=== PATIENT | female | born 1950 | race Caucasian/White ===

== ENCOUNTER 2023-08-16 18:53 | Emergency (ER) | payer MEDICARE, SELFPAY ==
[2023-08-16 18:56] VITALS: BP 149/86; PULSE 94; RESP 18; TEMP 36.2; O2SAT 100; BMI 40.2
--- NOTE | 2023-08-16 19:27 | RAD_ITS ---
EXAM: XR LEFT KNEE COMPLETE, 4 OR MORE VIEWS CLINICAL INDICATION: PAIN AFTER FALL TECHNIQUE: Four or more views of the left knee. COMPARISON: No relevant prior studies available. FINDINGS: BONES/JOINTS: Total left knee arthroplasty. No acute fracture. No subluxation. Normal alignment. No sclerotic or destructive changes observed. SOFT TISSUES: Unremarkable. No soft tissue swelling or gas. No radiopaque foreign body. VASCULATURE: Vascular calcifications. RAD/Knee 4 or More Views IMPRESSION: No acute findings in the left knee. Electronically Signed: Juan Blanc MD at 19:53 EDT ,
--- NOTE | 2023-08-16 19:33 | EDS_ITS ---
HPI <DEACON Robert - Last Filed: 08/16/23 21:56> History of Present Illness Chief Complaint: Fall Narrative Narrative: 73-year-old female tripped down 1 step while taking the trash out to her porch. She landed on her left knee. She states she fell onto the trash bag and did not hit her head or lose consciousness. She hit her life alert and family came over within 20 minutes and helped her up. She was able to walk using her rollator. She does not typically need to use this. She denies weakness or numbness or tingling. She had a left knee replacement in 1995. She is not on blood thinners. [facility] [place] <DEACON Robert - Last Filed: 08/16/23 21:56> [facility] [place] Medical History unable to obtain Allergy/AdvReac Type Severity Reaction Status Date / Time niacin AdvReac Intermediate HOT Verified 08/16/23 18:56 morphine AdvReac Mild Vomiting Verified 08/16/23 18:56 Social History Smoking Status: Never smoker ROS <DEACON Robert Last Filed: 08/16/23 21:56> ROS ED ROS Narrative Neuro: Negative for motor/sensory dysfunction. Skin: Negative for wound. Musc: Positive for left knee pain, trauma. Heme: Negative for easy bruising, bleeding, lymphadenopathy. EXAM <DEACON Robert Last Filed: 08/16/23 21:56> Physical Exam Narrative Exam Narrative: CONST: Patient sitting in no acute distress. EYES: Normal inspection. NECK: Normal inspection. RESP: No respiratory distress, CTAB. CVS: Regular rate and rhythm, no murmur, no gallop. ABD: Soft and nontender, no guarding or rebound, nondistended. SKIN: Color normal, no rash, warm, dry, intact. EXTREMITIES: Normal appearance of upper and lower extremities. No bony tenderness of the upper extremities and 2+ radial pulses. No shortening or rotation of lower extremities, mild tenderness left posterior hip, no pain with logroll. Tender over medial knee joint line. No deformity or crepitus of the knee. Full range of motion with normal extension. No tenderness of the lower leg ankle or foot. Normal sensation and 2+ DP pulses. Upper extremities nontender. NEURO: Oriented and answering questions appropriately. PSYCH: Normal affect. Const Vital Signs: 08/16/23 18:56 08/16/23 21:26 Temperature 97.1 F L 98.1 F Temperature Source Temporal Pulse Rate 94 81 Respiratory Rate 18 16 Blood Pressure 149/86 H 132/81 H Blood Pressure Mean 107 98 Pulse Ox 100 99 Oxygen Delivery Method Room Air <Dr. Papa Keyes DO - Last Filed: 08/16/23 22:55> Physical Exam Const Vital Signs: 08/16/23 18:56 08/16/23 21:26 Temperature 97.1 F L 98.1 F Temperature Source Temporal Pulse Rate 94 81 Respiratory Rate 18 16 Blood Pressure 149/86 H 132/81 H Blood Pressure Mean 107 98 Pulse Ox 100 99 Oxygen Delivery Method Room Air MDM <DEACON Robert - Last Filed: 08/16/23 21:56> MDM MDM Narrative Medical decision making narrative: History gathered from: Patient and family members Differential: Hip/knee contusion versus fracture Patient had a mechanical fall landing on her left knee. She is able to ambulate but has pain in the hip and knee. History of remote left knee replacement. No head injury. She has mild tenderness of left lateral hip. No shortening or rotation. She is tender over the knee medial joint line. Normal extension. Neurovascularly intact. No other injuries noted. X-rays of left hip and knee are negative for acute findings and she is able to ambulate. I discussed symptomatic management and she was discharged in stable condition. Radiography Diagnostic Testing: Clinical Impression(s) from Imaging Studies Knee X-Ray 08/16/23 19:27 IMPRESSION: No acute findings in the left knee. Electronically Signed: Juan Blanc MD at 19:53 EDT , Hip/Pelvis X-Ray 08/16/23 19:35 IMPRESSION: Degenerative findings of the hips. Electronically Signed: Juan Blanc MD at 20:21 EDT , ED attending interpretation of left hip shows no fracture or dislocation. ED attending interpretation of left knee shows arthroplasty intact with no fracture or dislocation. <Dr. Papa Keyes, DO - Last Filed: 08/16/23 22:55> [facility] Narrative Medical decision making narrative: History gathered from: Patient and family members Differential: Hip/knee contusion versus fracture Patient had a mechanical fall landing on her left knee. She is able to ambulate but has pain in the hip and knee. History of remote left knee replacement. No head injury. She has mild tenderness of left lateral hip. No shortening or rotation. She is tender over the knee medial joint line. Normal extension. Neurovascularly intact. No other injuries noted. X-rays of left hip and knee are negative for acute findings and she is able to ambulate. I discussed symptomatic management and she was discharged in stable condition. This patient was seen with a PA/[employer]ORAT[employer] ASSISTANT Individually assessed they patient including history and physical. I have reviewed everything on the chart that is available and agree with the documentation provided by the PA/DAIRY AND FOOD LABORATORY ASSISTANT including discussion about the assessment, treatment plan, discussion, and return precautions. Patient presenting with left hip and knee pain after mechanical fall. Patient states that she was trying to take out the trash and stepped on a step over step falling on her left knee and hip and landing on the trash bag. Patient denies head injury or LOC. She was ambulatory with a walker. Patient states she has mild pain. Physical exam is significant for some mild tenderness over the left patella although the extensor mechanism is intact and she is able to flex the left hip up off the bed without any difficulty. Negative logroll. I have low suspicion for fracture however the patient request x-rays. X-ray 4 views of the left knee and 3 views of the left hip on my interpretation show no acute fracture or subluxation. Patient counseled on findings. Patient discharged stable condition Lab Data Attestation: I reviewed the patient's lab results. Radiography Diagnostic Testing: Clinical Impression(s) from Imaging Studies Knee X-Ray 08/16/23 19:27 IMPRESSION: No acute findings in the left knee. Electronically Signed: Juan Blanc MD at 19:53 EDT Reading Location ID and State: [facility] / [place] , Service support , Hip/Pelvis X-Ray 08/16/23 19:35 IMPRESSION: Degenerative findings of the hips. Electronically Signed: Juan Blanc MD at 20:21 EDT Reading Location ID and State: [facility] / [place] , Service support , Discharge Plan Triage Chief Complaint: Fall ED Midlevel Provider: Beth Brown ED Provider: Papa Keyes Dx/Rx/DC Orders Clinical Impression: Acute pain of left hip, Contusion of left knee Instructions: Bruises (Contusions) Primary Care Provider: Hannah Garcia Referrals: Hannah Garcia MD [Primary Care Provider] - Activity Restrictions/Additional Instructions: The x-rays showed no evidence of broken bones. Ice, rest, and take Tylenol as needed. Disposition Disposition: Home, Self Care Discharge Date/Time: 08/16/23 21:30
--- NOTE | 2023-08-16 19:35 | RAD_ITS ---
EXAM: XR LEFT HIP WITH PELVIS WHEN PERFORMED, 2 OR 3 VIEWS CLINICAL INDICATION: pain after fall TECHNIQUE: Two or three views of the left hip with pelvis when performed. COMPARISON: No relevant prior studies available. FINDINGS: BONES/JOINTS: Osteitis pubis. There are degenerative changes as noted above. Degenerative findings of the hips. No displaced fracture. No destructive or sclerotic lesions. Note that overlapping bowel shadows may however obscure fine detail. Sacroiliac joint is unremarkable. No widening of the pubic symphysis. SOFT TISSUES: Unremarkable. No soft tissue swelling or gas. VASCULATURE: Vascular calcifications. RAD/HIP, UNI W/ Pelvis 2-3 Views IMPRESSION: Degenerative findings of the hips. Electronically Signed: Juan Blanc MD at 20:21 EDT ,
--- OUTSIDE RECORDS SUMMARY | 2023-08-16 20:14 | XMS RPT_ITS | CCD ---
Author Name Unknown Address [address] [place] [address] Organization [facility] Care Team Providers Care Delivery Tech Name Role Phone Jose BRUNO, Keely Chi [facility] Teena (Pharmacist), Addie Unavailable Un available TALAMPAS, KEELY D Primary Care Unavailable KELLY, SHIRA Referring Unavailable TALAMPAS, KEELY D Primary Care Unavailable SOILA, THOMAS Referring Unavailable TALAMPAS, KEELY D Primary Care Unavailable SOILA, THOMAS Attending Unavailable TALAMPAS, KEELY D Primary Care Unavailable KELLY, SHIRA Referring Unavailable SOILA, THOMAS Referring Unavailable TALAMPAS, KEELY D Primary Care Unavailable TALAMPAS, KEELY D Primary Care Unavailable SELF Referring Unavailable SOILA, THOMAS Attending Unavailable SOILA, THOMAS Referring Unavailable TALAMPAS, KEELY D Primary Care Unavailable SOILA, THOMAS Referring Unavailable TALAMPAS, KEELY D Primary Care Unavailable SOILA, THOMAS Referring Unavailable TALAMPAS, KEELY D Primary Care Unavailable TALAMPAS, KEELY D Primary Care Unavailable KELLY, SHIRA Referring Unavailable Allergies Allergy Classification Reported Allergen(s) Allergy Type Date of Onset Reaction(s) Facility (20 sources) Morphine; Translations: [MORPHINE] Drug Allergy 02-12-2010 Vomiting [facility] Work Phone: (20 sources) Niacin; Translations: [NIACIN] Drug Allergy 03-19-2010 Other: See Comments [facility] Work Phone: Medications Completed/Discontinued Medications Medication Drug Class(es) Dates Sig (Normalized) Sig (Original) acetaminophen 500 mg oral tablet (20 sources) Start: 12-18-2005 TYLENOL EXTRA STRENGTH 500 MG TAB Take two(2) tablets every four(4) to six(6) hours as needed. 0 12/18/2005 Active Problems Active Problems Problem Classification Problem Date Documented Date Episodic/Chronic Diabetes mellitus with complications (2 sources) Type 2 diabetes mellitus; Translations: [Type 2 diabetes mellitus with hyperosmolarity without nonketotic hyperglycemic-hyperos molar coma ([facility])] Onset: 12-16-2021 Chronic Diabetes mellitus without complication (20 sources) Diabetes mellitus; Translations: [Type 2 diabetes mellitus without complications] Onset: 08-25-2005 03-29-2015 Chronic Disorders of lipid metabolism (20 sources) Mixed hyperlipidemia; Translations: [Mixed hyperlipidemia] Onset: 03-29-2015 03-29-2015 Chronic Nutritional deficiencies (20 sources) Vitamin D deficiency; Translations: [Vitamin D deficiency, unspecified] Onset: 12-24-2009 12-24-2009 Chronic Osteoarthritis (20 sources) Degenerative joint disease involving multiple joints; Translations: [Polyosteoarthritis, unspecified] 05-07-2005 Chronic Other aftercare (1 source) Patient encounter status; Translations: [Encounter for therapeutic drug level monitoring] Episodic Other connective tissue disease (1 source) Pain of toe of right foot; Translations: [Pain in right toe(s)] Episodic Other connective tissue disease (1 source) Pain in unspecified toe(s); Translations: [Pain of toe, unspecified laterality] Onset: 04-15-2023 Episodic Other nutritional; endocrine; and metabolic disorders (3 sources) Morbid obesity; Translations: [Morbid (severe) obesity due to excess calories] 03-29-2015 Chronic Other nutritional; endocrine; and metabolic disorders (20 sources) Body mass index 40+ - severely obese; Translations: [Morbid (severe) obesity due to excess calories] 12-16-2021 Chronic Other nutritional; endocrine; and metabolic disorders (1 source) Morbid (severe) obesity due to excess calories; Translations: [Morbid obesity (HCC)] Onset: 11-24-2022 Chronic Other nutritional; endocrine; and metabolic disorders (1 source) Blood urate raised; Translations: [Hyperuricemia without signs of inflammatory arthritis and tophaceous disease] 04-20-2023 Episodic Other screening for suspected conditions (not mental disorders or infectious disease) (20 sources) Liver function tests abnormal; Translations: [Other specified abnormal findings of blood chemistry] Onset: 12-20-2009 12-20-2009 Episodic Residual codes; unclassified (1 source) Postmenopausal state; Translations: [Asymptomatic menopausal state] 04-15-2023 Episodic Residual codes; unclassified (1 source) Asymptomatic menopausal state; Translations: [Asymptomatic postmenopausal status] Onset: 04-15-2023 Episodic Past or Other Problems Problem Classification Problem Date Documented Da te Episodic/Chronic Acquired foot deformities (20 sources) Acquired bilateral pes planus; Translations: [Flat foot [pes planus] (acquired), right foot] Onset: 12-20-2009 02-24-2019 Episodic Deficiency and other anemia (20 sources) Anemia; Translations: [Anemia, unspecified] Onset: 12-20-2009 12-20-2009 Episodic Other aftercare (1 source) Encounter for therapeutic drug level monitoring; Translations: [Encounter for therapeutic drug monitoring] Onset: 11-20-2022 Episodic Other connective tissue disease (20 sources) Acquired trigger finger; Translations: [Trigger finger, unspecified finger] Onset: 12-18-2005 05-27-2021 Episodic Other connective tissue disease (1 source) Pain in right toe(s); Translations: [Pain of toe of right foot] Onset: 11-24-2022 Episodic Other gastrointestinal disorders (20 sources) Diarrhea; Translations: [Diarrhea, unspecified] Onset: 12-20-2009 12-20-2009 Episodic Results Test Name Value Interpretation Reference Range Facil ity Vital Signs Date Time Vital Sign Value Performing Clinician Violet kevin 11-24-2022 15:11-0400 Body weight 114.76 kg Thomas Cm APRN.CN P Work Phone: [facility] 11-24-2022 15:11-0400 Diastolic blood pressure 76 mm[Hg] Thomas Cm APRN.CURRENCY COUNTER Work Phone: [facility] 11-24-2022 15:11-0400 Heart rate 94 /min Thomas Cm APRN.CN P Work Phone: [facility] 11-24-2022 15:11-0400 SaO2% (BldA) [Mass fraction] 99 % Thomas Cm APRN.CURRENCY COUNTER Work Phone: [facility] 11-24-2022 15:11-0400 Systolic blood pressure 116 mm[Hg] Thomas Soila PROGRESS CLERK.CURRENCY COUNTER Work Phone: [facility] Encounters Encounter Date Encounter Type Care Provider Facility Start: 07-11-2023 ambulatory Rui Guzmán (Pas) [facility] Procedures Date Procedure Procedure Detail Performing Clinician Start: 04-15-2023 Dxa bone density kalina dy 1/> sites axial matthew Weldon Soila PROGRESS CLERK.CURRENCY COUNTER Work Phone: Start: 04-15-2023 Digital breast tomosynthesis unilateral Shira Kelly PROGRESS CLERK.CERTIFIED FORKLIFT OPERATOR Work Phone: Start: 03-18-2023 Screening digital br east tomosynthesis bi Shira Kelly PROGRESS CLERK.CERTIFIED FORKLIFT OPERATOR Work Phone: Start: 02-05-2022 End: 02-05-2022 Screening mammography bi 2-view breast inc cad Keely Garcia MD Work Phone: Start: 02-20-2021 Adult depression scr eening assessment Keely Garcia MD Work Phone: Start: 01-24-2021 Mammography Keely bright MD Work Phone: Start: 03-18-2013 Colonoscopy Keely bright MD Work Phone: Plan of Treatment Date Care Activity Detail Author Start: 03-25-2024 Annual PCP Team Chronic Disease Visit Annual PCP Team Chronic Disease Visit [facility] Start: 03-25-2024 Hepatitis B screening Urine Albumin:Creatinine Ratio [facility] Start: 03-18-2024 Hepatitis B surface antibody level LDL Cholesterol [facility] Start: 03-18-2024 Mammography Mammogram Screening [facility] Start: 03-18-2024 Screening for malignant neoplasm of breast Mammogram Screening [facility] Start: 02-07-2024 Glaucoma screening Dilated Retinal Exam [facility] Start: 02-07-2024 Hepatitis C antibody, confirmatory test Dilated Retinal Exam [facility] Start: 11-25-2023 3 comp foot exam completed DIABETIC FOOT EXAM [facility] Start: 11-25-2023 ANNUAL PCP TEAM CHRONIC DISEASE VISIT ANNUAL PCP TEAM CHRONIC DISEASE VISIT [facility] Start: 11-25-2023 Diabetic foot examination Diabetic Foot Exam [facility] Start: 11-21-2023 Hepatitis B surface antibody level LDL CHOLESTEROL [facility] Start: 09-17-2023 Hemoglobin A1c measurement HbA1C [facility] Start: 09-17-2023 Hemoglobin A1c/Hemoglobin.total in Blood HbA1C [facility] Start: 06-01-2023 Advance Directive Discussion Advance Directive Discussion [facility] Start: 06-01-2023 Depression Assessment Depression Assessment [facility] Start: 03-20-2023 End: 06-19-2023 ALBUMIN/CREAT RATIO RND UR ALBUMIN/CREAT RATIO RND UR Lab Routine Controlled type 2 diabetes mellitus without complication, without long-term current use of insulin (HCC) Expected: 03/20/2023, Expires: 06/19/2023 [facility] Work Phone: Immunizations Immunization Date Immunization Notes Care Provider Fa rachel 06-06-2022 influenza (HD-IIV4) vaccine, age 65+ yr, high dose, quadrivalent, PF (FLUZONE HIGH-DOSE) Thomas Cm APRN.CURRENCY COUNTER Work Phone: [facility] Work Phone: 06-06-2022 influenza virus vacc ine, unspecified formulation Keely Garcia MD Work Phone: [facility] 05-28-2021 zoster vaccine recombinant Keely Garcia MD Work Phone: [facility] Work Phone: 03-26-2021 zoster vaccine recombinant Thomas Cm APRN.CURRENCY COUNTER Work Phone: [facility] Work Phone: 03-15-2021 influenza (HD-IIV4) vaccine, age 65+ yr, high dose, quadrivalent, PF (FLUZONE HIGH-DOSE) Thomas Cm APRN.CURRENCY COUNTER Work Phone: [facility] Work Phone: 03-15-2021 influenza, high dose seasonal, preservative-free Keely Garcia MD Work Phone: [facility] Work Phone: 03-31-2020 influenza (aIIV4) vaccine, age 65+ yr, quadrivalent, PF (FLUAD QUAD) Thomas Cm APRN.CURRENCY COUNTER Work Phone: [facility] Work Phone: 03-30-2020 influenza, high dose seasonal, preservative-free Keely Garcia MD Work Phone: [facility] 05-07-2019 influenza, high dose seasonal, preservative-free Keely Garcia MD Work Phone: [facility] Work Phone: 05-21-2018 influenza, high dose seasonal, preservative-free Keely Garcia MD Work Phone: [facility] Work Phone: 03-01-2016 influenza, high dose seasonal, preservative-free Keely Garcia MD Work Phone: [facility] 03-08-2013 influenza virus vacc ine, unspecified formulation Keely Garcia MD Work Phone: [facility] 03-05-2012 influenza virus vacc ine, unspecified formulation Keely Garcia MD Work Phone: [facility] 12-20-2009 pneumococcal polysaccharide vaccine, 23 valent Keely Garcia MD Work Phone: [facility] Work Phone: 12-18-2005 diphtheria, tetanus toxoids and acellular pertussis vaccine Keely Garcia MD Work Phone: [facility] Work Phone: 12-18-2005 tetanus toxoid, redu gary diphtheria toxoid, and acellular pertussis vaccine, adsorbed Keely Garcia MD Work Phone: [facility] Work Phone: Payers Date Payer Category Payer Medicare A[employer] MEDICARE A ETNA MEDICARE PPO [id number] 2021-Present [phone] [address] [place] [address] PPO [id number] 2021 Medicare [id number] 2014 Medicare A[employer]NA MEDICARE A ETNA MEDICARE PPO [id number] 2014-Present [phone] [address] [place] [address] PPO [id number] Social History Date Type Detail Facility Start: 05-03-2018 End: 11-24-2022 Tobacco smoking status NHIS Never smoked tobacco [facility] Start: 02-20-2021 End: 03-25-2023 Alcohol intake Current non-drinker of alcohol (finding) [facility] Start: 1950 Sex Assigned At Not on file [facility] Start: 05-03-2018 End: 11-24-2022 Tobacco use and exposure Smokeless tobacco non-user [facility] Work Phone: Start: 01-17-2022 End: 01-27-2022 Exposure to SARS-CoV-2 (event) Unable to assess [facility] Work Phone: Start: 11-24-2022 End: 03-25-2023 History of Social function [facility] Work Phone: Start: 11-24-2022 End: 03-25-2023 Tobacco use panel [facility] Work Phone: Adult Depression Screening Assessment 2 [facility] Work Phone: Medical Equipment Procedure Code Equipment Code Equipment Origin al Text Equipment Identifier Dates Start: 02-09-2015 End: 03-25-2023 Clinical Notes 07-16-2017 to 07-11-2023 Rui Owusu - 07/11/2023 2:48 PM ESTTelephone Encounter - Anila Marks RN - 04/20/2023 11:00 AM ESTTelephone Encounter - Sruthi Martinez OCCA - 04/20/2023 10:46 AM EST Note Date & Type Note Facility 07-11-2023 Note HNO ID: [id number] Author: ?, ?, ? Service: ? Author Type: ? Type: Progress Notes Filed: 07/11/2023 14:50 Note Text: POPULATION HEALTH NAVIGATION OUTREACH Action/FYI Pt due for colonoscopy Mammogram 03/18/24 JESS 02/07/24 Flu shot AD Called pt and left voicemail Sent mychart message Patient Identified by Name and : NO Outreach Outcome/Action Unable to reach patient: Left message MyChart message sent Advance Directives sent Did you use a PCP flex slot to schedule this appointment? N/A Reason for Outreach Care Gap or Scheduling/Wellness visits Payer: Payor: [facility] MEDICARE / Plan: AETNA MEDICARE PPO / Product Type: PPO / Care Gap Reviewed:: Breast Cancer screening Colorectal Cancer Screening Diabetic Eye Exam Flu Vaccine AD Reminder: Reminder note to check Health Maintenance for items below Health Maintenance items due: RSV Vaccine(1 - 1-dose 60+ series) Never done Pneumococcal Vaccine: 65+(2 of 2 - PCV) due on 12/20/2010 DTaP,Tdap,Td Vaccine(3 - Td or Tdap) due on 12/19/2015 Influenza Vaccine(1) due on 01/30/2023 Covid-19 Vaccine(4 - 2022- season) due on 01/30/2023 Colorectal Cancer Screening due on 03/18/2023 Advance Directive Discussion Never done Depression Assessment due on 06/01/2023 Navigation Signature: Rui Owusu July 11, 2023 2:48 PM [facility] 07-11-2023 History of Presen t illness Narrative POPULATION HEALTH NAVIGATION OUTREACH Action/FYI Pt due for colonoscopy Mammogram 03/18/24 JESS 02/07/24 Flu shot AD Called pt and left voicemail Sent mychart message Patient Identified by Name and : NO Outreach Outcome/Action Unable to reach patient: Left message MyChart message sent Advance Directives sent Did you use a PCP flex slot to schedule this appointment? N/A Reason for Outreach Care Gap or Scheduling/Wellness visits Payer: Payor: [facility] MEDICARE / Plan: A[employer] MEDICARE PPO / Product Type: PPO / Care Gap Reviewed:: Breast Cancer screening Colorectal Cancer Screening Diabetic Eye Exam Flu Vaccine AD Reminder: Reminder note to check Health Maintenance for items below Health Maintenance items due: RSV Vaccine(1 - 1-dose 60+ series) Never done Pneumococcal Vaccine: 65+(2 of 2 - PCV) due on 12/20/2010 DTaP,Tdap,Td Vaccine(3 - Td or Tdap) due on 12/19/2015 Influenza Vaccine(1) due on 01/30/2023 Covid-19 Vaccine(4 - 2022- season) due on 01/30/2023 Colorectal Cancer Screening due on 03/18/2023 Advance Directive Discussion Never done Depression Assessment due on 06/01/2023 Navigation Signature: Rui Owusu July 11, 2023 2:48 PM documented in this encounter [facility] 07-11-2023 Note Patient Outreach (NE TNAV) MARY VOGEL ([id number]) 1950 F Date Time Provider Department 07/11/23 RUI OWUSU (HELEN) NETNAV During your visit today, we recorded the following information about you: Rui Owusu 07/11/2023 2:50 PM Signed POPULATION HEALTH NAVIGATION OUTREACH Action/ Pt due for colonoscopy Mammogram 03/18/24 JESS 02/07/24 Flu shot AD Called pt and left voicemail Sent Chairishhart message Patient Identified by Name and : NO Outreach Outcome/Action Unable to reach patient: Left message MyChart message sent Advance Directives sent Did you use a PCP flex slot to schedule this appointment? N/A Reason for Outreach Care Gap or Scheduling/Wellness visits Payer: Payor: [employer] MEDICARE / Plan: AETNA MEDICARE PPO / Product Type: PPO / Care Gap Reviewed:: Breast Cancer screening Colorectal Cancer Screening Diabetic Eye Exam Flu Vaccine AD Reminder: Reminder note to check Health Maintenance for items below Health Maintenance items due: RSV Vaccine(1 - 1-dose 60+ series) Never done Pneumococcal Vaccine: 65+(2 of 2 - PCV) due on 12/20/2010 DTaP,Tdap,Td Vaccine(3 - Td or Tdap) due on 12/19/2015 Influenza Vaccine(1) due on 01/30/2023 Covid-19 Vaccine(4 - 2022- season) due on 01/30/2023 Colorectal Cancer Screening due on 03/18/2023 Advance Directive Discussion Never done Depression Assessment due on 06/01/2023 Navigation Signature: Rui Owusu July 11, 2023 2:48 PM Allergies As of Date: 07/11/2023 Noted Allergy Reaction MORPHINE 02/12/2010 11 - Vomiting NIASPAN (NIACIN) 03/19/2010 14 - Other: See Comments Comments: hot flashes Date Reviewed: 03/25/2023 Reviewed by: Thomas Cm APRN.CURRENCY COUNTER - Fully Assessed Reason for Visit: Population Health Navigation Outreach [3910] Cmt: [employer] care gaps Prescriptions as of 07/11/2023 - allopurinol (ZYLOPRIM) 100 mg tablet Take 1 tablet by mouth once daily. For gout. - blood sugar diagnostic (FREESTYLE LITE STRIPS) test strip Check sugars 2 times daily and as needed for signs or symptoms of low or high sugar. E11.65 Insulin: NO - lisinopril 2.5 mg tablet Take 1 tablet by mouth once daily. - metFORMIN (GLUCOPHAGE) 500 mg tablet Take 2 tablets by mouth two times a day with meals. As directed - celecoxib (CELEBREX) 200 mg capsule Take 1 capsule by mouth once daily as needed. - dulaglutide (TRULICITY) 3 mg/0.5 mL pen injector Inject 3 mg subcutaneously one time a week. - lancets (FREESTYLE LANCETS) 28 gauge Check sugars 2 times daily and as needed for signs or symptoms of low or high sugar. E11.65 Insulin: NO - pravastatin (PRAVACHOL) 20 mg tablet Take 1 tablet by mouth once daily. - COMPOUNDED PRESCRIPTION diabetic shoes - calcium carbonate (CALTRATE) 600 mg calcium (1,500 mg) tab Take 600 mg by mouth twice daily. - Insulin [place], Disposable, (PEN NEEDLE) 29 gauge X 1/2 ndle USE ONE NEEDLE FOR EACH DOSE twice a day as directed - Cholecalciferol, Vitamin D3, 1,000 unit cap Take 1 capsule by mouth once daily. - TYLENOL EXTRA STRENGTH 500 MG TAB Take two(2) tablets every four(4) to six(6) hours as needed. Problem List As Of Date 07/11/2023 Noted Resolved GENERAL OSTEOARTHROSIS [M15.9] Morbid obesity with BMI of 40.0-44.9, adult (HC* Type 2 diabetes mellitus, without long-term cur*08/25/2005 TRIGGER FINGER, left and right ring and pinky f*12/18/2005 Acquired pes planus of both feet [M21.41, M21.4*12/20/2009 Diarrhea [R19.7] 12/20/2009 03/25/2023 Abnormal liver function test [R79.89] 12/20/2009 03/25/2023 Anemia [D64.9] 12/20/2009 Vitamin D Deficiency [E55.9] 12/24/2009 Mixed hyperlipidemia [E78.2] 03/29/2015 Uncontrolled type 2 diabetes mellitus without c*07/16/2017 02/24/2019 Encounter Status:Closed by RUI OWUSU on 07/11/23 [facility] 04-20-2023 Miscellaneous Notes Patient calls and notified of results and providers instructions. Patient verbalizes understanding. Patient would like allopurinol sent to [facility]. Anila Marks RN TC to patient with no answer. Left VM to return call to office to receive results. PEG Zamora Please let Mary know that her bone density scan is normal, no signs of bone weakening. Repeat scanning in 2 years is recommended. Her uric acid level is elevated which can indicate gout. Would she like to try medication such as allopurinol to lower the uric acid? Thomas Cm APRN.CNP documented in this encounter [facility] 04-15-2023 Note HNO ID: [id number] Author: Julio Cesar Bryant RT(Merry) Service: ? Author Type: Technologist Type: Progress Notes Filed: 04/15/2023 10:03 AM Note Text: Radiology Service Progress Note PATIENT NAME: Mary Vogel DATE OF SERVICE: April 15, 2023 TIME: 9:52 AM PATIENT IDENTITY VERIFICATION COMPLETED USING TWO (2) IDENTIFIERS: Name and Date of confirmed by patient verbally. FALL SCREENING: Has the patient had 2 falls in the last year or 1 fall with injury or currently using an Ambulatory Assistive Device (Walker, Cane, Wheelchair, Crutches, etc.)? No PATIENT GENDER DATA: Female. status: : No status: NO. PATIENT RELEVANT IMPLANT DATA REVIEWED: Not Applicable RADIOLOGY DEPARTMENT: Bone Density PERIPHERAL IV DATA: Not applicable SIGNED BY: RT Jian(R) April 15, 2023 9:52 AM [facility] 04-15-2023 Note HNO ID: [id number] Author: Pierce Ivan Mammo Tech Service: ? Author Type: Technologist Type: Progress Notes Filed: 04/15/2023 9:50 AM Note Text: Radiology Service Progress Note PATIENT NAME: Mary Vogel DATE OF SERVICE: April 15, 2023 TIME: 9:50 AM PATIENT IDENTITY VERIFICATION COMPLETED USING TWO (2) IDENTIFIERS: Name and Date of confirmed by patient verbally. FALL SCREENING: Has the patient had 2 falls in the last year or 1 fall with injury or currently using an Ambulatory Assistive Device (Walker, Cane, Wheelchair, Crutches, etc.)? No PATIENT GENDER DATA: Female. status: : No status: NO. PATIENT RELEVANT IMPLANT DATA REVIEWED: Not Applicable RADIOLOGY DEPARTMENT: Mammography PERIPHERAL IV DATA: Not applicable SIGNED BY: Tri Travis April 15, 2023 9:50 AM [facility] 04-15-2023 History of Presen t illness Narrative Radiology Service Progress Note PATIENT NAME: Mary Vogel DATE OF SERVICE: April 15, 2023 TIME: 9:52 AM PATIENT IDENTITY VERIFICATION COMPLETED USING TWO (2) IDENTIFIERS: Name and Date of confirmed by patient verbally. FALL SCREENING: Has the patient had 2 falls in the last year or 1 fall with injury or currently using an Ambulatory Assistive Device (Walker, Cane, Wheelchair, Crutches, etc.)? No PATIENT GENDER DATA: Female. status: : No status: NO. PATIENT RELEVANT IMPLANT DATA REVIEWED: Not Applicable RADIOLOGY DEPARTMENT: Bone Density PERIPHERAL IV DATA: Not applicable SIGNED BY: RT Jian(R) April 15, 2023 9:52 AM documented in this encounter [facility] 04-15-2023 History of Presen t illness Narrative Radiology Service Progress Note PATIENT NAME: Mary Vogel DATE OF SERVICE: April 15, 2023 TIME: 9:50 AM PATIENT IDENTITY VERIFICATION COMPLETED USING TWO (2) IDENTIFIERS: Name and Date of confirmed by patient verbally. FALL SCREENING: Has the patient had 2 falls in the last year or 1 fall with injury or currently using an Ambulatory Assistive Device (Walker, Cane, Wheelchair, Crutches, etc.)? No PATIENT GENDER DATA: Female. status: : No status: NO. PATIENT RELEVANT IMPLANT DATA REVIEWED: Not Applicable RADIOLOGY DEPARTMENT: Mammography PERIPHERAL IV DATA: Not applicable SIGNED BY: Tri Travis April 15, 2023 9:50 AM documented in this encounter [facility] 03-25-2023 Note HNO ID: [id number] Author: Thomas Cm APRN.CURRENCY COUNTER Service: ? Author Type: Nurse Practitioner Type: Progress Notes Filed: 03/25/2023 10:54 AM Note Text: SUBJECTIVE Mary Vogel is a 73 year old female here today for a check up on her medical problems. Chief Complaint Patient presents with: Diabetes: 4 month follow up HPI Mary Vogel is a 73 year old female here today for a check up on her diabetes. Working on weight loss. Down 37 pounds. Noticing a plateau. Goal is 200. Had labs done, cholesterol looking better with weight loss. Pain in her right great toe at the toenail. Questioning gout, was to have uric acid done with labs but not done. Low sugars are around 100's for fasting sugars at home, 140's highest. She is compliant on taking her medications :Yes She has been checking fingerstick blood sugars: Yes Her blood sugars have been controlled? Yes Any low blood sugar reactions? No Denies increased urinating, eating, and drinking. Most recent HbA1c tests were: Lab Results Component Value Date HBA1C 6.1 (H) 03/18/2023 HBA1C 6.9 (H) 02/18/2021 HBA1C 6.9 (H) 08/10/2020 Her medications were reviewed today and her list is now up to date. Medications Current Outpatient Medications Medication Sig pravastatin (PRAVACHOL) 20 mg tablet Take 1 tablet by mouth once daily. calcium carbonate (CALTRATE) 600 mg calcium (1,500 mg) tab Take 600 mg by mouth twice daily. Cholecalciferol, Vitamin D3, 1,000 unit cap Take 1 capsule by mouth once daily. TYLENOL EXTRA STRENGTH 500 MG TAB Take two(2) tablets every four(4) to six(6) hours as needed. blood sugar diagnostic (FREESTYLE LITE STRIPS) test strip Check sugars 2 times daily and as needed for signs or symptoms of low or high sugar. E11.65 Insulin: NO lisinopril 2.5 mg tablet Take 1 tablet by mouth once daily. metFORMIN (GLUCOPHAGE) 500 mg tablet Take 2 tablets by mouth two times a day with meals. As directed celecoxib (CELEBREX) 200 mg capsule Take 1 capsule by mouth once daily as needed. dulaglutide (TRULICITY) 3 mg/0.5 mL pen injector Inject 3 mg subcutaneously one time a week. lancets (FREESTYLE LANCETS) 28 gauge Check sugars 2 times daily and as needed for signs or symptoms of low or high sugar. E11.65 Insulin: NO COMPOUNDED PRESCRIPTION diabetic shoes Insulin [place], Disposable, (PEN NEEDLE) 29 gauge X 1/2 ndle USE ONE NEEDLE FOR EACH DOSE twice a day as directed No current facility-administered medications for this visit. ALLERGIES Allergen Reactions Morphine Vomiting Niaspan [Niacin] Other: See Comments hot flashes ACTIVE PROBLEM LIST Mixed Hyperlipidemia - 03/29/2015 Vitamin D Deficiency - 12/24/2009 Acquired Pes Planus of Both Feet - 12/20/2009 Anemia - 12/20/2009 TRIGGER FINGER, left and right ring and pinky fingers - 12/18/2005 Comment: right ring finger locks so will see Dr. Dixon (Dec 2011) Type 2 Diabetes Mellitus, Without Long-Term Current Use of Insulin ([facility]) - 08/25/2005 Generalized Osteoarthrosis, Unspecified Site Morbid Obesity With Bmi of 40.0-44.9, Adult ([facility]) Social History Tobacco Use Smoking status: Never Smokeless tobacco: Never Substance Use Topics Alcohol use: No Drug use: No Review of Systems Constitutional: Negative. Respiratory: Negative. Cardiovascular: Negative. OBJECTIVE BP 120/70 Pulse 95 Wt 216 lb (98.0kg) SpO2 97% Physical Exam Vitals and nursing note reviewed. Constitutional: General: She is awake. She is not in acute distress. Appearance: Normal appearance. She is well-developed and well-groomed. She is not ill-appearing, toxic-appearing or diaphoretic. HENT: Head: Normocephalic. Right Ear: External ear normal. Left Ear: External ear normal. Nose: Nose normal. Eyes: General: Vision grossly intact. Conjunctiva/sclera: Conjunctivae normal. Pupils: Pupils are equal, round, and reactive to light. Neck: Vascular: No JVD. Trachea: Trachea normal. Cardiovascular: Rate and Rhythm: Normal rate and regular rhythm. Pulses: Normal pulses. Heart sounds: Normal heart sounds. No murmur heard. Pulmonary: Effort: Pulmonary effort is normal. No accessory muscle usage, prolonged expiration or respiratory distress. Breath sounds: Normal breath sounds. Musculoskeletal: Cervical back: Neck supple. Skin: General: Skin is warm and dry. Capillary Refill: Capillary refill takes less than 2 seconds. Neurological: General: No focal deficit present. Mental Status: She is alert and oriented to person, place, and time. Mental status is at baseline. Psychiatric: Attention and Perception: Attention and perception normal. Mood and Affect: Mood and affect normal. Speech: Speech normal. Behavior: Behavior normal. Behavior is cooperative. Thought Content: Thought content normal. Cognition and Memory: Cognition and memory normal. Judgment: Judgment normal. ASSESSMENT/PLAN: 1. Controlled type 2 di (more content not included)... [facility] 03-20-2023 Miscellaneous Notes Lab is needing a new order for the UA as the original order was canceled. documented in this encounter [facility] 03-18-2023 Note HNO ID: [id number] Author: Marie Maki Mammo Tech Service: ? Author Type: Process Treater Type: Progress Notes Filed: 03/18/2023 10:53 AM Note Text: Radiology Service Progress Note PATIENT NAME: Mary Vogel DATE OF SERVICE: March 18, 2023 TIME: 10:29 AM PATIENT IDENTITY VERIFICATION COMPLETED USING TWO (2) IDENTIFIERS: Name and Date of confirmed by patient verbally. FALL SCREENING: Has the patient had 2 falls in the last year or 1 fall with injury or currently using an Ambulatory Assistive Device (Walker, Cane, Wheelchair, Crutches, etc.)? No PATIENT GENDER DATA: Female. status: : No status: NO. PATIENT RELEVANT IMPLANT DATA REVIEWED: Not Applicable RADIOLOGY DEPARTMENT: Mammography PERIPHERAL IV DATA: Not applicable SIGNED BY: Tri Flood March 18, 2023 10:29 AM [facility] 03-18-2023 History of Presen t illness Narrative Radiology Service Progress Note PATIENT NAME: Mary Vogel DATE OF SERVICE: March 18, 2023 TIME: 10:29 AM PATIENT IDENTITY VERIFICATION COMPLETED USING TWO (2) IDENTIFIERS: Name and Date of confirmed by patient verbally. FALL SCREENING: Has the patient had 2 falls in the last year or 1 fall with injury or currently using an Ambulatory Assistive Device (Walker, Cane, Wheelchair, Crutches, etc.)? No PATIENT GENDER DATA: Female. status: : No status: NO. PATIENT RELEVANT IMPLANT DATA REVIEWED: Not Applicable RADIOLOGY DEPARTMENT: Mammography PERIPHERAL IV DATA: Not applicable SIGNED BY: Tri Flood March 18, 2023 10:29 AM documented in this encounter [facility] 03-18-2023 Miscellaneous Notes Additional imaging needed, focal asymmetry left breast diagnostic mammogram and ultrasound recommended documented in this encounter [facility] 03-05-2023 Miscellaneous Notes Scheduled patient for screening mammogram. BHARATH Manning ok Mammogram order pended for review/approval. Sepideh Beltran LPN Patient called requesting pcp places a mammogram order Please advise documented in this encounter [facility] 03-02-2023 Miscellaneous Notes Order and office note faxed to [facility] as requested. Reviewed that one of my DM foot exams, noted had callus on left 4th knuckle and flat feet (for which wears orthotics) Had followed with Dr. Claudio before. In the past had issues with numbness. Printed order to fax Printed Thomas's most recent progress note since did DM foot exam though did not mention flat feet (should still be okay that at least had exam done). History of Pes Planus still in problem list. Patient is requesting a prescription for a pair of diabetic shoes be sent to [facility] in [place]. Please review. Clarisse Kahn February 19, 2023 9:50 AM documented in this encounter [facility] 01-14-2023 Miscellaneous Notes Patient request refill to go to local pharmacy. Sepideh Beltran LPN Patient has been identified by name and date of : Yes Last office visit in this department: 11/24/2022 RX INSTRUCTIONS: Patient aware RX will be sent to pharmacy. No need to notify patient. Patient phones requesting refills as follows: Requested Prescriptions Pending Prescriptions Disp Refills lancets (FREESTYLE LANCETS) 28 gauge 100 Each 11 Sig: Check sugars 2 times daily and as needed for signs or symptoms of low or high sugar. E11.65 Insulin: NO Please review and advise. Anamika Johnson documented in this encounter [facility] 12-31-2022 Miscellaneous Notes Patient has been identified by name and date of : Yes Patient phones for refill(s): Requested Prescriptions Pending Prescriptions Disp Refills lancets (FREESTYLE LANCETS) 28 gauge 100 Each 11 Sig: Check sugars 2 times daily and as needed for signs or symptoms of low or high sugar. E11.65 Insulin: NO Date of last office visit in primary care: 11/24/2022 4 month follow-up: 03/25/2023 Last 2 Encounter Wt Readings: Date: Wt: 11/24/2022 114.8 kg (253 lb) 02/20/2021 107 kg (236 lb) Previous labs/tests for medication: Diabetes: Hemoglobin A1C (%) Date Value 02/18/2021 6.9 08/10/2020 6.9 Please advise. Thank you. Sepideh Beltran LPN Patient has been identified by name and date of : Yes Last office visit in this department: Visit date not found RX INSTRUCTIONS: Patient aware RX will be sent to pharmacy. No need to notify patient. Patient phones requesting refills as follows: Requested Prescriptions Pending Prescriptions Disp Refills lancets (FREESTYLE LANCETS) 28 gauge 100 Each 11 Sig: Check sugars 2 times daily and as needed for signs or symptoms of low or high sugar. E11.65 Insulin: NO Please review and advise. Trinh Gross documented in this encounter [facility] 11-24-2022 Note HNO ID: [id number] Author: Thomas Cm APRN.CURRENCY COUNTER Service: ? Author Type: Nurse Practitioner Type: Progress Notes Filed: 11/24/2022 4:30 PM Note Text: SUBJECTIVE Mary Vogel is a 72 year old female here today for a check up on her medical problems. Chief Complaint Patient presents with: Weight Problem: lost about 1 1/2 years ago and has been eating more than normal. Feels like depression is good and not causing the over eating. Diabetes: follow up am sugars are higher than normal 125-145 prior to over eating was her normal average blood sugar 160-170 since passing of HPI Mary Vogel is a 72 year old female established patient of Keely Garcia MD who presents today for follow up. She notes her about a year and a half ago. Since then she has been going out to eat more. Noticing some weight gain. Blood sugars running higher. She does not really feel depressed but more so down at times, stressed with decisions. Has been meeting with ladies groups and enjoys this. She did have some right great toe pain, wondered about gout, resolved once toe nails got cut, was starting an in grown toe nail possibly. Mary Vogel is a 72 year old female here today for a check up on her diabetes. She is compliant on taking her medications :Yes She has been checking fingerstick blood sugars: Yes Her blood sugars have been controlled? Increasing High sugars: 170's Low sugars: 130's Denies difficulty with this skill. Any low blood sugar reactions? No Denies increased urinating, eating, and drinking. Most recent HbA1c tests were: Lab Results Component Value Date HBA1C 6.9 (H) 02/18/2021 HBA1C 6.9 (H) 08/10/2020 HBA1C 7.0 (H) 04/20/2020 Depression Screening 05/03/2018 02/20/2021 02/20/2021 11/24/2022 PHQ-2 Score 0 1 1 2 Depression screening tool completed and reviewed. Based on score and interview, patient is not at risk for depression. Screening tool discussed with patient, and I recommended no further intervention at this time. Her medications were reviewed today and her list is now up to date. Medications Current Outpatient Medications Medication Sig pravastatin (PRAVACHOL) 20 mg tablet Take 1 tablet by mouth once daily. celecoxib (CELEBREX) 200 mg capsule TAKE 1 CAPSULE DAILY NEEDED metFORMIN (GLUCOPHAGE) 500 mg tablet Take 2 tablets by mouth twice daily with meals. As directed calcium carbonate (CALTRATE) 600 mg calcium (1,500 mg) tab Take 600 mg by mouth twice daily. Cholecalciferol, Vitamin D3, 1,000 unit cap Take 1 capsule by mouth once daily. TYLENOL EXTRA STRENGTH 500 MG TAB Take two(2) tablets every four(4) to six(6) hours as needed. dulaglutide (TRULICITY) 3 mg/0.5 mL pen injector Inject 3 mg subcutaneously one time a week. lisinopril 2.5 mg tablet Take 1 tablet by mouth once daily. blood sugar diagnostic (FREESTYLE LITE STRIPS) test strip Check sugars 2 times daily and as needed for signs or symptoms of low or high sugar. E11.65 Insulin: NO lancets (FREESTYLE LANCETS) 28 gauge Check sugars 2 times daily and as needed for signs or symptoms of low or high sugar. E11.65 Insulin: NO COMPOUNDED PRESCRIPTION diabetic shoes meclizine (ANTIVERT) 12.5 mg tab Take 1 tablet by mouth twice daily as needed (dizziness). (Patient not taking: Reported on 02/20/2021 ) Insulin [place], Disposable, (PEN NEEDLE) 29 gauge X 1/2 ndle USE ONE NEEDLE FOR EACH DOSE twice a day as directed omega-3 fatty acids/vitamin e(FISH OIL 1,000 MG CAP) Take one(1) tablet two(2) times daily. (Patient not taking: Take one(1) tablet two(2) times daily. ) OCUVITE LUTEIN CAP Take one(1) tablet daily. (Patient not taking: Take one(1) tablet daily.) No current facility-administered medications for this visit. ALLERGIES Allergen Reactions Morphine Vomiting Niaspan [Niacin] Other: See Comments hot flashes ACTIVE PROBLEM LIST Mixed Hyperlipidemia - 03/29/2015 Vitamin D Deficiency - 12/24/2009 Acquired Pes Planus of Both Feet - 12/20/2009 Diarrhea - 12/20/2009 Abnormal Liver Function Test - 12/20/2009 Anemia - 12/20/2009 TRIGGER FINGER, left and right ring and pinky fingers - 12/18/2005 Comment: right ring finger locks so will see Dr. Dixon (Dec 2011) Type 2 Diabetes Mellitus, Without Long-Term Current Use of Insulin ([facility]) - 08/25/2005 Generalized Osteoarthrosis, Unspecified Site Morbid Obesity With Bmi of 40.0-44.9, Adult ([facility]) Social History Tobacco Use Smoking status: Never Smokeless tobacco: Never Substance Use Topics Alcohol use: No Drug use: No Review of Systems Respiratory: Negative. Cardiovascular: Negative. OBJECTIVE BP 116/76 Pulse 94 Wt 253 lb (114.8kg) SpO2 99% Physical Exam Vitals and nursing note reviewed. Constitutional: General: She is awake. She is not in acute distress. Appearance: Normal appearance. She is well-developed and well-groomed. She is obese. She is not ill (more content not included)... [facility] 11-24-2022 History of Presen t illness Narrative SUBJECTIVE Mary Vogel is a 72 year old female here today for a check up on her medical problems. Chief Complaint Patient presents with: Weight Problem: lost about 1 1/2 years ago and has been eating more than normal. Feels like depression is good and not causing the over eating. Diabetes: follow up am sugars are higher than normal 125-145 prior to over eating was her normal average blood sugar 160-170 since passing of HPI Mary Vogel is a 72 year old female established patient of Keely Garcia MD who presents today for follow up. She notes her about a year and a half ago. Since then she has been going out to eat more. Noticing some weight gain. Blood sugars running higher. She does not really feel depressed but more so down at times, stressed with decisions. Has been meeting with ladies groups and enjoys this. She did have some right great toe pain, wondered about gout, resolved once toe nails got cut, was starting an in grown toe nail possibly. Mary Vogel is a 72 year old female here today for a check up on her diabetes. She is compliant on taking her medications :Yes She has been checking fingerstick blood sugars: Yes Her blood sugars have been controlled? Increasing High sugars: 170's Low sugars: 130's Denies difficulty with this skill. Any low blood sugar reactions? No Denies increased urinating, eating, and drinking. Most recent HbA1c tests were: Lab Results Component Value Date HBA1C 6.9 (H) 02/18/2021 HBA1C 6.9 (H) 08/10/2020 HBA1C 7.0 (H) 04/20/2020 Depression Screening 05/03/2018 02/20/2021 02/20/2021 11/24/2022 PHQ-2 Score 0 1 1 2 Depression screening tool completed and reviewed. Based on score and interview, patient is not at risk for depression. Screening tool discussed with patient, and I recommended no further intervention at this time. Her medications were reviewed today and her list is now up to date. Medications Current Outpatient Medications Medication Sig pravastatin (PRAVACHOL) 20 mg tablet Take 1 tablet by mouth once daily. celecoxib (CELEBREX) 200 mg capsule TAKE 1 CAPSULE DAILY NEEDED metFORMIN (GLUCOPHAGE) 500 mg tablet Take 2 tablets by mouth twice daily with meals. As directed calcium carbonate (CALTRATE) 600 mg calcium (1,500 mg) tab Take 600 mg by mouth twice daily. Cholecalciferol, Vitamin D3, 1,000 unit cap Take 1 capsule by mouth once daily. TYLENOL EXTRA STRENGTH 500 MG TAB Take two(2) tablets every four(4) to six(6) hours as needed. dulaglutide (TRULICITY) 3 mg/0.5 mL pen injector Inject 3 mg subcutaneously one time a week. lisinopril 2.5 mg tablet Take 1 tablet by mouth once daily. blood sugar diagnostic (FREESTYLE LITE STRIPS) test strip Check sugars 2 times daily and as needed for signs or symptoms of low or high sugar. E11.65 Insulin: NO lancets (FREESTYLE LANCETS) 28 gauge Check sugars 2 times daily and as needed for signs or symptoms of low or high sugar. E11.65 Insulin: NO COMPOUNDED PRESCRIPTION diabetic shoes meclizine (ANTIVERT) 12.5 mg tab Take 1 tablet by mouth twice daily as needed (dizziness). (Patient not taking: Reported on 02/20/2021 ) Insulin [place], Disposable, (PEN NEEDLE) 29 gauge X 1/2 ndle USE ONE NEEDLE FOR EACH DOSE twice a day as directed omega-3 fatty acids/vitamin e(FISH OIL 1,000 MG CAP) Take one(1) tablet two(2) times daily. (Patient not taking: Take one(1) tablet two(2) times daily. ) OCUVITE LUTEIN CAP Take one(1) tablet daily. (Patient not taking: Take one(1) tablet daily.) No current facility-administered medications for this visit. ALLERGIES Allergen Reactions Morphine Vomiting Niaspan [Niacin] Other: See Comments hot flashes ACTIVE PROBLEM LIST Mixed Hyperlipidemia - 03/29/2015 Vitamin D Deficiency - 12/24/2009 Acquired Pes Planus of Both Feet - 12/20/2009 Diarrhea - 12/20/2009 Abnormal Liver Function Test - 12/20/2009 Anemia - 12/20/2009 TRIGGER FINGER, left and right ring and pinky fingers - 12/18/2005 Comment: right ring finger locks so will see Dr. Dixon (Dec 2011) Type 2 Diabetes Mellitus, Without Long-Term Current Use of Insulin ([facility]) - 08/25/2005 Generalized Osteoarthrosis, Unspecified Site Morbid Obesity With Bmi of 40.0-44.9, Adult ([facility]) Social History Tobacco Use Smoking status: Never Smokeless tobacco: Never Substance Use Topics Alcohol use: No Drug use: No Review of Systems Respiratory: Negative. Cardiovascular: Negative. OBJECTIVE BP 116/76 Pulse 94 Wt 253 lb (114.8kg) SpO2 99% Physical Exam Vitals and nursing note reviewed. Constitutional: General: She is awake. She is not in acute distress. Appearance: Normal appearance. She is well-developed and well-groomed. She is obese. She is not ill-appearing, toxic-appearing or diaphoretic. HENT: Head: Normocephalic. Right Ear: External ear normal. Left Ear: External ear normal. Nose: Nose normal. Eyes: General: Vision grossly intact. Conjunctiva/sclera: Conjunctivae normal. Pupils: Pupils are equal, round, and reactive to light. Neck: Vascular: No JVD. Trachea: Trachea normal. Cardiovascular: Rate and Rhythm: Normal rate and regular rhythm. Pulses: Normal pulses. Heart sounds: Normal heart sounds. No murmur heard. Pulmonary: Effort: Pulmonary effort is normal. No accessory muscle usage, prolonged expiration or respiratory distress. Breath sounds: Normal breath sounds. Musculoskeletal: Cervical back: Neck supple. Skin: General: Skin is warm and dry. Capillary Refill: Capillary refill takes less than 2 seconds. Neurological: General: No focal deficit present. Mental Status: She is alert and oriented to person, place, and time. Mental status is at baseline. Psychiatric: Attention and Perception: Attention and perception normal. Mood and Affect: Mood and affect normal. Speech: Speech normal. Behavior: Behavior normal. Behavior is cooperative. Thought Content: Thought content normal. Cognition and Memory: Cognition and memory normal. Judgment: Judgment normal. Diabetic Foot Exam: Feet:Shoes and socks removed, Are you having foot pain no , No deformities, ulcers, calluses, normal distal pulses, and sensitive to 10 gm monofilament ASSESSMENT/PLAN: 1. Controlled type 2 diabetes mellitus without complication, without long-term current use of insulin (HCC) - ICD9: 250.00, ICD10: E11.9 (primary diagnosis) - Control undetermined, due for labs, suspect worsening control - Continue current medications - Increase dulaglutide (Trulicity) - Counseled on healthy diet and regular exercise - Discussed need for and benefit of weight loss. BMI 47.80 kg/(m^2) - ALBUMIN/CREAT RATIO RND UR - HGB A1C - LIPID PANEL BASIC - CBC + DIFF - COMP METABOLIC PANEL 2. Morbid obesity (HCC) - ICD9: 278.01, ICD10: E66.01 Weight increasing - Behavioral intervention and - Pharmacological intervention 3. Pain of toe of right foot - ICD9: 729.5, ICD10: M79.674 Pain has resolved, she is wondering about gout. Can check uric acid level. - URIC ACID BLOOD 4. Mixed hyperlipidemia - ICD9: 272.2, ICD10: E78.2 - Barriers to control: diet adherence - Continue current medications - Counseled on healthy diet and regular exercise Portions of this note have been entered by ancillary staff. I have reviewed and when necessary edited, so that they are an adequate record of my encounter with this patient Please note that parts of this document were created using voice recognition software and therefore may contain grammatical errors. Patient verbalizes understanding of instructions from today's visit and in agreement with treatment plan. Questions answered. Agrees to call the office if questions, concerns of issues with acute symptoms not improving or if they worsen. See diagnoses and orders for additional plan(s). Allergies and medications were reviewed, list was updated, and refills given if needed. Past medical, surgical, social, and family history reviewed and updated as appropriate. Encouraged proper diet & exercise as well as compliance with taking medications. Age-appropriate health preventative measures were discussed. I spent a total of 37 minutes on the date of the service which included preparing to see the patient, [id number] patient care, completing clinical documentation, obtaining and/or reviewing separately obtained history, performing a medically appropriate examination, counseling and educating the patient/family/caregiver, ordering medications, tests, or procedures, communicating with other HCPs (not separately reported), independently interpreting results (not separately reported), communicating results to the patient/family/caregiver, and care coordination (not separately reported). Return in about 4 months (around 03/26/2023) for recheck DM, check hgba1c. CASSI Alexis documented in this encounter [facility] 10-09-2022 Miscellaneous Notes Needs labs and a visit Patient has been identified by name and date of : Yes Last office visit in this department: 02/20/2021, next appt scheduled 11/21/22 RX INSTRUCTIONS: Patient aware RX will be sent to pharmacy. No need to notify patient. Patient phones requesting refills as follows: Requested Prescriptions Pending Prescriptions Disp Refills dulaglutide (TRULICITY) 1.5 mg/0.5 mL pen injector 12 Each 3 Sig: Inject 1.5 mg subcutaneously one time a week. Please review and advise. Lucie Thomas documented in this encounter [facility] 07-31-2022 Miscellaneous Notes Called Patient, she is taking Pravastatin on daily basis, no missed doses. Patient has been identified by name and date of : Yes, Patient phones for refill(s): Requested Prescriptions Pending Prescriptions Disp Refills pravastatin (PRAVACHOL) 20 mg tablet 90 tablet 3 Sig: Take 1 tablet by mouth once daily. Date of last office visit in primary care: 02/20/2021 Appt: 11/21/2022 Last 2 Encounter Wt Readings: Date: Wt: 02/20/2021 107 kg (236 lb) 08/10/2020 103.4 kg (228 lb) Previous labs/tests for medication: Cholesterol: HDL Cholesterol (mg/dL) Date Value 02/18/2021 40 LDL Cholesterol (mg/dL) Date Value 02/18/2021 74 ALT (U/L) Date Value 02/18/2021 14 Non HDL Cholesterol, Nonfasting (mg/dL) Date Value 05/03/2018 140 Non HDL Cholesterol (mg/dL) Date Value 02/18/2021 129 Please advise. Thank you. Sepideh Beltran LPN Patient has been identified by name and date of : Yes Requested Prescriptions Pending Prescriptions Disp Refills pravastatin (PRAVACHOL) 20 mg tablet 90 tablet 3 Sig: Take 1 tablet by mouth once daily. RX INSTRUCTIONS: Patient aware RX will be sent to pharmacy. No need to notify patient. Adri Mahmood documented in this encounter [facility] 07-30-2022 Note HNO ID: [id number] Author: Cecile Herrera Service: ? Author Type: ? Type: Progress Notes Filed: 07/30/2022 2:24 PM Note Text: POPULATION HEALTH NAVIGATION OUTREACH Action/FYI: [employer] Care Gaps 07/30/22 Discuss the following due/overdue HM care gaps: ~HgBA1C ~Flu Vaccine ~Advance Directives ~Dilated Retinal Exam (due 02/05/23 or after) ~Mammogram (due 02/06/23 or after) Outreach: ~Spoke with patient who declined all scheduling. States she sees an outside eye provider and will fax over results. Patient states she will schedule mammogram closer to when it is due. Patient Identified by Name and : YES, via phone Outreach Outcome/Action Spoke to patient / parent / legal guardian: Patient declined Did you use a PCP flex slot to schedule this appointment? N/A Reason for Outreach Care Gap or Scheduling/Wellness visits Payer: Payor: [employer] MED[employer]ARE / Plan: [employer] MED[employer]ARE PPO / Product Type: PPO / Care Gap Reviewed:: Breast Cancer screening Diabetic Eye Exam HBA1C Flu Vaccine Reminder: Reminder note to check Health Maintenance for items below Health Maintenance items due: PNEUMOCOCCAL: 64+(2 - PCV) due on 12/20/2010 DTAP,TDAP,TD(2 - Td or Tdap) due on 12/19/2015 DIABETIC FOOT EXAM due on 04/20/2021 COVID-19 VACCINE(4 - Booster for Pfizer series) due on 04/29/2021 SHINGRIX VACCINE(2 of 2) due on 07/23/2021 HBA1C due on 08/18/2021 INFLUENZA(1) due on 01/30/2022 URINE ALBUMIN:CREATININE RATIO due on 02/18/2022 LDL CHOLESTEROL due on 02/18/2022 ANNUAL PCP TEAM CHRONIC DISEASE VISIT due on 02/20/2022 ADVANCE DIRECTIVE DISCUSSION Never done DEPRESSION ASSESSMENT Never done Navigation Signature: Cecile Sahni Population Health Navigator July 30, 2022 2:13 PM [facility] 07-30-2022 Note Patient Outreach (NAI TNAV) MARY VOGEL ([id number]) 1950 F Date Time Provider Department 07/30/22 CECILE SAHNI ([facility]) NETNAV During your visit today, we recorded the following information about you: Cecile Sahni Pss 07/30/2022 2:24 PM Signed POPULATION HEALTH NAVIGATION OUTREACH Action/FYI: [employer] Care Gaps 07/30/22 Discuss the following due/overdue HM care gaps: ~HgBA1C ~Flu Vaccine ~Advance Directives ~Dilated Retinal Exam (due 02/05/23 or after) ~Mammogram (due 02/06/23 or after) Outreach: ~Spoke with patient who declined all scheduling. States she sees an outside eye provider and will fax over results. Patient states she will schedule mammogram closer to when it is due. Patient Identified by Name and : YES, via phone Outreach Outcome/Action Spoke to patient / parent / legal guardian: Patient declined Did you use a PCP flex slot to schedule this appointment? N/A Reason for Outreach Care Gap or Scheduling/Wellness visits Payer: Payor: [employer] / Plan: AET MEDICARE PPO / Product Type: PPO / Care Gap Reviewed:: Breast Cancer screening Diabetic Eye Exam HBA1C Flu Vaccine Reminder: Reminder note to check Health Maintenance for items below Health Maintenance items due: PNEUMOCOCCAL: 65+(2 - PCV) due on 12/20/2010 DTAP,TDAP,TD(2 - Td or Tdap) due on 12/19/2015 DIABETIC FOOT EXAM due on 04/20/2021 COVID-19 VACCINE(4 - Booster for Pfizer series) due on 04/29/2021 SHINGRIX VACCINE(2 of 2) due on 07/23/2021 HBA1C due on 08/18/2021 INFLUENZA(1) due on 01/30/2022 URINE ALBUMIN:CREATININE RATIO due on 02/18/2022 LDL CHOLESTEROL due on 02/18/2022 ANNUAL PCP TEAM CHRONIC DISEASE VISIT due on 02/20/2022 ADVANCE DIRECTIVE DISCUSSION Never done DEPRESSION ASSESSMENT Never done Navigation Signature: Cecile Sahni Population Health Navigator July 30, 2022 2:13 PM Allergies As of Date: 07/30/2022 Noted Allergy Reaction MORPHINE 02/12/2010 11 - Vomiting NIASPAN (NIACIN) 03/19/2010 14 - Other: See Comments Comments: hot flashes Date Reviewed: 02/20/2021 Reviewed by: Liliane Forbes Ma - Fully Assessed Reason for Visit: Population Health Navigation Outreach [3910] Cmt: [employer] Care Gaps Prescriptions as of 07/30/2022 - lisinopril 2.5 mg tablet Take 1 tablet by mouth once daily. - celecoxib (CELEBREX) 200 mg capsule TAKE 1 CAPSULE DAILY NEEDED - metFORMIN (GLUCOPHAGE) 500 mg tablet Take 2 tablets by mouth twice daily with meals. As directed - dulaglutide (TRULICITY) 1.5 mg/0.5 mL pen injector Inject 1.5 mg subcutaneously one time a week. - blood sugar diagnostic (FREESTYLE LITE STRIPS) test strip Check sugars 2 times daily and as needed for signs or symptoms of low or high sugar. E11.65 Insulin: NO - lancets (FREESTYLE LANCETS) 28 gauge Check sugars 2 times daily and as needed for signs or symptoms of low or high sugar. E11.65 Insulin: NO - pravastatin (PRAVACHOL) 20 mg tablet Take 1 tablet by mouth once daily. - COMPOUNDED PRESCRIPTION diabetic shoes - calcium carbonate (CALTRATE) 600 mg calcium (1,500 mg) tab Take 600 mg by mouth twice daily. - meclizine (ANTIVERT) 12.5 mg tab Take 1 tablet by mouth twice daily as needed (dizziness). - Insulin [place], Disposable, (PEN NEEDLE) 29 gauge X 1/2 ndle USE ONE NEEDLE FOR EACH DOSE twice a day as directed - Cholecalciferol, Vitamin D3, 1,000 unit cap Take 1 capsule by mouth once daily. - omega-3 fatty acids/vitamin e(FISH OIL 1,000 MG CAP) Take one(1) tablet two(2) times daily. - TYLENOL EXTRA STRENGTH 500 MG TAB Take two(2) tablets every four(4) to six(6) hours as needed. - OCUVITE LUTEIN CAP Take one(1) tablet daily. Problem List As Of Date 07/30/2022 Noted Resolved GENERAL OSTEOARTHROSIS [M15.9] Morbid obesity with BMI of 40.0-44.9, adult (HC* Type 2 diabetes mellitus, without long-term cur*08/25/2005 TRIGGER FINGER, left and right ring and pinky f*12/18/2005 Acquired pes planus of both feet [M21.41, M21.4*12/20/2009 Diarrhea [R19.7] 12/20/2009 Abnormal Liver Function Test [R79.89] 12/20/2009 Anemia [D64.9] 12/20/2009 Vitamin D Deficiency [E55.9] 12/24/2009 Mixed hyperlipidemia [E78.2] 03/29/2015 Uncontrolled type 2 diabetes mellitus without c*07/16/2017 02/24/2019 Encounter Status:Closed by ARIANA BHARATHCECILE on 07/30/22 [facility] 07-27-2022 Miscellaneous Notes The following approved medication requests have been transmitted electronically. Requested Prescriptions Signed Prescriptions Disp Refills lisinopril 2.5 mg tablet 90 tablet 1 Sig: Take 1 tablet by mouth once daily. Authorizing Provider: KEELY GARCIA MD Patient has been identified by name and date of : Yes, Anila Marks RN Date 07/25/2022 Time 4:30 pm Patient phones for refill(s): Requested Prescriptions Pending Prescriptions Disp Refills lisinopril 2.5 mg tablet 90 tablet 0 Sig: Take 1 tablet by mouth once daily. Date of last office visit with pcp: 02/20/21 Future appt: 11/21/22 Last 2 Encounter Wt Readings: Date: Wt: 02/20/2021 107 kg (236 lb) 08/10/2020 103.4 kg (228 lb) Previous labs/tests for medication: Blood Pressure: BUN (mg/dL) Date Value 02/18/2021 10 Sodium (mmol/L) Date Value 02/18/2021 140 Last 1 Encounter BP Readings: Date: BP: 02/20/2021 118/82 Liver Function: ALT (U/L) Date Value 02/18/2021 14 AST (U/L) Date Value 02/18/2021 18 Please advise. Thank you. Anila Marks RN documented in this encounter [facility] 06-20-2022 Miscellaneous Notes Patient has been identified by name and date of : Yes, Provider Dr. Garcia Date 06/20/22 Time 11:33 am Pharmacy phones for refill(s): Requested Prescriptions Pending Prescriptions Disp Refills celecoxib (CELEBREX) 200 mg capsule [Pharmacy Med Name: CELECOXIB CAPS 200MG] 90 capsule 3 Sig: TAKE 1 CAPSULE DAILY NEEDED Date of last office visit in primary care: 02/20/22 next apt 11/21/22 Last 2 Encounter Wt Readings: Date: Wt: 02/20/2021 107 kg (236 lb) 08/10/2020 103.4 kg (228 lb) Previous labs/tests for medication: Not applicable Thank you. Sonya Martínez LPN Please advise. documented in this encounter [facility] 06-18-2022 Miscellaneous Notes Last office visit: 02/20/21 Next appointment scheduled: 11/21/22 Last labs: 02/18/21 last HGBA1C Patient has been identified by name and date of : Yes Requested Prescriptions Pending Prescriptions Disp Refills metFORMIN (GLUCOPHAGE) 500 mg tablet 360 tablet 3 Sig: Take 2 tablets by mouth twice daily with meals. As directed RX INSTRUCTIONS: Patient aware RX will be sent to pharmacy. No need to notify patient. Jyothi Mosso [employer] documented in this encounter [facility] 04-29-2022 History of Presen t illness Narrative POPULATION HEALTH NAVIGATION OUTREACH Action/FYI Spoke with patient will have labs drawn in the next couple weeks Plans on getting flu and covid booster next week . Sent AD my chart Pt identified by name and : YES, via phone Outreach Outcome/Action Spoke to patient or caregiver: No action required (information or reminder only) Did you use a PCP flex slot to schedule this appointment? N/A Reason for Outreach Care Gap or Scheduling/Wellness visits Payer: Payor: [employer] MEDICARE / Plan: AET MEDICARE PPO / Product Type: PPO / Care Gap Reviewed:: Flu vaccine Reminder: Reminder note to check Health Maintenance for items below Health Maintenance items due: PNEUMOCOCCAL: 65+(2 - PCV) due on 12/20/2010 DTAP,TDAP,TD(2 - Td or Tdap) due on 12/19/2015 DIABETIC FOOT EXAM due on 04/20/2021 COVID-19 VACCINE(4 - Booster for Pfizer series) due on 04/29/2021 ADVANCE DIRECTIVE DISCUSSION Never done DEPRESSION ASSESSMENT Never done SHINGRIX VACCINE(2 of 2) due on 07/23/2021 HBA1C due on 08/18/2021 INFLUENZA(1) due on 01/30/2022 URINE ALBUMIN:CREATININE RATIO due on 02/18/2022 LDL CHOLESTEROL due on 02/18/2022 ANNUAL PCP TEAM CHRONIC DISEASE VISIT due on 02/20/2022 Message Sent to Practice: No Navigation Signature: Echo Headley April 29, 2022 1:22 PM documented in this encounter [facility] 04-09-2022 Miscellaneous Notes Patient is scheduled for 11/21/2022 JN 04/09 1st attempt: LVM for patient to schedule appointment. BHARATH Reynoso Please help pt reschedule November's missed appt. Patient has been identified by name and date of : Yes Last office visit in this department: 02/20/2021 RX INSTRUCTIONS: Patient aware RX will be sent to pharmacy. No need to notify patient. Patient phones requesting refills as follows: Requested Prescriptions Pending Prescriptions Disp Refills celecoxib (CELEBREX) 200 mg capsule 90 capsule 3 Sig: Take 1 capsule by mouth once daily as needed. lisinopril 2.5 mg tablet 90 tablet 0 Sig: Take 1 tablet by mouth once daily. Please review and advise. Brittanie Wise Pss documented in this encounter [facility] 04-07-2022 Miscellaneous Notes PATIENT NOTIFIED OF SAME. So it looks like Shira ordered a hgba1c and urine for microalbumin for this patient, I added the other labs she had with her last visit. Please let her know labs are ordered and she can set up a lab appointment for before her follow up. Thanks. Called patient and scheduled her for October with Dr. Garcia . Patient states that she has labs done before appt. Please advise documented in this encounter [facility] 02-05-2022 Miscellaneous Notes February 05, 2022 PID: [id number] Mary Vogel [address] [place] [address] Dear Ms. Vogel, We are pleased to inform you that the results of your recent breast imaging exam on 02/05/2022 are normal. Early detection of cancer is very important. We also understand recommendations regarding breast cancer screening are controversial. Please discuss with your primary care provider which strategy is best for you and whether a mammogram is right for you. Your imaging studies and report will be kept on file at [facility] as part of your permanent medical record and are available for your continuing care. Thank you for allowing us to help in meeting your health care needs. Sincerely, Dr. Lombardi Interpreting Radiologist [facility] (Normal over 40) documented in this encounter [facility] 01-06-2022 Miscellaneous Notes Needs follow up rescheduled as noted below. The following approved medication requests have been transmitted electronically. Signed Prescriptions Disp Refills lisinopril 2.5 mg tablet 90 tablet 0 Sig: Take 1 tablet by mouth once daily. ARASELI: No Authorizing Provider: KEELY GARCIA MD Last seen pcp 02/20/21. Pt missed Morenita's follow up please call pt to reschedule. Labs are due also. Patient has been identified by name and date of : Yes Pending Prescriptions Disp Refills LISINOPRIL 2.5 MG TABLET 90 tablet 3 Sig: Take 1 tablet by mouth once daily. ARASELI: No RX INSTRUCTIONS: Patient aware RX will be sent to pharmacy. No need to notify patient. Maria Fernanda Martínez Pss documented in this encounter [facility] 08-29-2021 History of Presen t illness Narrative POPULATION HEALTH NAVIGATION OUTREACH Action/FYI: [employer] Care Gaps Discuss/Due: Advance Directives, Dilated Retinal Exam due 01/11/22 or after, Screening mammogram 01/24/22 or after Outcome: Patient declined scheduling Pt identified by name and : YES, via phone Outreach Outcome/Action Spoke to patient or caregiver: Patient declined Reason for Outreach Care Gap or Scheduling/Wellness visits Payer: Payor: [employer] MEDICARE / Plan: [employer] MEDICARE PPO / Product Type: PPO / Care Gap Reviewed:: Breast Cancer screening Diabetic Eye Exam Reminder: Reminder note to check Health Maintenance for items below Health Maintenance items due: PNEUMOVAX AGE 65 AND OVER WITH 5YR LOOKBACK(1) due on 12/20/2014 DTAP,TDAP,TD(2 - Td or Tdap) due on 12/19/2015 COVID-19 VACCINE(3 - Booster for Pfizer series) due on 01/22/2021 DIABETIC FOOT EXAM due on 04/20/2021 ADVANCE DIRECTIVE DISCUSSION Never done SHINGRIX VACCINE(2 of 2) due on 07/23/2021 HBA1C due on 08/18/2021 Message Sent to Practice: No Navigation Signature: Cecile Sahni Population Health Navigator August 29, 2021 1:58 PM documented in this encounter [facility] 08-22-2021 Miscellaneous Notes Patient has been identified by name and date of : Yes Patient phones for refill(s): Pending Prescriptions Disp Refills TRULICITY 1.5 MG/0.5 ML SUBCUTANEOUS PEN INJECTOR 12 Each 3 Sig: Inject 1.5 mg subcutaneously one time a week. ARASELI: No Date of last office visit in primary care: 02/20/2021 6 month follow-up: 09/09/2021 Last 2 Encounter Wt Readings: Date: Wt: 02/20/2021 107 kg (236 lb) 08/10/2020 103.4 kg (228 lb) Previous labs/tests for medication: Diabetes: Hemoglobin A1C (%) Date Value 02/18/2021 6.9 08/10/2020 6.9 Please advise. Thank you. Sepideh Beltran LPN Patient has been identified by name and date of : Yes Last office visit in this department: Visit date not found RX INSTRUCTIONS: Patient aware RX will be sent to pharmacy. No need to notify patient. Patient phones requesting refills as follows: Pending Prescriptions Disp Refills TRULICITY 1.5 MG/0.5 ML SUBCUTANEOUS PEN INJECTOR 12 Each 3 Sig: Inject 1.5 mg subcutaneously one time a week. ARASELI: No Please review and advise. Rui Angeles documented in this encounter [facility] documented as of this encounter (statuses as of 08/22/2021) [facility] History of Past illness Narrative* Problem Noted Date Resolved Date Uncontrolled type 2 diabetes mellitus without complication, without long-term current use of insulin 07/16/2017 02/24/2019 documented as of this encounter (statuses as of 08/29/2021) [address]15-2018 History of Past illness Narrative* Problem Noted Date Resolved Date Uncontrolled type 2 diabetes mellitus without complication, without long-term current use of insulin 07/16/2017 02/24/2019 documented as of this encounter (statuses as of 01/06/2022) [address]15-2018 History of Past illness Narrative* Problem Noted Date Resolved Date Uncontrolled type 2 diabetes mellitus without complication, without long-term current use of insulin 07/16/2017 02/24/2019 documented as of this encounter (statuses as of 02/06/2022) [address]15[address]2018 History of Past illness Narrative* Problem Noted Date Resolved Date Uncontrolled type 2 diabetes mellitus without complication, without long-term current use of insulin 07/16/2017 02/24/2019 documented as of this encounter (statuses as of 02/07/2022) [address]2018 History of Past illness Narrative* Problem Noted Date Resolved Date Uncontrolled type 2 diabetes mellitus without complication, without long-term current use of insulin 07/16/2017 02/24/2019 documented as of this encounter (statuses as of 04/07/2022) [address]2018 History of Past illness Narrative* Problem Noted Date Resolved Date Uncontrolled type 2 diabetes mellitus without complication, without long-term current use of insulin 07/16/2017 02/24/2019 documented as of this encounter (statuses as of 04/09/2022) [address]2018 History of Past illness Narrative* Problem Noted Date Resolved Date Uncontrolled type 2 diabetes mellitus without complication, without long-term current use of insulin 07/16/2017 02/24/2019 documented as of this encounter (statuses as of 04/29/2022) [address]2018 History of Past illness Narrative* Problem Noted Date Resolved Date Uncontrolled type 2 diabetes mellitus without complication, without long-term current use of insulin 07/16/2017 02/24/2019 documented as of this encounter (statuses as of 06/18/2022) [address]2018 History of Past illness Narrative* Problem Noted Date Resolved Date Uncontrolled type 2 diabetes mellitus without complication, without long-term current use of insulin 07/16/2017 02/24/2019 documented as of this encounter (statuses as of 06/20/2022) [address]2018 History of Past illness Narrative* Problem Noted Date Resolved Date Uncontrolled type 2 diabetes mellitus without complication, without long-term current use of insulin 07/16/2017 02/24/2019 documented as of this encounter (statuses as of 07/07/2022) [facility] Past [facility] Narrative* Problem Noted Date Resolved Date Uncontrolled type 2 diabetes mellitus without complication, without long-term current use of insulin 07/16/2017 02/24/2019 documented as of this encounter (statuses as of 07/29/2022) [facility] History of Past illness Narrative* Problem Noted Date Resolved Date Uncontrolled type 2 diabetes mellitus without complication, without long-term current use of insulin 07/16/2017 02/24/2019 documented as of this encounter (statuses as of 07/31/2022) [address]2018 History of Past illness Narrative* Problem Noted Date Resolved Date Uncontrolled type 2 diabetes mellitus without complication, without long-term current use of insulin 07/16/2017 02/24/2019 documented as of this encounter (statuses as of 10/09/2022) [address]2018 History of Past illness Narrative* Problem Noted Date Resolved Date Uncontrolled type 2 diabetes mellitus without complication, without long-term current use of insulin 07/16/2017 02/24/2019 documented as of this encounter (statuses as of 11/25/2022) [facility] Narrative* Problem Noted Date Diagnosed Date Resolved Date Uncontrolled type 2 diabetes mellitus without complication, without long-term current use of insulin 07/16/2017 02/24/2019 documented as of this encounter (statuses as of 12/31/2022) [address]2018 History of Past illness Narrative* Problem Noted Date Diagnosed Date Resolved Date Uncontrolled type 2 diabetes mellitus without complication, without long-term current use of insulin 07/16/2017 02/24/2019 documented as of this encounter (statuses as of 01/15/2023) [address]2018 History of Past illness Narrative* Problem Noted Date Diagnosed Date Resolved Date Uncontrolled type 2 diabetes mellitus without complication, without long-term current use of insulin 07/16/2017 02/24/2019 documented as of this encounter (statuses as of 03/03/2023) [address]2018 History of Past illness Narrative* Problem Noted Date Diagnosed Date Resolved Date Uncontrolled type 2 diabetes mellitus without complication, without long-term current use of insulin 07/16/2017 02/24/2019 documented as of this encounter (statuses as of 03/07/2023) [address]2018 History of Past illness Narrative* Problem Noted Date Diagnosed Date Resolved Date Uncontrolled type 2 diabetes mellitus without complication, without long-term current use of insulin 07/16/2017 02/24/2019 documented as of this encounter (statuses as of 03/20/2023) [address]2018 History of Past illness Narrative* Problem Noted Date Diagnosed Date Resolved Date Uncontrolled type 2 diabetes mellitus without complication, without long-term current use of insulin 07/16/2017 02/24/2019 documented as of this encounter (statuses as of 03/20/2023) [address]2018 History of Past illness Narrative* Problem Noted Date Diagnosed Date Resolved Date Uncontrolled type 2 diabetes mellitus without complication, without long-term current use of insulin 07/16/2017 02/24/2019 documented as of this encounter (statuses as of 03/20/2023) [address]2018 History of Past illness Narrative* Problem Noted Date Diagnosed Date Resolved Date Uncontrolled type 2 diabetes mellitus without complication, without long-term current use of insulin 07/16/2017 02/24/2019 Diarrhea 12/20/2009 03/25/2023 Abnormal liver function test 12/20/2009 03/25/2023 documented as of this encounter (statuses as of 04/05/2023) [address]2018 History of Past illness Narrative* Problem Noted Date Diagnosed Date Resolved Date Uncontrolled type 2 diabetes mellitus without complication, without long-term current use of insulin 07/16/2017 02/24/2019 Diarrhea 12/20/2009 03/25/2023 Abnormal liver function test 12/20/2009 03/25/2023 documented as of this encounter (statuses as of 04/16/2023) [address]2018 History of Past illness Narrative* Problem Noted Date Diagnosed Date Resolved Date Uncontrolled type 2 diabetes mellitus without complication, without long-term current use of insulin 07/16/2017 02/24/2019 Diarrhea 12/20/2009 03/25/2023 Abnormal liver function test 12/20/2009 03/25/2023 documented as of this encounter (statuses as of 04/16/2023) [facility] Past illness Narrative* Problem Noted Date Diagnosed Date Resolved Date Uncontrolled type 2 diabetes mellitus without complication, without long-term current use of insulin 07/16/2017 02/24/2019 Diarrhea 12/20/2009 03/25/2023 Abnormal liver function test 12/20/2009 03/25/2023 documented as of this encounter (statuses as of 04/20/2023) [facility] of Past illness Narrative* Problem Noted Date Diagnosed Date Resolved Date Uncontrolled type 2 diabetes mellitus without complication, without long-term current use of insulin 07/16/2017 02/24/2019 Diarrhea 12/20/2009 03/25/2023 Abnormal liver function test 12/20/2009 03/25/2023 documented as of this encounter (statuses as of 07/11/2023) [facility] note* Diagnosis Screening mammogram, encounter for- [facility] Diagnosis Encounter for screening mammogram for malignant neoplasm of breast Other screening mammogram [facility] Diagnosis Mixed hyperlipidemia- Primary Abnormal liver function test Other abnormal blood chemistry Type 2 diabetes mellitus with hyperosmolarity without coma, without long-term current use of insulin (HCC) Vitamin D deficiency Unspecified vitamin D deficiency Encounter for therapeutic drug monitoring [facility] Diagnosis Controlled type 2 diabetes mellitus without complication, without long-term current use of insulin (HCC) [facility] Diagnosis Controlled type 2 diabetes mellitus without complication, without long-term current use of insulin (HCC)- Primary Morbid obesity (HCC) Morbid obesity Pain of toe of right foot Pain in limb Mixed hyperlipidemia [facility] Diagnosis Controlled type 2 diabetes mellitus without complication, without long-term current use of insulin (HCC)- Primary Acquired pes planus of both feet Flat foot [facility] Diagnosis Encounter for screening mammogram for breast cancer- [facility] Diagnosis Abnormal mammogram of left breast- Primary documented in this encounter [facility] note* Diagnosis Controlled type 2 diabetes mellitus without complication, without long-term current use of insulin (HCC)- Primary documented in this encounter [facility] note* Diagnosis Encounter for screening mammogram for breast cancer documented in this encounter [facility] note* Diagnosis Encounter for screening for osteoporosis Special screening for osteoporosis Asymptomatic postmenopausal status documented in this encounter [facility] note* Diagnosis Abnormal mammogram of left breast documented in this encounter [facility] note* Diagnosis Elevated uric acid in blood- Primary Other abnormal blood chemistry documented in this encounter [facility] for referral (narrative)* Diagnostic Procedure Only (Routine) - Closed Specialty Diagnoses / Procedures Referred By Aliza perez Referred To Contact [facility] Diagnoses Encounter for screening mammogram for malignant neoplasm of breast Procedures JEANETTE SCREENING SCREENING MAMMOGRAPHY BI 2-VIEW BREAST INC CAD Keely Garcia MD [address] [place] [address] [facility] [address] [address] Referral ID Status Reason Start Date Expiration Date V isits Requested Visits Authorized [id number] Closed Auto-Generate d Referral 11/26/2021 12/26/2022 1 1 [facility] for referral (narrative)* Diagnostic Procedure Only (Routine) - Authorized Specialty Diagnoses / Procedures Referred By Aliza perez Referred To Contact [facility] Diagnoses Encounter for screening mammogram for breast cancer Procedures JEANETTE SCREENING W CLAY SCREENING DIGITAL BREAST TOMOSYNTHESIS BI SCREENING MAMMOGRAPHY BI 2-VIEW BREAST INC CAD Shira Kelly APRN.CNS [address] [place] [address] [facility] [address] [place] [address] Referral ID Status Reason Start Date Expiration Date Visits Requested Visits Authorized [id number] Authorized Auto-Generat ed Referral 03/05/2023 04/03/2024 [facility] Diagnostic Procedure Only (Routine) - Pending Review Specialty Diagnoses / Procedures Referred By Aliza perez Referred To Contact [facility] Diagnoses Abnormal mammogram of left breast Procedures US BREAST LTD LEFT US BREAST UNI REAL TIME WITH IMAGE LIMITED Shira Kelly APRN.CERTIFIED FORKLIFT OPERATOR [address] [place] [address] [facility] [address] [place] [address] Referral ID Status Reason Start Date Expiration Date Visits Requested Visits Authorized [id number] Pending Review Auto-Generat ed Referral 3 04/18/2024 1 1 * Diagnostic Procedure Only (Routine) - Pending Review Specialty Diagnoses / Procedures Referred By Aliza perez Referred To Contact [facility] Diagnoses Abnormal mammogram of left breast Procedures JEANETTE DIAGNOSTIC LEFT DIAGNOSTIC MAMMOGRAPHY COMPUTER-AIDED DETCJ UNI Shira Kelly APRN.CERTIFIED FORKLIFT OPERATOR [address] [place] [address] [facility] [address] [place] [address] Referral ID Status Reason Start Date Expiration Date Visits Requested Visits Authorized [id number] Pending Review Auto-Generat ed Referral 3 04/18/2024 1 1 [facility] for referral (narrative)* Diagnostic Procedure Only (Routine) - Closed Specialty Diagnoses / Procedures Referred By Aliza perez Referred To Contact [facility] Diagnoses Encounter for screening mammogram for breast cancer Procedures JEANETTE SCREENING W CLAY SCREENING DIGITAL BREAST TOMOSYNTHESIS BI SCREENING MAMMOGRAPHY BI 2-VIEW BREAST INC CAD Shira Kelly APRN.CERTIFIED FORKLIFT OPERATOR [address] [place] [address] [facility] [address] [place] [address] Referral ID Status Reason Start Date Expiration Date V isits Requested Visits Authorized [id number] Closed Auto-Generate d Referral 03/05/2023 04/03/2024 1 1 [facility] for visit Narrative* Diagnostic Procedure Only (Routine) - Closed Specialty Diagnoses / Procedures Referred By Aliza perez Referred To Contact [facility] Diagnoses Encounter for screening mammogram for malignant neoplasm of breast Procedures JEANETTE SCREENING SCREENING MAMMOGRAPHY BI 2-VIEW BREAST INC Keely De Santiago MD [address] [place] [address] [facility] [address] [place] [address] Referral ID Status Reason Start Date Expiration Date V isits Requested Visits Authorized [id number] Closed Auto-Generate d Referral 11/26/2021 12/26/2022 1 1 [facility] for visit Narrative* Diagnostic Procedure Only (Routine) - Closed Specialty Diagnoses / Procedures Referred By Aliza perez Referred To Contact [facility] Diagnoses Encounter for screening mammogram for breast cancer Procedures JEANETTE SCREENING W CLAY SCREENING DIGITAL BREAST TOMOSYNTHESIS BI SCREENING MAMMOGRAPHY BI 2-VIEW BREAST INC Shira Sandoval APRN.CERTIFIED FORKLIFT OPERATOR [address] [place] [address] [facility] [address] [place] [address] Referral ID Status Reason Start Date Expiration Date V isits Requested Visits Authorized [id number] Closed Auto-Generate d Referral 03/05/2023 04/03/2024 1 1 [facility] for visit Narrative* Diagnostic Procedure Only (Routine) - Closed Specialty Diagnoses / Procedures Referred By Aliza perez Referred To Contact [facility] Diagnoses Abnormal mammogram of left breast Procedures JEANETTE DIAGNOSTIC LEFT DIAGNOSTIC MAMMOGRAPHY COMPUTER-AIDED DETCJ Shira Bonilla APRN.CERTIFIED FORKLIFT OPERATOR [address] [place] [address] [facility] [address] [place] [address] Referral ID Status Reason Start Date Expiration Date V isits Requested Visits Authorized [id number] Closed Auto-Generate d Referral 03/20/2023 04/18/2024 1 1 [facility] Summary Purpose Family History No Family History Records Found Advance Directives No Advanced Directives Records Found Additional Source Comments Source Comments (unrecognize d section and content) In the event this informatio n is protected by the Federal Confidentiality of Alcohol and Drug Abuse Patient Records regulations: The Federal rules restrict any use of the information to criminally investigate or prosecute any alcohol or drug abuse patient.[facility] HospitalIn the event this information is protected by the Federal Confidentiality of Alcohol and Drug Abuse Patient Records regulations: The Federal rules restrict any use of the information to criminally investigate or prosecute any alcohol or drug abuse patient.[facility] HospitalIn the event this information is protected by the Federal Confidentiality of Alcohol and Drug Abuse Patient Records regulations: The Federal rules restrict any use of the information to criminally investigate or prosecute any alcohol or drug abuse patient.[facility] HospitalIn the event this information is protected by the Federal Confidentiality of Alcohol and Drug Abuse Patient Records regulations: The Federal rules restrict any use of the information to criminally investigate or prosecute any alcohol or drug abuse patient.[facility] HospitalIn the event this information is protected by the Federal Confidentiality of Alcohol and Drug Abuse Patient Records regulations: The Federal rules restrict any use of the information to criminally investigate or prosecute any alcohol or drug abuse patient.[facility] HospitalIn the event this information is protected by the Federal Confidentiality of Alcohol and Drug Abuse Patient Records regulations: The Federal rules restrict any use of the information to criminally investigate or prosecute any alcohol or drug abuse patient.[facility] HospitalIn the event this information is protected by the Federal Confidentiality of Alcohol and Drug Abuse Patient Records regulations: The Federal rules restrict any use of the information to criminally investigate or prosecute any alcohol or drug abuse patient.[facility] HospitalIn the event this information is protected by the Federal Confidentiality of Alcohol and Drug Abuse Patient Records regulations: The Federal rules restrict any use of the information to criminally investigate or prosecute any alcohol or drug abuse patient.[facility] HospitalIn the event this information is protected by the Federal Confidentiality of Alcohol and Drug Abuse Patient Records regulations: The Federal rules restrict any use of the information to criminally investigate or prosecute any alcohol or drug abuse patient.[facility] HospitalIn the event this information is protected by the Federal Confidentiality of Alcohol and Drug Abuse Patient Records regulations: The Federal rules restrict any use of the information to criminally investigate or prosecute any alcohol or drug abuse patient.[facility] HospitalIn the event this information is protected by the Federal Confidentiality of Alcohol and Drug Abuse Patient Records regulations: The Federal rules restrict any use of the information to criminally investigate or prosecute any alcohol or drug abuse patient.[facility] HospitalIn the event this information is protected by the Federal Confidentiality of Alcohol and Drug Abuse Patient Records regulations: The Federal rules restrict any use of the information to criminally investigate or prosecute any alcohol or drug abuse patient.[facility] HospitalIn the event this information is protected by the Federal Confidentiality of Alcohol and Drug Abuse Patient Records regulations: The Federal rules restrict any use of the information to criminally investigate or prosecute any alcohol or drug abuse patient.[facility] HospitalIn the event this information is protected by the Federal Confidentiality of Alcohol and Drug Abuse Patient Records regulations: The Federal rules restrict any use of the information to criminally investigate or prosecute any alcohol or drug abuse patient.[facility] HospitalIn the event this information is protected by the Federal Confidentiality of Alcohol and Drug Abuse Patient Records regulations: The Federal rules restrict any use of the information to criminally investigate or prosecute any alcohol or drug abuse patient.[facility] HospitalIn the event this information is protected by the Federal Confidentiality of Alcohol and Drug Abuse Patient Records regulations: The Federal rules restrict any use of the information to criminally investigate or prosecute any alcohol or drug abuse patient.[facility] HospitalIn the event this information is protected by the Federal Confidentiality of Alcohol and Drug Abuse Patient Records regulations: The Federal rules restrict any use of the information to criminally investigate or prosecute any alcohol or drug abuse patient.[facility] HospitalIn the event this information is protected by the Federal Confidentiality of Alcohol and Drug Abuse Patient Records regulations: The Federal rules restrict any use of the information to criminally investigate or prosecute any alcohol or drug abuse patient.[facility] HospitalIn the event this information is protected by the Federal Confidentiality of Alcohol and Drug Abuse Patient Records regulations: The Federal rules restrict any use of the information to criminally investigate or prosecute any alcohol or drug abuse patient.[facility] HospitalIn the event this information is protected by the Federal Confidentiality of Alcohol and Drug Abuse Patient Records regulations: The Federal rules restrict any use of the information to criminally investigate or prosecute any alcohol or drug abuse patient.[facility] HospitalIn the event this information is protected by the Federal Confidentiality of Alcohol and Drug Abuse Patient Records regulations: The Federal rules restrict any use of the information to criminally investigate or prosecute any alcohol or drug abuse patient.[facility] HospitalIn the event this information is protected by the Federal Confidentiality of Alcohol and Drug Abuse Patient Records regulations: The Federal rules restrict any use of the information to criminally investigate or prosecute any alcohol or drug abuse patient.[facility] HospitalIn the event this information is protected by the Federal Confidentiality of Alcohol and Drug Abuse Patient Records regulations: The Federal rules restrict any use of the information to criminally investigate or prosecute any alcohol or drug abuse patient.[facility] HospitalIn the event this information is protected by the Federal Confidentiality of Alcohol and Drug Abuse Patient Records regulations: The Federal rules restrict any use of the information to criminally investigate or prosecute any alcohol or drug abuse patient.[facility] HospitalIn the event this information is protected by the Federal Confidentiality of Alcohol and Drug Abuse Patient Records regulations: The Federal rules restrict any use of the information to criminally investigate or prosecute any alcohol or drug abuse patient.[facility] HospitalIn the event this information is protected by the Federal Confidentiality of Alcohol and Drug Abuse Patient Records regulations: The Federal rules restrict any use of the information to criminally investigate or prosecute any alcohol or drug abuse patient.[facility] HospitalIn the event this information is protected by the Federal Confidentiality of Alcohol and Drug Abuse Patient Records regulations: The Federal rules restrict any use of the information to criminally investigate or prosecute any alcohol or drug abuse patient.[facility] Reason for Visit (unrecogniz ed section and content) Reason Onset Date Comments Population Health Navigation Outreach 08/29/2021 [employer] Care Gaps Reason Comments Prescription Refills Reason Comments Orders Reason Onset Date Comments Refill Request 03/28/2022 Reason Onset Date Comments Population Health Navigation Outreach 04/29/2022 [employer] care gap Reason Comments Refill Request Reason Onset Date Comments Refill Request 07/25/2022 Reason Onset Date Comments Refill Request 07/31/2022 Reason Comments Weight Problem lost about 1 1/2 years ago and has been eating more than normal. Feels like depression is good and not causing the over eating. Diabetes follow up am sugars are higher than -398 prior to over eating was her normal average blood [id number] since passing of Reason Onset Date Comments Refill Request 01/14/2023 Reason Comments Orders mammogram Reason Comments Mammogram Result Call Back Reason Comments Results Reason Onset Date Comments Population Health Navigation Outreach 07/11/2023 [employer] care gaps Care Teams (unrecognized sec tion and content) Delivery Tech Relationship Specialty Start Date End Date Keely Garcia MD [address] [place] [address] PCP - General 03/22/02 [facility] [address] [place] [address] Pharmacist Pharmacy 06/03/18 Teena (Pharmacist)Addie [address] [place] [address] Pharmacist Pharmacy 07/11/18 Delivery Tech Relationship Specialty Start Date End Date Keely Garcia MD [address] [place] [address] PCP - General 03/22/02 Jaclyn Calabrese [facility] [address] [place] [address] Pharmacist Pharmacy 06/03/18 Teena (Pharmacist)Addie [address] [place] [address] Pharmacist Pharmacy 07/11/18 Delivery Tech Relationship Specialty Start Date End Date Keely Garcia MD [address] [facility] [place] [address] PCP - General 03/22/02 Jaclyn Calabrese, [facility] [address] [facility] [place] [address] Pharmacist Pharmacy 06/03/18 Teena (Pharmacist), Addie [address] [place] [address] Pharmacist Pharmacy 07/11/18 Delivery Tech Relationship Specialty Start Date End Date Keely Garcia MD [address] [facility] [place] [address] PCP - General 03/22/02 Jaclyn Calabrese, [facility]ly [facility] [address] [facility] [place] [address] Pharmacist Pharmacy 06/03/18 Teena (Pharmacist), Addie [address] [place] [address] Pharmacist Pharmacy 07/11/18 Delivery Tech Relationship Specialty Start Date End Date Keely Garcia MD [address] [facility] [place] [address] PCP - General 03/22/02 Jaclyn Calabrese, [facility] [address] [facility] [place] [address] Pharmacist Pharmacy 06/03/18 Teena (Pharmacist), Addie [address] [place] [address] Pharmacist Pharmacy 07/11/18 Delivery Tech Relationship Specialty Start Date End Date Keely Garcia MD [address] [facility] [place] [address] PCP - General 03/22/02 Jaclyn Calabrese, [facility] [address] [facility] [place] [address] Pharmacist Pharmacy 06/03/18 Teena (Pharmacist), Addie [address] [place] [address] Pharmacist Pharmacy 07/11/18 Delivery Tech Relationship Specialty Start Date End Date Keely Garcia MD [address] [facility] [place] [address] PCP - General 03/22/02 Jaclyn Calabrese, [facility] [address] [facility] [place] [address] Pharmacist Pharmacy 06/03/18 Teena (Pharmacist), Addie [address] [place] [address] Pharmacist Pharmacy 07/11/18 Delivery Tech Relationship Specialty Start Date End Date Keely Garcia MD [address] [facility] [place] [address] PCP - General 03/22/02 Jaclyn Calabrese, [facility] [address] [facility] [place] [address] Pharmacist Pharmacy 06/03/18 Teena (Pharmacist), Addie [address] [place] [address] Pharmacist Pharmacy 07/11/18 Delivery Tech Relationship Specialty Start Date End Date Keely Garcia MD [address] [facility] [place] [address] PCP - General 03/22/02 Jaclyn Calabrese, [facility] [address] [facility] [place] [address] Pharmacist Pharmacy 06/03/18 Teena (Pharmacist), Addie [address] [place] [address] Pharmacist Pharmacy 07/11/18 Delivery Tech Relationship Specialty Start Date End Date Keely Garcia MD [address] [facility] [place] [address] PCP - General 03/22/02 Jaclyn Calabrese, [facility] [address] [facility] [place] [address] Pharmacist Pharmacy 06/03/18 Teena (Pharmacist), Addie [address] [place] [address] Pharmacist Pharmacy 07/11/18 Delivery Tech Relationship Specialty Start Date End Date Keely Garcia MD [address] [facility] [place] [address] PCP - General 03/22/02 BharatiJaclyn shannon, [facility] [address] [facility] [place] [address] Pharmacist Pharmacy 06/03/18 Teena (Pharmacist), Addie [address] [place] [address] Pharmacist Pharmacy 07/11/18 Delivery Tech Relationship Specialty Start Date End Date Keely Garcia MD [address] [facility] [place] [address] PCP - General 03/22/02 McintireJaclyn shannon, [facility] [address] [facility] [place] [address] Pharmacist Pharmacy 06/03/18 Teena (Pharmacist), Addie [address] [place] [address] Pharmacist Pharmacy 07/11/18 Delivery Tech Relationship Specialty Start Date End Date Keely Garcia MD [address] [facility] [place] [address] PCP - General 03/22/02 McintireJaclyn, [facility] [address] [facility] [place] [address] Pharmacist Pharmacy 06/03/18 Teena (Pharmacist), Addie [address] [place] [address] Pharmacist Pharmacy 07/11/18 Delivery Tech Relationship Specialty Start Date End Date Keely Garcia MD [address] [facility] [place] [address] PCP - General 03/22/02 Jaclyn Calabrese, [facility] [address] [facility] [place] [address] Pharmacist Pharmacy 06/03/18 Teena (Pharmacist), Addie [address] [place] [address] Pharmacist Pharmacy 07/11/18 Delivery Tech Relationship Specialty Start Date End Date Keely Garcia MD [address] [facility] [place] [address] PCP - General 03/22/02 Jaclyn Calabrese, [facility] [address] [facility] [place] [address] Pharmacist Pharmacy 06/03/18 Teena (Pharmacist), Addie [address] [place] [address] Pharmacist Pharmacy 07/11/18 Delivery Tech Relationship Specialty Start Date End Date Keely Garcia MD [address] [facility] [place] [address] PCP - General 03/22/02 Jaclyn Calabrese, [facility] [address] [facility] [place] [address] Pharmacist Pharmacy 06/03/18 Teena (Pharmacist), Addie [address] [place] [address] Pharmacist Pharmacy 07/11/18 Delivery Tech Relationship Specialty Start Date End Date Keely Garcia MD [address] [facility] [place] [address] PCP - General 03/22/02 Jaclyn Calabrese, [facility] [address] [facility] [place] [address] Pharmacist Pharmacy 06/03/18 Teena (Pharmacist), Addie [address] [place] [address] Pharmacist Pharmacy 07/11/18 Delivery Tech Relationship Specialty Start Date End Date Keely Garcia MD [address] [place] [address] PCP - General 03/22/02 [facility] [address] [facility] [place] [address] Pharmacist Pharmacy 06/03/18 Teena (Pharmacist), Addie [address] [place] [address] Pharmacist Pharmacy 07/11/18 Delivery Tech Relationship Specialty Start Date End Date Keely Garcia MD [address] [facility] [place] [address] PCP - General 03/22/02 [facility] [address] [facility] [place] [address] Pharmacist Pharmacy 06/03/18 Teena (Pharmacist), Addie [address] [place] [address] Pharmacist Pharmacy 07/11/18 INFORMATION SOURCE (unrecogn ized section and content) FOR RECORDS PERTAINING TO PATIENTS WHO ARE OR HAVE BEEN ENROLLED IN A CHEMICAL DEPENDENCY/SUBSTANCEABUSE PROGRAM, SOME INFORMATION MAY BE OMITTED. This clinical summary was aggregated from multiple sources. Caution should be exercised in using it in the provision of clinical care. This summary normalizes information from multiple sources, and as a consequence, information in this document may materially change the coding, format and clinical context of patient data. In addition, data may be omitted in some cases. CLINICAL DECISIONS SHOULD BE BASED ON THE PRIMARY CLINICAL RECORDS. [facility]. provides no warranty or guarantee of the accuracy or completeness of information in this document.
[2023-08-16 21:26] VITALS: BP 132/81; PULSE 81; RESP 16; TEMP 36.7; O2SAT 99
== END 2023-08-16 21:30 | disposition home or self-care (01) ==
PROVIDERS: Emergency Provider Student in an Organized Health Care Education/Training Program; PCP Internal Medicine; Visit Provider Student in an Organized Health Care Education/Training Program
DX: M25.552 Pain in left hip (principal); S80.02XA Contusion of left knee, initial encounter; W10.9XXA Fall (on) (from) unspecified stairs and steps, initial encounter
CPT/HCPCS: 73502; 73564; 99282

== ENCOUNTER 2024-02-12 19:44 | Inpatient (IN) | payer MEDICARE, SELFPAY ==
[2024-02-12] VITALS (13 sets, daily range): BP systolic 139–173; BP diastolic 59–131; PULSE 52–138; RESP 16–25; TEMP 36.6–36.7; O2SAT 93–99; BMI 42.0; BMI 42.1
--- NOTE | 2024-02-12 20:25 | RAD_ITS ---
INDICATION: Dyspnea EXAMINATION/TECHNIQUE: X-RAY - XR Chest 1 View COMPARISON: No previous relevant examinations available for comparison.. FINDINGS: LIFE-SUPPORT AND LINES: 1. None HEART AND VESSELS: The cardiac silhouette, pulmonary vasculature have normal appearance. No evidence of congestive failure. LUNGS AND PLEURAL SPACES: Lungs are clear. No focal infiltrate, consolidation or effusions. No evidence of pneumothorax. There is shallow inspiration crowding of bronchovascular markings. MEDIASTINUM AND HILAR REGIONS: No masses adenopathy noted. No areas of calcification. Visualized upper airway is normal in position. BONY ELEMENTS: Mild degenerative changes involving both shoulders. No acute bony changes. RAD/Chest 1 View (Portable) IMPRESSION: 1. Shallow inspiration crowding of bronchovascular markings. 2. No evidence of acute cardiopulmonary process. Electronically Signed: Josiah Braxton MD at 20:35 EDT ,
[2024-02-12 20:35] LABS: Absolute Lymphocyte Count 2.05 X10^3/uL (0.83-4.51); Absolute Neutrophil Count 12.4 X10^3/uL (2.0-7.7); Basophil# 0.06 X10^3/uL; Basophil% 0.4 % (0-1); Eosinophil# 0.02 X10^3/uL; Eosinophils% 0.1 % (0-5); Hematocrit 42.5 % (37-47); Hemoglobin 13.3 g/dL (12.0-15.0); Lymphocyte # 2.05 X10^3/ul (0.83-4.51); Lymphocyte % 13.1 % (19-41); Mean Corp Hgb Conc 31.3 g/dL (32-36); Mean Corpuscular Hgb 27.7 pg (27.0-32.0); Mean Corpuscular Volume 88.4 fL (81-99); Mean Platelet Vol. 10.1 fl (6.2-12.0); Monocyte# 0.98 X10^3/uL; Monocyte% 6.3 % (0-10); NRBC Flagged by Analyzer 0 % (0-5); Neutrophil # 12.41 X10^3/uL (2.7-7.7); Neutrophil % 79.7 % (47-70); Platelet Count 307 K/mm3 (150-450); RBC Distribution Width CV 13.5 % (11.6-14.6); RBC Distribution Width SD 43.9 fl (35.1-43.9); Red Blood Count 4.81 M/mm3 (4.2-5.4); White Blood Count 15.6 K/mm3 (4.4-11.0)
[2024-02-12] MEDS: Diltiazem 125 MG in Dextrose 5%-Water (100mL Bag) 100 ML IV (20:36)
[2024-02-12] MEDS: dilTIAZem 25 MG/5 ML Vial 20 MG IV BOLUS (20:37)
[2024-02-12 20:48] LABS: Prothrombin Time (Protime)PT. 13.6 SECONDS (11.7-14.9)
[2024-02-12 20:56] LABS: BNP,B-Type NATRIURETIC PEPTIDE 170.6 pg/mL (0-100)
[2024-02-12 21:01] LABS: Anion Gap 13 (5-15); BUN 10 mg/dL (7-18); BUN/Creat Ratio 9.9 RATIO (10-20); Calcium,Total 9.5 mg/dL (8.5-10.1); Chloride 105 mmol/L (98-107); Creatinine, Serum 1.01 mg/dL (0.55-1.02); EST Glomerular Filtration Rate 57 mL/min (>60); Est Glom Filt Rate - Afr Amer 69 mL/min (>60); Estimated Creatinine Clearance 54.55 ml/min; Glucose 281 mg/dL (74-106); Potassium 4.2 mmol/L (3.5-5.1); Sodium Level 137 mmol/L (136-145); Troponin-I HS (w/2H Reflex) 1889 pg/mL (3.0-54.0)
[2024-02-12 21:02] LABS: D-Dimer Quantitative (DVT/PE) 0.56 FEU/ug/m (0.27-0.49)
--- NOTE | 2024-02-12 21:29 | ED.VIS.DYS ---
HPI History of Present Illness Chief Complaint: Shortness of Breath Detail of Chief Complaint: Shortness of breath, chest discomfort Informant: patient Onset/Context/Timing Onset: Days Timing: Intermittent Quality: Positive for Orthopnea (Today) Current Severity: Mild Maximum Severity: Moderate Associated Symptoms Negative for cough, rhinorrhea, post nasal drip, ear pain, fever, sore throat, subjective, chills or sweats Chest Pain: Positive for Intermittent Narrative Narrative: Patient 74-year-old woman.She has a history of osteoarthritis of her knee and hip. She was seen July of this year for pain due to the osteoarthritis involving the left knee. She has had intermittent chest discomfort. Today she was at the [employer] became short of breath and diaphoretic. This lasted about 30 minutes. She has no known history of hypertension on no antihypertensive meds. She is a non-smoker. She admits to orthopnea starting this afternoon otherwise negative. She has no history of coronary disease. She has no history of congestive heart failure. She has no history of irregular heartbeat. She has no history of PE or DVT. She has no risk factors for PE or DVT. PE Risk Factors: Negative for Cancer, OCP + Smoking + > 35, Prior DVT or PE, Recent immobilization, Recent surgery or Recent travel Prior similar symptoms: No Recent Illness/Hospitalization: No PFSH PFSH Home Medications ?Medication ?Instructions ?Recorded ?Last Taken ?Type allopurinol 100 mg tablet 100 mg PO DAILY 02/12/24 Unknown History blood sugar diagnostic (FreeStyle 02/12/24 Unknown History Lite Strips) celecoxib 200 mg capsule 200 mg PO DAILY 02/12/24 Unknown History dulaglutide 3 mg/0.5 mL mg subcut 02/12/24 Unknown History subcutaneous pen injector (Trulicity) lancets 28 gauge (FreeStyle 02/12/24 Unknown History Lancets) lisinopril 2.5 mg tablet 2.5 mg PO DAILY 02/12/24 Unknown History metformin 500 mg tablet 1,000 mg PO BID 02/12/24 Unknown History pravastatin 20 mg tablet 20 mg PO DAILY 02/12/24 Unknown History semaglutide 0.25 mg or 0.5 mg (2 0.5 mg subcut QWEEK 02/12/24 Unknown History mg/3 mL) subcutaneous pen injector (Ozempic) Allergy/AdvReac Type Severity Reaction Status Date / Time niacin AdvReac Intermediate HOT Verified 02/12/24 19:47 morphine AdvReac Mild Vomiting Verified 02/12/24 19:47 Social History Smoking Status: Never smoker ROS ROS ED Constitutional Constitutional ED: Denies chills, fever(s) or sweats Eyes Eyes: Denies blurry vision or change in vision ENT ENT ED: Denies ear pain, rhinorrhea or sore throat Cardiovascular Cardiovascular: Reports chest pain and orthopnea; Denies palpitations, paroxysmal nocturnal dyspnea or racing heartbeat Respiratory/Chest Respiratory/Chest: Reports dyspnea, dyspnea on exertion and orthopnea; Denies cough or paroxysmal nocturnal dyspnea Gastrointestinal Gastrointestinal: Denies abdominal pain, nausea or vomiting Genitourinary Genitourinary ED: Denies dysuria, hematuria or urinary frequency Musculoskeletal Musculoskeletal: Denies arthralgias or myalgias Integumentary Denies abscess or rash Neurologic Neurologic: Denies headache(s) or weakness Psychiatric Psychiatric: Reports anxiety Endocrine Endocrinology: Denies cold intolerance or heat intolerance Hematologic/Lymphatic Hematologic/Lymphatic: Denies easy bleeding or easy bruising EXAM Physical Exam Const Vital Signs: 02/12/24 19:45 02/12/24 20:36 02/12/24 20:44 Temperature 97.8 F Temperature Source Temporal Pulse Rate 52 L 138 H 121 H Respiratory Rate 18 23 H 16 Blood Pressure 168/85 H 158/118 H 173/131 H Blood Pressure Mean 112 131 145 Pulse Ox 96 96 Oxygen Delivery Method Room Air 02/12/24 21:00 Temperature Temperature Source Pulse Rate 133 H Respiratory Rate 18 Blood Pressure 153/100 H Blood Pressure Mean 117 Pulse Ox 99 Oxygen Delivery Method Room Air Positive well nourished, well developed and obese General Appearance ED: well developed Nutritional Appearance: obese HEENT Reports moist mucous membranes atraumatic; Negative for tenderness Eyes PERRL and EOMs intact bilaterally General Eye ED: Negative for pale conjunctiva or scleral icterus Neck no lymphadenopathy, supple, no meningeal signs and no JVD Resp normal respiratory effort and clear to auscultation bilaterally Resp Narrative: Patient is tachypneic. Cardio S1 normal heart sound and no murmurs Rate: tachycardic Rhythm: abnormal rhythm irregularly irregular GI non-tender, non-distended and no masses GI Narrative: No palpable pulsatile mass. No abdominal bruit. Auscultation: normoactive bowel sounds Palpation: soft Back/Spine normal to inspection Extremity normal to inspection Neuro oriented x3 and CN's II-XII intact bilaterally Sensorium / Orientation: alert Psych mental status grossly normal Skin no wounds and skin turgor normal Skin Narrative: Patient is slightly diaphoretic. She is also slightly pale Lesions: no lesions Rashes: no rashes MDM MDM MDM Narrative Medical decision making narrative: Frontal diagnosis is atrial fibrillation due to hypertension, valvular heart disease, pulmonary embolus since she is tachypneic and myocardial ischemia. Workup was undertaken. This included CBC, electrolyte panel, troponin BNP and D-dimer. Lab Data Attestation: I reviewed the patient's lab results. Lab results narrative: White count is elevated most likely reactive to the GA. D-dimer is normal once corrected for age. CO2 is 19 with a normal anion gap. BUN and creatinine are normal. Troponin is 1889. Glucose is elevated to 81 with a normal anion gap. Do not believe she is in DKA. BNP is slightly elevated 170.6. Labs: Laboratory Results - last 24 hr 02/12/24 20:21 WBC 15.6 H RBC 4.81 Hgb 13.3 Hct 42.5 MCV 88.4 MCH 27.7 MCHC 31.3 L RDW Std Deviation 43.9 RDW Coeff of Renae 13.5 Plt Count 307 MPV 10.1 Immature Gran % (Auto) 0.400 Neut % (Auto) 79.7 H Lymph % (Auto) 13.1 L [place] % (Auto) 6.3 Eos % (Auto) 0.1 Baso % (Auto) 0.4 Absolute Neuts (auto) 12.4 H Absolute Lymphs (auto) 2.05 Nucleated RBC % 0 PT 13.6 INR 1.0 APTT 25.0 D-Dimer Quant (PE/DVT) 0.56 H* Sodium 137 Potassium 4.2 Chloride 105 Carbon Dioxide 19.0 L Anion Gap 13 BUN 10 Creatinine 1.01 Estim Creat Clear Calc 54.55 Est GFR (MDRD) Af Amer 69 Est GFR (MDRD) Non-Af 57 L BUN/Creatinine Ratio 9.9 L Glucose 281 H Calcium 9.5 Troponin I High Sens 1889 H* B-Natriuretic Peptide 170.6 H Radiography Chest X-Ray - ED: 1 View, Read by ED Physician (See Rachel is less than ideal due to limited inspiratory volume.), Heart, Lungs, Mediastinum, Bony Structures, No Acute Disease and Chronic Changes Diagnostic Testing: Clinical Impression(s) from Imaging Studies Chest X-Ray 02/12/24 20:25 IMPRESSION: 1. Shallow inspiration crowding of bronchovascular markings. 2. No evidence of acute cardiopulmonary process. Electronically Signed: Josiah Braxton MD at 20:35 EDT , EKG Initial EKG: Attestation: I personally reviewed and interpreted this EKG as follows: Interpretation: Atrial Fibrillation (Rate is 146. Patient has nonseptic ST-T wave changes. There is slight ST elevation in lead III. There is nonseptic changes laterally. There appears to be ischemic changes but this is not diagnostic of STEMI. This may be due to repolarization changes because of the A-fib.) Treatment and Re-Evaluation :: Patient was treated with IV Cardizem and IV Cardizem drip. After discussion with Dr. Delgado Moe test and research reactor operator he recommended metoprolol tart Gutierrez 50 mg twice daily. She received her first dose in the emergency department. He agreed with anticoagulation. He will see patient in the morning. Hospitalist is not paged for admission. Critical Care Time Critical Care Time: Yes Critical care time (excluding procedures): 30-74 minutes (32), Including time spent: (History, physical, documentation, interpretation of laboratory results initiation of therapy for non-ST elevation GA), Discussing w/Consultants (Hospitalist and test and research reactor operator) and Arranging Admission or Transfer Discharge Plan Dx/Rx/DC Orders Clinical Impression: Non-ST elevation GA (NSTEMI), New onset a-fib, Elevated blood pressure reading, Hyperglycemia Disposition Disposition: Acute Care [facility]
[2024-02-12] MEDS: Heparin Injection (Vial) 5,000 UNIT/ML VIAL 4000 UNIT IV (21:46)
[2024-02-12] MEDS: HEPARIN/D5w 25,000 UNITS 25,000 UNITS/250 ML IV.SOLN. 10 UNITS CONT INF (21:46)
--- NOTE | 2024-02-12 21:58 | HP.PCM.HOS_ITS ---
[facility] - General General Date of Admission: 02/12/24 Date of Service: 02/12/24 Chief Complaint: Chest Pain, SOB and Diaphoresis. HPI Narrative MARY GUIDRY, is a 74 F with a past medical history of essential hypertension, morbid obesity; with BMI of 42,1 this admission, DM-2; of unknown control on Metformin, Trulicity and Ozempic, listed allergy to Morphine (vomiting), gout and OA; of the Left knee and hip who presents to [facility] ER complaining of chest pain, SOB and diaphoresis. Ms. Guidry reports her symptoms began a few hours prior to admission with chest pain that began while she was at the [employer] earlier today with pain that was substernal, pressure-like, [id number] and intermittent with initial pain episode lasting ~30 minutes with nothing making the pain better or but she did notice worsening SOB when laying down. She also admits to associated diaphoresis and palpitations. She denies a personal history of CAD, CHF or cardiac arrhythmia. There is no report of fever, chills, nausea, vomiting, diarrhea, constipation or abdominal pain. In the ER she was noted to have a NSTEMI; evidenced by highly elevated initial troponin of 1,189 pg/mL present on admission complicated by EKG evidence of New-onset Atrial Fibrillation with RVR compounded by Morbid Obesity; with BMI of 42.1 this admission along with laboratory evidence of DM-2; uncontrolled with hyperglycemia of 281 mg/dL present on admission and moderate Leukocytosis of 15.6K present on admission that was thought to be due to acute stress response and she was then admitted to the PCU for ongoing care for a stay that is expected to extend beyond 2 midnights. [facility] Home Medications ?Medication ?Instructions ?Recorded ?Last Taken ?Type allopurinol 100 mg tablet 100 mg PO DAILY 02/12/24 Unknown History blood sugar diagnostic (FreeStyle 02/12/24 Unknown History Lite Strips) celecoxib 200 mg capsule 200 mg PO DAILY 02/12/24 Unknown History dulaglutide 3 mg/0.5 mL mg subcut 02/12/24 Unknown History subcutaneous pen injector (Trulicity) lancets 28 gauge (FreeStyle 02/12/24 Unknown History Lancets) lisinopril 2.5 mg tablet 2.5 mg PO DAILY 09/13/24 Unknown History metformin 500 mg tablet 1,000 mg PO BID 02/12/24 Unknown History pravastatin 20 mg tablet 20 mg PO DAILY 02/12/24 Unknown History semaglutide 0.25 mg or 0.5 mg (2 0.5 mg subcut QWEEK 02/12/24 Unknown History mg/3 mL) subcutaneous pen injector (Ozempic) Allergy/AdvReac Type Severity Reaction Status Date / Time niacin AdvReac Intermediate HOT Verified 02/12/24 19:47 morphine AdvReac Mild Vomiting Verified 02/12/24 19:47 Social History Smoking Status: Never smoker ROS ROS Narrative Review of Systems: Constitutional: Patient denies fever or chills. Eyes: Patient denies changes in vision or discharge from eyes. ENT: Patient denies runny nose, sore throat or ear pain. Resp: Patient admits to SOB and KELLY but she denies cough. CV: Patient admits to chest pain and orthopnea but she denies palpitations or heart racing. GI: Patient denies nausea, vomiting, abdominal pain or diarrhea. : Patient denies dysuria, hematuria or urinary hesitancy/frequency. MSK: Patient denies myalgias or arthralgias. Skin: Patient denies rash, abscess or jaundice. Psych: Patient admits to gnkg-rj-kifqpixy anxiety about her heart health but she denies symptoms of uncontrolled depression. Neuro: Patient denies headache, paresthesias or focal neurologic deficits. Allergy: Patient denies lip swelling or tongue swelling. Hematology: Patient denies easy bleeding or easy bruisability. Endocrinology: Patient denies polyuria, polydipsia or polyphagia but she did notice increased blood glucose in spite of no recently increased sugar intake. 14 point ROS otherwise negative except for positives noted above in HPI. Vital Signs Vital Signs Vital Signs: 02/12/24 19:45 02/12/24 20:36 02/12/24 20:44 Temperature 97.8 F Temperature Source Temporal Pulse Rate 52 L 138 H 121 H Respiratory Rate 18 23 H 16 Blood Pressure 168/85 H 158/118 H 173/131 H Blood Pressure Mean 112 131 145 Pulse Ox 96 96 Oxygen Delivery Method Room Air 02/12/24 21:00 Temperature Temperature Source Pulse Rate 133 H Respiratory Rate 18 Blood Pressure 153/100 H Blood Pressure Mean 117 Pulse Ox 99 Oxygen Delivery Method Room Air Weight Weight: 230 lb 1 oz Body Mass Index (BMI) 42.0 Physical Exam Const alert, oriented x3 and no apparent distress Constitutional Narrative: Morbidly obese with mild anxiety. General Appearance: cooperative HEENT normocephalic, head/scalp atraumatic, hearing grossly normal bilaterally and moist oral mucous membranes Eyes PERRL and EOMs intact bilaterally Neck no lymphadenopathy and supple Resp normal respiratory effort, no retractions, no use of accessory muscles and clear to auscultation bilaterally Cardio Cardio Narrative: Tachycardic and irregularly irregular. GI normal to inspection, nondistended, normoactive bowel sounds, soft to palpation, non-tender and non-distended GI Narrative: Morbidly obese. Extremity normal to inspection, full ROM and no clubbing, cyanosis or edema Skin Skin Narrative: Patient has no evidence of rash, abscess or jaundice. Neuro oriented x3, CN's II-XII intact bilaterally, moves all extremities and no focal motor deficits Sensorium / Orientation: awake, alert, oriented to person, oriented to place and oriented to time Speech: speech normal Psych Mood & Affect: anxious Results Medical Records Data Attestation: I reviewed the patient's medical records Lab / Micro Data Attestation: I reviewed the patient's lab results. 02/13/24 03:45 02/13/24 03:45 Labs: Laboratory Results - last 24 hr 02/12/24 20:21: WBC 15.6 H, RBC 4.81, Hgb 13.3, Hct 42.5, MCV 88.4, MCH 27.7, M CHC 31.3 L, RDW Std Deviation 43.9, RDW Coeff of Renae 13.5, Plt Count 307, MPV 10.1, Immature Gran % (Auto) 0.400, Neut % (Auto) 79.7 H, Lymph % (Auto) 13.1 L, [place] % (Auto) 6.3, Eos % (Auto) 0.1, Baso % (Auto) 0.4, Absolute Neuts (auto) 12.4 H, Absolute Lymphs (auto) 2.05, Nucleated RBC % 0, PT 13.6, INR 1.0, APTT 25.0, D-Dimer Quant (PE/DVT) 0.56 H*, Sodium 137, Potassium 4.2, Chloride 105, C arbon Dioxide 19.0 L, Anion Gap 13, BUN 10, Creatinine 1.01, Estim Creat Clear Calc 54.55, Est GFR (MDRD) Af Amer 69, Est GFR (MDRD) Non-Af 57 L, B UN/Creatinine Ratio 9.9 L, Glucose 281 H, Calcium 9.5, Troponin I High Sens 1889 H*, B-Natriuretic Peptide 170.6 H Imaging Radiology Impression Chest X-Ray 02/12/24 20:25 IMPRESSION: 1. Shallow inspiration crowding of bronchovascular markings. 2. No evidence of acute cardiopulmonary process. Electronically Signed: Josiah Braxton MD at 20:35 EDT , Assessment & Plan Assessment/Plan (1) Non-ST elevation RI (NSTEMI): (2) New onset a-fib: (3) Morbid obesity with BMI of 40.0-44.9, adult: (4) Hyperglycemia: (5) Leukocytosis: QUALIFIERS: Leukocytosis type: unspecified Qualified Code(s): D 72.829 - Elevated white blood cell count, unspecified (6) Essential hypertension: PLAN: Plan 1. NSTEMI; evidenced by highly elevated initial troponin of 1,189 pg/mL present on admission followed by a second upward trending troponin of 4,407 pg/mL - Admit to PCU for treatment under the NSTEMI protocol. Continue IV Heparin plus statin and add ECASA and Plavix plus prn SL NTG. Serialize troponin. Check echocardiogram to evaluate LVEF. Give Tylenol prn for [id number]-[id number] (level 1-5/10) pain or fever. Give Dilaudid IV prn for severe (level 6-10/10) pain. Finally, we will consult Dr. Delgado Moe of [facility] to see this patient on-rounds in the AM for further recommendations regarding LHC this admission with help appreciated in advance. 2. New-onset Atrial Fibrillation with RVR likely triggering #1 - Maintain IV Cardizem to keep heart rate < 100 bpm and resume IV Heparin per cardiac protocol. Check TSH. 3. Morbid Obesity; with BMI of 42.1 this admission complicating complicating #1 & #2 - Weight loss will be recommended. This complicates her case and may hamper her recovery. 4. DM-2; uncontrolled with hyperglycemia of 281 mg/dL present on admission adding to the medical complexity of #1 - #3 - Keep NPO for now with likely need for LHC. Check FSBS q. 6 hours plus SSI. Check HgbA1c to objectively assess quality of diabetic control. 5. Leukocytosis of 15.6K present on admission suspected to be due to acute stress response arising from #1 - #4 - Check UA. Otherwise, maintain supportive care outlined above and monitor for improvement with no other obvious signs or symptoms of acute infection at this time. 6. Essential Hypertension - Continue home regimen as previous plus give prn IV Hydralazine for systolic blood pressure > 160 mmHg. 7. Listed allergy to Morphine (vomiting) - Patient will be treated with prn Dilaudid with suspected intolerance to morphine and not a true allergic reaction. 8. Gout - Chronic and stable with no evidence of acute flare a this time. Resume Allopurinol at previous dose and schedule. 9. OA; of the Left knee and hip - Give Tylenol prn. 10. DVT prophylaxis - Patient already on IV Heparin for #1 which will be continued. Total time: Approximately 75 minutes. Charges/Coding Visit Charges Inpatient E&M: 77051 Init Hosp L3
--- NOTE | 2024-02-12 22:11 | EKG12_ITS ---
Test Reason : DYSRHYTHMIA Blood Pressure : / mmHG Vent. Rate : 146 BPM Atrial Rate : 000 BPM P-R Int : 000 ms QRS Dur : 084 ms QT Int : 280 ms P-R-T Axes : 000 -04 120 degrees QTc Int : 436 ms Critical Test Result: High HR Atrial fibrillation with rapid ventricular response Inferior infarct , age undetermined ST & T wave abnormality, consider lateral ischemia Abnormal ECG Confirmed by Delgado Moe ([id number]), editor managing newspaper KALPESH MCLAUGHLIN ([id number]) on 02/15/2024 11:24:15 AM Referred By: LISA Confirmed By:Delgado Moe
[2024-02-12 22:32] LABS: Reflex Troponin-HS? (from REC) Y
[2024-02-12] MEDS: Aspirin 81 MG TAB.CHEW 324 MG PO (23:25)
[2024-02-12] MEDS: 0.9% Saline Lock 10 ML Syringe IV (23:28)
[2024-02-12 23:40] LABS: Thyroid Stim Hormone (TSH) 0.955 uIU/mL (0.358-3.740); Troponin-I HS 4407 pg/mL (3.0-54.0)
[2024-02-12] MEDS: Metoprolol Tartrate 50 MG Tablet PO (23:51)
[2024-02-13] VITALS (21 sets, daily range): BP systolic 100–160; BP diastolic 74–102; PULSE 84–132; RESP 13–27; TEMP 36.4–36.6; O2SAT 89–96; BMI 41.5
[2024-02-13 00:50] LABS: Bacteria 0 SEEN /hpf (None Seen); Mucous, Urine 0 SEEN /hpf (<or=2+); Red Blood Cells-Urine 0 SEEN /hpf (0-5); Squamous Epithelial Cells - UA 0 SEEN /hpf (5-10); White Blood Cells 0 SEEN /hpf (0-5)
[2024-02-13 00:52] LABS: Color, Urine Yellow (Yellow); Glucose, Dipstick 250 mg/dl (Normal); Ketone-Dipstick 15 mg/dl (Negative); Leukocyte Esterase-Dipstick 25 /ul (Negative); Nitrite-Dipstick Negative (Negative); Occult Blood-Urine Negative /ul (Negative); Protein-Dipstick 15 mg/dl (Negative); Urine Bilirubin Dipstick Negative (Negative); Urine Clarity Sl. Cloudy (Clear); Urine Urobilinogen Normal (Normal)
[2024-02-13] MEDS: HYDROmorphone 0.5 MG/0.5 ML SYRINGE IV (01:47)
[2024-02-13 03:14] LABS: Troponin-I HS 6103 pg/mL (3.0-54.0)
[2024-02-13 03:25] LABS: Bedside Glucose 203 mg/dL (74-106)
[2024-02-13 03:58] LABS: Hematocrit 38.3 % (37-47); Mean Corp Hgb Conc 31.3 g/dL (32-36); Mean Corpuscular Hgb 27.8 pg (27.0-32.0); Mean Corpuscular Volume 88.7 fL (81-99); Platelet Count 276 K/mm3 (150-450); RBC Distribution Width CV 13.6 % (11.6-14.6); RBC Distribution Width SD 43.7 fl (35.1-43.9); Red Blood Count 4.32 M/mm3 (4.2-5.4); White Blood Count 13.4 K/mm3 (4.4-11.0)
[2024-02-13 04:08] LABS: Partial Thromboplast Time 56.7 Seconds (24.1-36.2)
[2024-02-13 04:23] LABS: ALB/GLOB Ratio 0.8 RATIO (0.9-2.4); AST(SGOT) 36 U/L (15-37); Alanine Aminotransfer ALT/SGPT 19 U/L (13-56); Albumin, Serum 3.2 g/dL (3.2-5.0); Alkaline Phosphatase 58 U/L (45-117); Anion Gap 8 (5-15); BUN 12 mg/dL (7-18); BUN/Creat Ratio 12.8 RATIO (10-20); Calcium,Total 8.7 mg/dL (8.5-10.1); Chloride 104 mmol/L (98-107); Cholesterol 163 mg/dL (200); Creatinine, Serum 0.94 mg/dL (0.55-1.02); EST Glomerular Filtration Rate 62 mL/min (>60); Est Glom Filt Rate - Afr Amer 75 mL/min (>60); Estimated Creatinine Clearance 58.66 ml/min; Globulin 3.8 g/dL (2.2-4.2); Glucose 233 mg/dL (74-106); High Density Lipoprotein 56 mg/dL; Potassium 4.3 mmol/L (3.5-5.1); Sodium Level 136 mmol/L (136-145); Thyroid Stim Hormone (TSH) 0.827 uIU/mL (0.358-3.740); Triglycerides 219 mg/dL; Very Low Density Lipoprotein 44 mg/dL (5-40)
--- NOTE | 2024-02-13 05:55 | ECHOD_ITS ---
Reason For Study: AFIB Procedure This was a 2D Doppler, Color Flow transthoracic echocardiogram. Exam performed portable in ICU/CCU. Left Ventricle Normal LV size. The estimated ejection fraction is 55 %. Unable to assess diastolic dysfunction. No regional wall motion abnormalities noted. Right Ventricle Normal RV size. Normal systolic function. Atria The left and right atria are normal. No doppler evidence for ASD. Mitral Valve There is severe mitral annular calcification. There is no mitral valve stenosis. Trivial mitral valve insufficiency. Tricuspid Valve There is no tricuspid stenosis. Unable to estimate RV systolic pressure due to inadequate jet, pulmonary artery pressure probably normal. Aortic Valve Trisinus/trileaflet aortic valve. Aortic sclerosis, no stenosis. There is no aortic stenosis. No aortic valve insufficiency. Pulmonic Valve There is no pulmonic valvular stenosis. No pulmonic valve insufficiency. Great Vessels Normal aortic root. Pericardium/Pleural No pericardial effusion. MMode/2D Measurements & Calculations LVIDd: 4.4 cm IVSd: 1.2 cm Ao root diam: 3.3 cm LVIDs: 3.6 cm LVPWd: 1.4 cm FS: 19.9 % LAV(MOD-bp): 47.0 ml LVAd ap4: 29.1 cm2 SV(MOD-sp4): 45.8 ml LAV(MOD-sp2): 38.2 ml LVLd ap4: 7.6 cm LAV(MOD-sp4): 46.4 ml EDV(MOD-sp4): 97.3 ml EDV(sp4-el): 94.6 ml LVAs ap4: 20.5 cm2 LVLs ap4: 7.2 cm ESV(MOD-sp4): 51.5 ml ESV(sp4-el): 49.1 ml EF(MOD-sp4): 47.1 % EF(sp4-el): 48.0 % SV(sp4-el): 45.4 ml LA A4 area: 18.9 cm2 LA dimension(2D): 3.2 cm RA A4 area: 6.7 cm2 Time Measurements MV dec time: 0.09 sec Doppler Measurements & Calculations MV E max yang: 93.3 cm/sec Lat Peak E' Yang: 9.7 cm/sec Med Peak E' Yang: 6.9 cm/sec MV A max yang: 106.9 cm/sec E/E' lat: 9.6 E/E' med: 13.6 MV E/A: 0.87 Ao V2 max: 119.0 cm/sec LV V1 max: 103.1 cm/sec MV dec slope: 1053 cm/sec2 Ao max P.7 mmHg LV V1 max P.3 mmHg Ao V2 mean: 84.6 cm/sec LV V1 mean P.3 mmHg Ao mean P.2 mmHg LV V1 mean: 70.9 cm/sec Ao V2 VTI: 21.2 cm LV V1 VTI: 17.3 cm AV (velocity ratio): 0.81 PA V2 max: 85.4 cm/sec PA V2 mean: 55.2 cm/sec ECHO/Echo Complete Interpretation Summary The estimated ejection fraction is 55 %. Unable to assess diastolic dysfunction. Trivial mitral valve insufficiency. Ordering Physician: Theron Martinez Referring Physician: Hannah Garcia M.D. Performed By: Flores Christianson RCS
--- NOTE | 2024-02-13 06:56 | PN.HOSP_ITS ---
Reason for Visit Reason for Visit: Diagnoses Elevated white blood cell count, unspecified (02/12/24) Morbid (severe) obesity due to excess calories (02/12/24) Essential (primary) hypertension (02/12/24) Non-ST elevation (NSTEMI) myocardial infarction (02/12/24) Unspecified atrial fibrillation (02/12/24) Elevated blood-pressure reading, without diagnosis of hypertension (02/12/24) Hyperglycemia, unspecified (02/12/24) Body mass index [BMI] 40.0-44.9, adult (02/12/24) Subjective Subjective Feeling fine post cardiac catheterization. No further chest pain. Objective Data Objective Data Vital Signs: Vital Signs Temp Pulse Resp BP Pulse Ox O2 Del Method O2 Flow Rate 36.6 C 93 25 H 139/77 H 92 Room Air 2 02/13/24 04:00 02/13/24 06:00 02/13/24 06:00 02/13/24 06:00 02/13/24 06:00 02/13/24 06:00 02/13/24 04:00 Oxygen Flow Rate (L/min) 2 Oxygen Delivery Method Room Air Weight: 103.2 kg Body Mass Index (BMI) 41.5 Intake & Output: Intake and Output for Last 24 Hours 02/11/24 02/12/24 02/13/24 23:59 23:59 23:59 Intake Total 12.00 / 17.00 35 / 35 Output Total 400 / 400 Balance 12.00 / -183.00 -365 / -365 Lab / Micro Data 02/13/24 03:45 02/13/24 03:45 Labs: Laboratory Results - last 24 hr 02/12/24 20:21: WBC 15.6 H, RBC 4.81, Hgb 13.3, Hct 42.5, MCV 88.4, MCH 27.7, M CHC 31.3 L, RDW Std Deviation 43.9, RDW Coeff of Renae 13.5, Plt Count 307, MPV 10.1, Immature Gran % (Auto) 0.400, Neut % (Auto) 79.7 H, Lymph % (Auto) 13.1 L, [place] % (Auto) 6.3, Eos % (Auto) 0.1, Baso % (Auto) 0.4, Absolute Neuts (auto) 12.4 H, Absolute Lymphs (auto) 2.05, Nucleated RBC % 0, PT 13.6, INR 1.0, APTT 25.0, D-Dimer Quant (PE/DVT) 0.56 H*, Sodium 137, Potassium 4.2, Chloride 105, C arbon Dioxide 19.0 L, Anion Gap 13, BUN 10, Creatinine 1.01, Estim Creat Clear Calc 54.55, Est GFR (MDRD) Af Amer 69, Est GFR (MDRD) Non-Af 57 L, B UN/Creatinine Ratio 9.9 L, Glucose 281 H, Calcium 9.5, Troponin I High Sens 1889 H*, B-Natriuretic Peptide 170.6 H 02/12/24 22:50: Troponin I High Sens 4407 H*, TSH 0.955 02/13/24 00:30: Urine Color Yellow, Urine Clarity Sl. Cloudy, Urine pH 6.0, Ur Specific [place] 1.020, Urine Protein 15 H, Urine Glucose (UA) 250 H, Urine Ketones 15 H, Urine Occult Blood Negative, Urine Nitrite Negative, Urine Bilirubin Negative, Urine Urobilinogen Normal, Ur Leukocyte Esterase 25 H, Urine RBC 0 SEEN, Urine WBC 0 SEEN, Ur Squamous Epith Cells 0 SEEN, Urine Bacteria 0 SEEN, Urine Mucus 0 SEEN 02/13/24 02:35: Troponin I High Sens 6103 H* 02/13/24 03:07: POC Glucose 203 H 02/13/24 03:45: WBC 13.4 H, RBC 4.32, Hgb 12.0, Hct 38.3, MCV 88.7, MCH 27.8, M CHC 31.3 L, RDW Std Deviation 43.7, RDW Coeff of Renae 13.6, Plt Count 276, MPV 10.0, APTT 56.7 H, Sodium 136, Potassium 4.3, Chloride 104, Carbon Dioxide 24.0, Anion Gap 8, BUN 12, Creatinine 0.94, Estim Creat Clear Calc 58.66, Est GFR (MDRD) Af Amer 75, Est GFR (MDRD) Non-Af 62, BUN/Creatinine Ratio 12.8, Glucose 233 H, Calcium 8.7, Total Bilirubin 0.50, AST 36, ALT 19, Alkaline Phosphatase 58, Total Protein 7.0, Albumin 3.2, Globulin 3.8, Albumin/Globulin Ratio 0.8 L, Triglycerides 219 H, Cholesterol 163, LDL Cholesterol 63, VLDL Cholesterol 44 H, HDL Cholesterol 56, TSH 0.827 Radiography Diagnostic Testing: Radiology Impression Chest X-Ray 02/12/24 20:25 IMPRESSION: 1. Shallow inspiration crowding of bronchovascular markings. 2. No evidence of acute cardiopulmonary process. Electronically Signed: Josiah Braxton MD at 20:35 EDT , Physical Exam Const alert and no apparent distress HEENT head/scalp atraumatic and moist oral mucous membranes Resp normal respiratory effort, no retractions, no use of accessory muscles and clear to auscultation bilaterally Cardio regular rate, regular rhythm, S1 normal heart sound and S2 normal heart sound GI normal to inspection, nondistended, normoactive bowel sounds, soft to palpation, non-tender and non-distended Extremity normal to inspection Extremity Narrative: Pulse intact in right lower extremity Assessment & Plan Assessment/Plan (1) Non-ST elevation OR (NSTEMI): (2) New onset a-fib: (3) Morbid obesity with BMI of 40.0-44.9, adult: (4) Hyperglycemia: (5) Leukocytosis: QUALIFIERS: Leukocytosis type: unspecified Qualified Code(s): D 72.829 - Elevated white blood cell count, unspecified (6) Essential hypertension: PLAN: Plan NSTEMI * troponins up to 6103 * On heparin drip, aspirin, clopidogrel and pravastatin. Continue with metoprolol tartrate 50 mg twice daily.; * Cardiology consult. Cath showed mid LAD 80 to 90% stenosis, proximal circumflex 80 to 90% stenosis, mid circumflex 100% stenosis, RCA 95 to 99% stenosis. * Echo shows an EF of 55%. * Cardiology recommending transfer to a tertiary facility for cardiothoracic surgery evaluation. Family has requested [facility]. Patient will be transferred there today. Atrial Fibrillation with RVR * On diltiazem drip as well as anticoagulation with heparin drip. * As above with the non-STEMI, echo and cardiology consultation. Chronic conditions * Obesity class III: Complicates care and recovery. * DM-2: SGLT 2 inhibitors on hold. Metformin held in anticipation of cath. Sliding scale insulin. Check an A1c * HTN: stable. continue lisinopril, metoprolol VTE prophylaxis: Not indicated as patient is anticoagulated.
[2024-02-13 07:54] LABS: Hemoglobin A1c 6.9 % (3.8-5.6)
[2024-02-13] MEDS: Allopurinol 100 MG Tablet PO (08:11)
[2024-02-13] MEDS: Metoprolol Tartrate 50 MG Tablet PO (08:13)
[2024-02-13] MEDS: Clopidogrel Bisulfate 75 MG Tablet PO (08:14)
--- NOTE | 2024-02-13 09:21 | CASEMGMT ---
STACY MADDOX Assessment: Face to Face with pt for initial transition planning/care coordination assessment. STACY MADDOX introduced self and role at [facility], pt voices understanding and consents to assessment. Pt is A&O x4 and answers all questions appropriately at this time. Pt sitting up in bed in no distress with dtr and granddtr at bedside. They stepped out during assessment. Care providers, pharmacy, and demographics verified/updated. Admitting Dx: NSTEMI and new onset afib with RVR PCP:Jose Specialists:dorota Joshi [facility] Pharmacy: [facility] Insurance: [facility] Prescription Benefit: yes LNOK: Rick Vogel, son; Tonia Vogel, sister Living Arrangements: Pt lives alone in a single story home with 2 steps to enter with a grab bar. Pt reports she is I in ADLs and denies concerns at home. Transportation: Pt drives self and denies concerns with transportation. DME:grab bars in the bathroom, walk in shower, cane and walker, medic alert, BGM with sufficient supply of strips and lancets HHC/SNF: Denies hx of Pt states no concerns with going home at time of dc. Pt denies needs for any homegoing services. Pt states no further concerns/needs. CM to follow. Advised pt to ask CM if any further question/concerns/needs arise, voices understanding. Pt Goal: Home Plan: Home follow for zari Anaya RN, CM
--- NOTE | 2024-02-13 09:38 | CON.PCM.CA_ITS ---
Assessment & Plan Assessment/Plan (1) Non-ST elevation NC (NSTEMI): PLAN: Patient's EKG is suggestive of inferior ischemic changes. Did not meet definitive criteria for STEMI. She is continuing to have similar chest symptoms as the initial symptoms that she presented with. Would recommend urgent left heart catheterization. The procedure risk/benefit and alternatives were explained to the patient and her daughter they voiced understanding and agrees to proceed. The patient did voice that should she need transfer for surgical intervention she preferred [facility]. (2) New onset a-fib: PLAN: Patient converted to sinus rhythm on IV Cardizem drip overnight. She has no change in any symptoms with conversion. We are not sure the duration the presumption is that it started yesterday afternoon on 02/11. This would mean less than 24 hours. At this point time we will continue the beta-bill and stop the Cardizem drip. Pending the outcome of the catheterization we will make a decision on long-term anticoagulation versus dual antiplatelet therapy. The patient's [id number] score is 6 which puts her at high risk of 9.8 %/year of stroke. The patient's family was able to obtain pictures and she has had this left facial droop previously. There is no evidence of a TIA or CVA at this time or in the past to their knowledge. (3) Morbid obesity with BMI of 40.0-44.9, adult: PLAN: The patient carries a history of morbid obesity she is being managed by the primary service. (4) Essential hypertension: PLAN: Blood pressure has come under better control with a combination of beta- bill the Cardizem drip and lisinopril. Given the patient's diabetes I recommend that we increase her lisinopril to 10 mg daily we will continue the metoprolol tartrate to 50 mg twice daily and determine further treatment based on the patient's catheterization outcome and echocardiogram. PLAN: Plan 1. Urgent left heart catheterization this morning and further recommendations to follow. 2. Discontinue IV Cardizem. 3. Pending the outcome of the catheterization will determine utilization of heparin versus dual antiplatelet therapy or long-term oral anticoagulation therapy. 4. Will obtain 2D echocardiogram to evaluate LV function and valvular issues. 5. Continue with aggressive management of blood pressure. 6. Continue with aggressive management of the patient's diabetes per the primary service. HPI Consult Data Date of Consult: 02/13/24 HPI Narrative Reason for Consultation: Non-STEMI and new onset atrial fibrillation. HPI Narrative: MARY GUIDRY, is a 74 F who presents to the emergency department at [facility] with sudden onset of chest discomfort and new onset presumed new onset atrial fibrillation with rapid ventricular response. The patient was in the [employer] salon on the afternoon of February 11 when she developed chest discomfort that occurred when she took of breath and and became diaphoretic. The diaphoresis lasted about 30 minutes and she was brought to the emergency department. At that time she was documented to be in atrial fibrillation with a rapid ventricular response. The patient is EKG shows some subtle ST elevation in the inferior leads about 1 mm in aVF but with a wandering baseline and less than 1 mm in leads II and III. She did have some moderate Q waves in her inferior leads as well. Subsequent EKG after she converted to normal sinus rhythm early on the morning of showed Q waves in the inferior leads with no significant ST segment elevation. The patient continues to have discomfort when she takes of breath and but she is not diaphoretic. She reports that she does not feel any different in atrial fibrillation or in sinus rhythm. She has not been up and ambulatory in sinus rhythm. The patient had no previous history of atrial fibrillation flutter and denied any previous palpitations and she had no palpitations when she was in atrial fibs yesterday. The patient denies any history of TIA or CVA. She does have a chronic left facial droop that she feels is related to extraction of teeth on that side. She does have facial muscle tone in that side and smile symmetrically. They are trying to find some old pictures to compare. The patient denies any other neurologic symptoms. The patient denies any claudication she denies PND orthopnea. She had had no previous chest discomfort like this to her knowledge. There is a family history of mitral valve prolapse requiring mitral valve repair and her and son. The patient has been diabetic on oral agents since 1995. The patient is on statin therapy pravastatin 20 mg daily. She has never smoked. The patient is hypertensive. [facility] Home Medications ?Medication ?Instructions ?Recorded ?Last Taken ?Type allopurinol 100 mg tablet 100 mg PO DAILY 02/12/24 Unknown History blood sugar diagnostic (FreeStyle 02/12/24 Unknown History Lite Strips) celecoxib 200 mg capsule 200 mg PO DAILY 02/12/24 Unknown History dulaglutide 3 mg/0.5 mL mg subcut 02/12/24 Unknown History subcutaneous pen injector (Trulicity) lancets 28 gauge (FreeStyle 02/12/24 Unknown History Lancets) lisinopril 2.5 mg tablet 2.5 mg PO DAILY 02/12/24 Unknown History metformin 500 mg tablet 1,000 mg PO BID 02/12/24 Unknown History pravastatin 20 mg tablet 20 mg PO DAILY 02/12/24 Unknown History semaglutide 0.25 mg or 0.5 mg (2 0.5 mg subcut QWEEK 02/12/24 Unknown History mg/3 mL) subcutaneous pen injector (Ozempic) Allergy/AdvReac Type Severity Reaction Status Date / Time niacin AdvReac Intermediate HOT Verified 02/12/24 19:47 morphine AdvReac Mild Vomiting Verified 02/12/24 19:47 Social History Smoking Status: Never smoker ROS Constitutional Constitutional: Reports as per HPI Eyes Eyes: Reports systems reviewed and no addt'l complaints, except as documented ENT HEENT: Reports systems reviewed and no addt'l complaints, except as documented Cardiovascular Cardiovascular: Reports as per HPI Respiratory/Chest Respiratory/Chest: Reports as per HPI Gastrointestinal Gastrointestinal: Reports systems reviewed and no addt'l complaints, except as documented Genitourinary Genitourinary: Reports systems reviewed and no addt'l complaints, except as documented Musculoskeletal Musculoskeletal: Reports systems reviewed and no addt'l complaints, except as documented Integumentary Integumentary: Reports systems reviewed and no addt'l complaints, except as documented Neurologic Neurologic: Reports as per HPI Psychiatric Psychiatric: Reports systems reviewed and no addt'l complaints, except as documented Endocrine Endocrinology: Reports as per HPI Hematologic/Lymphatic Hematologic/Lymphatic: Reports systems reviewed and no addt'l complaints, except as documented Allergic/Immunologic Allergic/Immunologic: Reports systems reviewed and no addt'l complaints, except as documented Physical Exam Const alert and oriented x3 HEENT normocephalic Eyes EOMs intact bilaterally Neck no JVD and no carotid bruits Chest inspection of chest normal Resp normal respiratory effort and clear to auscultation bilaterally Cardio regular rate, regular rhythm, S1 normal heart sound, S2 normal heart sound, no murmurs, no rub and no gallops Cardio Narrative: Distant heart tones due to body habitus. Peripheral Pulses: radial pulses present bilateral 1+, posterior tibial pulses present bilateral diminished and dorsalis pedis pulses present bilateral diminished GI soft to palpation Extremity General Extremity: edema bilateral lower extremity Details: trace (Ankles the left which has had trauma.) Skin no rashes or lesions noted Neuro Neuro Narrative: The patient does have a slight left facial droop she reports that this has been present for quite some time the the family is searching for pictures to document it. Psych mental status grossly normal Risk Stratification Risk Stratification Applicable: Yes Age >/= 65: Yes >/= 3 CAD Risk Factors (HTN, HLD, DM, family hx of CAD, or current smoker): Yes Aspirin Use in the Past 7 Days: No Severe Angina (>/= episodes in 24 hours): Yes EKG ST Changes >/= 0.5mm: Yes Positive Cardiac Marker: Yes OK Risk Stratification Score: 5 OK % Risk: 25% Risk Charges/Coding Visit Charges Inpatient E&M: 95780 Init Hosp L3 Objective Data Vital Signs: Vital Signs Temp Pulse Resp BP Pulse Ox O2 Del Method O2 Flow Rate 97.6 F L 84 24 H 131/82 H 93 Room Air 2 02/13/24 08:00 02/13/24 09:00 02/13/24 09:00 02/13/24 09:00 02/13/24 09:00 02/13/24 09:00 02/13/24 04:00 Oxygen Flow Rate (L/min) 2 Oxygen Delivery Method Room Air Weight: 227 lb 8.273 oz Body Mass Index (BMI) 41.5 Intake & Output: Intake and Output for Last 24 Hours 02/11/24 02/12/24 02/13/24 23:59 23:59 23:59 Intake Total 12.00 / 17.00 171.25 / 171.25 Output Total 400 / 400 Balance 12.00 / -183.00 -228.75 / -228.75 Lab / Micro Data Attestation: I reviewed the patient's lab results. 02/13/24 03:45 02/13/24 03:45 Labs: Laboratory Results - last 24 hr 02/12/24 20:21: WBC 15.6 H, RBC 4.81, Hgb 13.3, Hct 42.5, MCV 88.4, MCH 27.7, M CHC 31.3 L, RDW Std Deviation 43.9, RDW Coeff of Renae 13.5, Plt Count 307, MPV 10.1, Immature Gran % (Auto) 0.400, Neut % (Auto) 79.7 H, Lymph % (Auto) 13.1 L, [place] % (Auto) 6.3, Eos % (Auto) 0.1, Baso % (Auto) 0.4, Absolute Neuts (auto) 12.4 H, Absolute Lymphs (auto) 2.05, Nucleated RBC % 0, PT 13.6, INR 1.0, APTT 25.0, D-Dimer Quant (PE/DVT) 0.56 H*, Sodium 137, Potassium 4.2, Chloride 105, C arbon Dioxide 19.0 L, Anion Gap 13, BUN 10, Creatinine 1.01, Estim Creat Clear Calc 54.55, Est GFR (MDRD) Af Amer 69, Est GFR (MDRD) Non-Af 57 L, B UN/Creatinine Ratio 9.9 L, Glucose 281 H, Calcium 9.5, Troponin I High Sens 1889 H*, B-Natriuretic Peptide 170.6 H 02/12/24 22:50: Troponin I High Sens 4407 H*, TSH 0.955 02/13/24 00:30: Urine Color Yellow, Urine Clarity Sl. Cloudy, Urine pH 6.0, Ur Specific [place] 1.020, Urine Protein 15 H, Urine Glucose (UA) 250 H, Urine Ketones 15 H, Urine Occult Blood Negative, Urine Nitrite Negative, Urine Bilirubin Negative, Urine Urobilinogen Normal, Ur Leukocyte Esterase 25 H, Urine RBC 0 SEEN, Urine WBC 0 SEEN, Ur Squamous Epith Cells 0 SEEN, Urine Bacteria 0 SEEN, Urine Mucus 0 SEEN 02/13/24 02:35: Troponin I High Sens 6103 H* 02/13/24 03:07: POC Glucose 203 H 02/13/24 03:45: WBC 13.4 H, RBC 4.32, Hgb 12.0, Hct 38.3, MCV 88.7, MCH 27.8, M CHC 31.3 L, RDW Std Deviation 43.7, RDW Coeff of Renae 13.6, Plt Count 276, MPV 10.0, APTT 56.7 H, Sodium 136, Potassium 4.3, Chloride 104, Carbon Dioxide 24.0, Anion Gap 8, BUN 12, Creatinine 0.94, Estim Creat Clear Calc 58.66, Est GFR (MDRD) Af Amer 75, Est GFR (MDRD) Non-Af 62, BUN/Creatinine Ratio 12.8, Glucose 233 H, Hemoglobin A1c 6.9 H, Calcium 8.7, Total Bilirubin 0.50, AST 36, ALT 19, Alkaline Phosphatase 58, Total Protein 7.0, Albumin 3.2, Globulin 3.8, A lbumin/Globulin Ratio 0.8 L, Triglycerides 219 H, Cholesterol 163, LDL Cholesterol 63, VLDL Cholesterol 44 H, HDL Cholesterol 56, TSH 0.827 Rhythm Strip Rhythm Strip: Sinus Rhythm Rate: 85 Cardiology Labs/Tests 02/12/24 20:21: WBC 15.6 H, RBC 4.81, Hgb 13.3, Hct 42.5, MCV 88.4, MCH 27.7, M CHC 31.3 L, Plt Count 307, MPV 10.1, Immature Gran % (Auto) 0.400, Neut % (Auto) 79.7 H, Lymph % (Auto) 13.1 L, [place] % (Auto) 6.3, Eos % (Auto) 0.1, Baso % (Auto) 0.4, Absolute Neuts (auto) 12.4 H, Nucleated RBC % 0, PT 13.6, INR 1.0, APTT 25.0, D-Dimer Quant (PE/DVT) 0.56 H*, Sodium 137, Potassium 4.2, Chloride 105, Carbon Dioxide 19.0 L, Anion Gap 13, BUN 10, Creatinine 1.01, Est GFR (MDRD) Af Amer 69, Est GFR (MDRD) Non-Af 57 L, BUN/Creatinine Ratio 9.9 L, G [place] 281 H, Calcium 9.5, B-Natriuretic Peptide 170.6 H 02/13/24 00:30: Urine Color Yellow, Urine Clarity Sl. Cloudy, Urine pH 6.0, Ur Specific [place] 1.020, Urine Protein 15 H, Urine Glucose (UA) 250 H, Urine Ketones 15 H, Urine Occult Blood Negative, Urine Nitrite Negative, Urine Bilirubin Negative, Urine Urobilinogen Normal, Ur Leukocyte Esterase 25 H, Urine RBC 0 SEEN, Urine WBC 0 SEEN 02/13/24 03:45: WBC 13.4 H, RBC 4.32, Hgb 12.0, Hct 38.3, MCV 88.7, MCH 27.8, M CHC 31.3 L, Plt Count 276, MPV 10.0, APTT 56.7 H, Sodium 136, Potassium 4.3, Chloride 104, Carbon Dioxide 24.0, Anion Gap 8, BUN 12, Creatinine 0.94, Est GFR (MDRD) Af Amer 75, Est GFR (MDRD) Non-Af 62, BUN/Creatinine Ratio 12.8, Glucose 233 H, Hemoglobin A1c 6.9 H, Calcium 8.7, Total Bilirubin 0.50, Triglycerides 219 H, Cholesterol 163, LDL Cholesterol 63, VLDL Cholesterol 44 H, HDL Cholesterol 56 Rhythm: EKG: ECHO: Stress Test: Cardiac Cath: PCI: CT Surgery: Holter monitor: EPS: PPM: CXR: Chest CT Scan: Radiography Diagnostic Testing: Radiology Impression Chest X-Ray 02/12/24 20:25 IMPRESSION: 1. Shallow inspiration crowding of bronchovascular markings. 2. No evidence of acute cardiopulmonary process. Electronically Signed: Josiah Braxton MD at 20:35 EDT , EKG Initial EKG: Attestation: I personally reviewed and interpreted this EKG as follows: (Atrial fibrillation rapid ventricular response. Minimal ST elevation in inferior leads with Q waves. Subsequent EKG in normal sinus rhythm at 80 bpm she has Q waves with no ST segment elevation.)
--- NOTE | 2024-02-13 10:44 | CASEMGMT ---
According to [facility] website, the following tertiary facilities are in network: [facility], [place], [facility], [facility], [facility], [facility], [facility], [facility] and .
--- NOTE | 2024-02-13 11:33 | CL.D_ITS ---
Patient Name: MARY GUIDRY Study Date: 02/13/2024 Performing: Mel Maldonado MD Ht: 62 inches 157.48 cm : 1950 Wt: 227.8 lbs 103.2 kg Age: 74 Gender: female BSA: 2.02 PROCEDURE(S) PERFORMED [id number])[facility] CLINICAL PROFILE AND INDICATIONS Indications: ACS <= 24 hrs Heart Failure: None CONCLUSIONS Multivessel coronary artery disease as described. RECOMMENDATIONS CT surgery consult to discuss revascularization options DESCRIPTION OF PROCEDURE The patient arrived to the procedure lab. The risks and benefits of the procedure as well as a full description of our services here and current unavailability of surgical backup were fully explained to the patient and/or their significant other prior to the catheterization. The Timeout was completed, verifying the correct patient and procedure. The patient's procedural site was prepped and draped in the usual fashion. Local anesthetic was given subcutaneously to right radial region with Lidocaine 2%. Local anesthetic was given subcutaneously to right groin region with Lidocaine 2%. Using a modified Seldinger technique, arterial access was obtained via the right femoral artery, with Micropuncture set Right Coronary Artery selective angiography was then performed in multiple views using a 5 Fr. JR 4 catheter. Left Coronary Artery selective angiography was performed in multiple views using a 5 Fr. JL4 catheter. Left Coronary Artery selective angiography was performed in multiple views using a 5 Fr. JL3.5 catheter.Contrast was injected through the sheath and the Right Iliac and Femoral artery were assessed for possible closure device.The arterial sheath was pulled and a Perclose closure device was deployed for hemostasis CORONARY ANGIOGRAPHY DOMINANCE: Co- Dominant Patient's coronary arteries are heavily calcified LEFT MAIN: Mild luminal irregularities LEFT ANTERIOR DESCENDING ARTERY: MID LAD: 80-90 % Stenosis CIRCUMFLEX ARTERY: PROX CIRC: 80-90 % Stenosis MID CIRC: 100 % Stenosis RIGHT CORONARY ARTERY: PROX RCA: 95-99 % Stenosis COMPLICATIONS No Complications PROCEDURE MEDICATIONS Fentanyl 25 mcg IV Versed 1 mg IV Oxygen: 2 L/min via nasal cannula SUMMARY OF HEMODYNAMIC DATA Time AIR REST ECG 09:57:43 AO 111/59 (83) SA 10:34:25 Signed By Mel Maldonado MD On 02/13/2024 11:33:05 Mel Maldonado MD
[2024-02-13] MEDS: 0.9% Saline Lock 10 ML Syringe IV (11:44)
[2024-02-13] MEDS: 0.9% Normal Saline (1000mL) 1,000 ML 75 ML IV (11:50)
[2024-02-13 12:06] LABS: Bedside Glucose 188 mg/dL (74-106)
[2024-02-13] MEDS: Lisinopril 2.5 MG Tablet PO (12:16)
--- NOTE | 2024-02-13 13:39 | DS.PCM_ITS ---
Providers Date of Admission: 02/12/24 Primary Care Physician: Dr. Hannah Garcia MD Consultations 02/12/24 23:22 Consult: Cardiology Routine Consulting Provider: Delgado Moe Reason for Consult: Chest Pain EMERGENT Consult: No MD Notified: Yes Date Notified: 02/12/24 Time Notified: 22:08 Method of Notification: ED Physician Initiated Reason For Visit: NSTEMI AND NEW-ONSET AFIB WITH RVR Diagnosis Discharge Diagnosis (1) Non-ST elevation AR (NSTEMI): Status: Acute Code(s): I21.4 - Non-ST elevation (NSTEMI) myocardial infarction (2) New onset a-fib: Status: Acute Code(s): I48.91 - Unspecified atrial fibrillation (3) Morbid obesity with BMI of 40.0-44.9, adult: Status: Acute Code(s): E66.01 - Morbid (severe) obesity due to excess calories; Z68.41 - Body mass index [BMI] 40.0-44.9, adult (4) Hyperglycemia: Status: Acute Code(s): R73.9 - Hyperglycemia, unspecified (5) Leukocytosis: Status: Acute Code(s): D72.829 - Elevated white blood cell count, unspecified Qualifiers: Leukocytosis type: unspecified Qualified Code(s): D72.829 - Elevated white blood cell count, unspecified (6) Essential hypertension: Status: Acute Code(s): I10 - Essential (primary) hypertension Plan NSTEMI * troponins up to 6103 * On heparin drip, aspirin, clopidogrel and pravastatin. Continue with metoprolol tartrate 50 mg twice daily.; * Cardiology consult. Cath showed mid LAD 80 to 90% stenosis, proximal circumflex 80 to 90% stenosis, mid circumflex 100% stenosis, RCA 95 to 99% stenosis. * Echo shows an EF of 55%. * Cardiology recommending transfer to a tertiary facility for cardiothoracic surgery evaluation. Family has requested [facility]. Patient will be transferred there today. Atrial Fibrillation with RVR * On diltiazem drip as well as anticoagulation with heparin drip. * As above with the non-STEMI, echo and cardiology consultation. Chronic conditions * Obesity class III: Complicates care and recovery. * DM-2: SGLT 2 inhibitors on hold. Metformin held in anticipation of cath. Sliding scale insulin. Check an A1c * HTN: stable. continue lisinopril, metoprolol VTE prophylaxis: Not indicated as patient is anticoagulated. Medications at Discharge Home Medications allopurinol 100 mg tablet 100 mg PO DAILY 02/12/24 blood sugar diagnostic (FreeStyle Lite Strips) 02/12/24 celecoxib 200 mg capsule 200 mg PO DAILY 02/12/24 dulaglutide 3 mg/0.5 mL subcutaneous pen injector (Trulicity) mg subcut 02/12/24 lancets 28 gauge (FreeStyle Lancets) 02/12/24 lisinopril 2.5 mg tablet 2.5 mg PO DAILY 02/12/24 metformin 500 mg tablet 1,000 mg PO BID 02/12/24 pravastatin 20 mg tablet 20 mg PO DAILY 02/12/24 semaglutide 0.25 mg or 0.5 mg (2 mg/3 mL) subcutaneous pen injector (Ozempic) 0.5 mg subcut QWEEK 02/12/24 Hospital Course Operations None Procedures 2-D Echocardiogram and Cardiac catheterization Summary of Care Provided Minutes Spent on Discharge: 35 Hospital Course: Patient presents with chest pain. Patient [id number] myocardial infarction. She was started on aspirin, complete overall and heparin drip. Patient had a cardiac catheterization and was noted to have multivessel disease. Patient requested transfer to [facility] to be seen by CT surgery. Patient was accepted and will be transferred there today. She also had A-fib with RVR and was started on Cardizem drip. Patient did spontaneously convert to normal sinus rhythm. Weight / BMI Weight Weight: 103.2 kg Body Mass Index (BMI) 41.5 ABG / Lab / Microbiology Data 02/13/24 03:45 02/13/24 03:45 Laboratory: Laboratory Results - last 24 hr 02/12/24 20:21: WBC 15.6 H, RBC 4.81, Hgb 13.3, Hct 42.5, MCV 88.4, MCH 27.7, M CHC 31.3 L, RDW Std Deviation 43.9, RDW Coeff of Renae 13.5, Plt Count 307, MPV 10.1, Immature Gran % (Auto) 0.400, Neut % (Auto) 79.7 H, Lymph % (Auto) 13.1 L, Fannin % (Auto) 6.3, Eos % (Auto) 0.1, Baso % (Auto) 0.4, Absolute Neuts (auto) 12.4 H, Absolute Lymphs (auto) 2.05, Nucleated RBC % 0, PT 13.6, INR 1.0, APTT 25.0, D-Dimer Quant (PE/DVT) 0.56 H*, Sodium 137, Potassium 4.2, Chloride 105, C arbon Dioxide 19.0 L, Anion Gap 13, BUN 10, Creatinine 1.01, Estim Creat Clear Calc 54.55, Est GFR (MDRD) Af Amer 69, Est GFR (MDRD) Non-Af 57 L, B UN/Creatinine Ratio 9.9 L, Glucose 281 H, Calcium 9.5, Troponin I High Sens 1889 H*, B-Natriuretic Peptide 170.6 H 02/12/24 22:50: Troponin I High Sens 4407 H*, TSH 0.955 02/13/24 00:30: Urine Color Yellow, Urine Clarity Sl. Cloudy, Urine pH 6.0, Ur Specific [place] 1.020, Urine Protein 15 H, Urine Glucose (UA) 250 H, Urine Ketones 15 H, Urine Occult Blood Negative, Urine Nitrite Negative, Urine Bilirubin Negative, Urine Urobilinogen Normal, Ur Leukocyte Esterase 25 H, Urine RBC 0 SEEN, Urine WBC 0 SEEN, Ur Squamous Epith Cells 0 SEEN, Urine Bacteria 0 SEEN, Urine Mucus 0 SEEN 02/13/24 02:35: Troponin I High Sens 6103 H* 02/13/24 03:07: POC Glucose 203 H 02/13/24 03:45: WBC 13.4 H, RBC 4.32, Hgb 12.0, Hct 38.3, MCV 88.7, MCH 27.8, M CHC 31.3 L, RDW Std Deviation 43.7, RDW Coeff of Renae 13.6, Plt Count 276, MPV 10.0, APTT 56.7 H, Sodium 136, Potassium 4.3, Chloride 104, Carbon Dioxide 24.0, Anion Gap 8, BUN 12, Creatinine 0.94, Estim Creat Clear Calc 58.66, Est GFR (MDRD) Af Amer 75, Est GFR (MDRD) Non-Af 62, BUN/Creatinine Ratio 12.8, Glucose 233 H, Hemoglobin A1c 6.9 H, Calcium 8.7, Total Bilirubin 0.50, AST 36, ALT 19, Alkaline Phosphatase 58, Total Protein 7.0, Albumin 3.2, Globulin 3.8, A lbumin/Globulin Ratio 0.8 L, Triglycerides 219 H, Cholesterol 163, LDL Cholesterol 63, VLDL Cholesterol 44 H, HDL Cholesterol 56, TSH 0.827 02/13/24 11:37: POC Glucose 188 H Radiography Diagnostic Testing: Radiology Impression Chest X-Ray 02/12/24 20:25 IMPRESSION: 1. Shallow inspiration crowding of bronchovascular markings. 2. No evidence of acute cardiopulmonary process. Electronically Signed: Josiah Braxton MD at 20:35 EDT , Echocardiogram 02/13/24 05:55 Interpretation Summary The estimated ejection fraction is 55 %. Unable to assess diastolic dysfunction. Trivial mitral valve insufficiency. Ordering Physician: Theron Martinez Referring Physician: Hannah Garcia M.D. Performed By: Flores Christianson RCS D/C Instructions Discharge Diet: Low fat / Low cholesterol Meaningful Use Info Meaningful Use Meaningful Use Diagnoses (Choose all that apply): AMI AMI/Post PCI/Angioplasty Aspirin given w/in 24hrs of arrival?: Yes ASA at discharge?: Yes Antiplatelet Therapy at Discharge:: Yes Statins at discharge?: Yes Ariel/ARB at discharge?: Yes Beta Ashley at discharge?: Yes Done w/ Acute AR measure.: Yes Documented LVEF (%): 55 Ischemic Stroke Statin Dosing Therapy Reference: STATIN DOSE THERAPY REFERENCE: * Patients > 75 years receive moderate or high dose statin therapy. * Patients 75 years or YOUNGER should receive HIGH intensity statin dose unless contraindicated. You will be required to document reason for non-treatment if statin daily dose does not meet guidelines. HIGH DOSE STATIN THERAPY DAILY Atorvastatin > than or = to 40 mg Rosuvastatin > than or = to 20 mg Amlodipine + Atorvastatin > than or = to 2.5/40 mg Ezetimibe + Simvastatin 10/80 mg Simvastatin 80mg Discharge Plan Admission Admit Date/Time: 02/12/24 22:06 Attending Provider: Bowen Smith Primary Care Provider: Hannah Garcia Consulting Providers: Delgado Moe; Theron Martinez Discharge Orders/Prescriptions Prescriptions: No Action celecoxib 200 mg capsule 200 mg PO DAILY metformin 500 mg tablet 1,000 mg PO BID (DME) FreeStyle Lite Strips Strip MISCELLANEOUS BID allopurinol 100 mg tablet 100 mg PO DAILY pravastatin 20 mg tablet 20 mg PO DAILY lisinopril 2.5 mg tablet 2.5 mg PO DAILY (DME) lancets [FreeStyle Lancets] 28 gauge misc MISCELLANEOUS BID Trulicity 3 mg/0.5 mL pen injector subcut Ozempic 0.25 mg or 0.5 mg (2 mg/3 mL) pen injector 0.5 mg subcut QWEEK Referrals / Follow Up: Hannah Garcia MD [Primary Care Provider] - Disposition Disposition (needs filled in before D/C Order can be placed): Acute Care Hospital Charges/Coding Visit Charges Inpatient E&M: 58314 Disch Hosp >30min
[2024-02-13] MEDS: HEPARIN/D5w 25,000 UNITS 25,000 UNITS/250 ML IV.SOLN. 10 UNITS CONT INF (16:06)
[2024-02-13] MEDS: Diltiazem 125 MG in Dextrose 5%-Water (100mL Bag) 100 ML IV (16:45)
--- NOTE | 2024-02-13 17:09 | NURSING ---
Report called to Ana KUMAR at [facility],
== END 2024-02-13 18:13 | disposition short-term general hospital (02) | DRG 281 ==
LOC: ED 21:40 → ICU 23:44
PROVIDERS: Admitting Provider Internal Medicine; Emergency Provider Emergency Medicine; PCP Internal Medicine
DX: I21.4 Non-ST elevation (NSTEMI) myocardial infarction (principal); Z68.41 Body mass index [BMI] 40.0-44.9, adult; E11.65 Type 2 diabetes mellitus with hyperglycemia; I10 Essential (primary) hypertension; I48.91 Unspecified atrial fibrillation; I25.10 Atherosclerotic heart disease of native coronary artery without angina pectoris; E66.01 Morbid (severe) obesity due to excess calories; Z79.84 Long term (current) use of oral hypoglycemic drugs; Z79.85 Long-term (current) use of injectable non-insulin antidiabetic drugs; Z79.899 Other long term (current) drug therapy
CPT/HCPCS: 71045; 80048; 80053; 80061; 81001; 82962; 83036; 83880; 84443; 84484; 85025; 85027; 85379; 85610; 85730; 93005; 93306; 93454; 99152; 99153; 99285; C1894; J7030; J7040; Q9957; Q9967; A4216; C1760; C1769

== ENCOUNTER 2024-08-11 20:14 | Emergency (ER) | payer MEDICARE, SELFPAY ==
[2024-08-11 20:14] VITALS: BP 141/79; PULSE 99; RESP 19; TEMP 37; O2SAT 97
--- NOTE | 2024-08-11 20:46 | ED.VIS.FALL ---
HPI HPI - Fall History of Present Illness Chief Complaint: Fall Informant: patient and family Narrative Narrative: Presents by private vehicle after being valued by EMS from mechanical fall. Patient children sent groceries. She is picking up outside the door she stumbled bumping door frame going down. EMS was contacted. She is walking with no difficulties bilateral knee replacements in the past. Denies head injuries. She does report started having a cough yesterday. No fevers no chills. History of CABG and diabetes. Reported blood pressure 160 by EMS along with blood glucose of 180. Denies any urinary symptoms. Reported was told she had a temp of 101 forehead. [facility] Medical History Pneumothorax Diabetes Essential hypertension Morbid obesity with BMI of 40.0-44.9, adult Hyperglycemia Elevated blood pressure reading Home Medications ?Medication ?Instructions ?Recorded ?Last Taken ?Type allopurinol 100 mg tablet 100 mg PO DAILY 02/12/24 Unknown History [facility] 02/12/24 Unknown History Lite Strips) lancets 28 gauge (Freeyle 02/12/24 Unknown History Lancets) lisinopril 2.5 mg tablet 2.5 mg PO DAILY 02/12/24 Unknown History metformin 500 mg tablet 1,000 mg PO BID 02/12/24 Unknown History semaglutide 0.25 mg or 0.5 mg (2 0.5 mg subcut QWEEK 02/12/24 Unknown History mg/3 mL) subcutaneous pen injector (Ozempic) apixaban 5 mg tablet (Eliquis) 5 mg PO BID 08/11/24 Unknown History atorvastatin 40 mg tablet 40 mg PO DAILY 08/11/24 Unknown History metoprolol succinate 50 mg 50 mg PO Q12H 08/11/24 Unknown History tablet,extended release 24 hr oseltamivir 75 mg capsule (Tamiflu) 75 mg PO BID 5 days #10 caps 08/11/24 Unknown Rx torsemide 20 mg tablet 20 mg PO DAILY 08/11/24 Unknown History Allergy/AdvReac Type Severity Reaction Status Date / Time niacin AdvReac Intermediate HOT Verified 08/11/24 20:14 morphine AdvReac Mild Vomiting Verified 08/11/24 20:14 Surgical History History of open heart surgery Social History household members: none housing: house current occupational status: retired Smoking Status: Never smoker ROS ROS ED Constitutional Constitutional ED: Denies chills, fever(s) or sweats ENT ENT ED: Denies sore throat Cardiovascular Cardiovascular: Denies chest pain, leg edema, palpitations or racing heartbeat Respiratory/Chest Respiratory/Chest: Reports cough; Denies dyspnea or dyspnea on exertion Gastrointestinal Gastrointestinal: Denies abdominal pain, diarrhea, nausea or vomiting Genitourinary Genitourinary ED: Denies dysuria, hematuria or urinary frequency Musculoskeletal Musculoskeletal: Denies back pain, extremity pain or neck pain Integumentary Denies rash or wounds Neurologic Neurologic: Denies headache(s), paresthesias or weakness EXAM Physical Exam Const Vital Signs: 08/11/24 20:14 08/11/24 20:14 08/11/24 22:14 Temperature 98.6 F Temperature Source Oral Pulse Rate 99 84 Respiratory Rate 19 H 16 Respiratory Effort Normal Non-Labored Respiratory Depth Normal Respiratory Pattern Normal Blood Pressure 141/79 H 136/77 H Blood Pressure Mean 99 96 Pulse Ox 97 98 Oxygen Delivery Method Room Air Room Air 08/11/24 22:33 Temperature 98.9 F Temperature Source Pulse Rate 84 Respiratory Rate 16 Respiratory Effort Respiratory Depth Respiratory Pattern Blood Pressure 136/77 H Blood Pressure Mean 96 Pulse Ox 98 Oxygen Delivery Method Positive well nourished and well developed Constitutional Narrative: GCS 15. General Appearance ED: well developed and NAD HEENT Reports moist mucous membranes normocephalic and atraumatic Eyes General Eye ED: Yes normal appearance of both eyes Neck full ROM Chest Wall inspection of chest normal and palpation of chest normal Chest: Negative for tenderness Resp normal respiratory effort and normal air movement Effort and Inspection: symmetric chest movement; Negative for respiratory distress Cardio regular rate, regular rhythm and no murmurs Peripheral Pulses: pulses 2+ throughout GI normal to inspection, nondistended, normoactive bowel sounds and non-tender Palpation: Negative for guarding or rebound tenderness present Back/Spine Back/Spine Narrative: No midline tenderness thoracic or lumbar spine. Extremity normal to inspection Extremity Narrative: Negative logroll lower extremities. Bilateral knee scars. No tenderness in the knee soft compartments. Neuro vas intact distally. General Extremety ED: Negative for edema or tenderness General Extremity: Negative for edema Neuro oriented x3, CN's II-XII intact bilaterally and no sensory deficits noted Sensorium / Orientation: awake and alert Skin no rashes or lesions noted and no wounds MDM MDM MDM Narrative Medical decision making narrative: Interventions / MDM: Differential diagnosis: Fall with no injury, influenza Diagnosis considered but do not suspect: Pneumonia however x-ray negative. My EKG interpretation: N/A Imaging independently reviewed and interpreted by myself: 2 view chest x-ray: No acute process. External documents reviewed: BMP normal GFR from March 2024 point Test considered but not ordered:N/A ED course: Patient mechanical fall with no injuries. Vitals stable blood pressure 141/70 on arrival afebrile. No distress. Does report cough starting yesterday. She reports she was getting up throughout the night go to the restroom. Will check chest x-ray urine checked viral swabs. Chest x-ray negative. Viral swab positive for flu A. Symptoms 24 hours with comorbidities. Tamiflu started. Meds to bed. Discussed continue oral fluid for hydration. She is ambulating with no difficulties. Outpatient follow-up. All questions were answered. Re-evaluation: stable Disposition discussed with patient/family/significant other: Patient and family Case discussed with consulting clinician: N/A This note was generated with [employer] dictation software. It may contain incorrect words, spelling, and punctuation that were not noted in checking the note before signing. Radiography Diagnostic Testing: Clinical Impression(s) from Imaging Studies Chest X-Ray 08/11/24 21:00 IMPRESSION: Postsurgical changes noted within the chest, new since prior examination. No new infiltrate or consolidation is seen within the lungs. Reading Location: [id number] Discharge Plan Triage Chief Complaint: Fall ED Provider: Geremias Coley Dx/Rx/DC Orders Clinical Impression: Influenza A, Cough, Fall, CAD (coronary artery disease), Diabetes Instructions: The Flu (Influenza) Prescriptions: New oseltamivir [Tamiflu] 75 mg capsule 75 mg PO BID 5 Days Qty: 10 0RF No Action atorvastatin 40 mg tablet 40 mg PO DAILY Eliquis 5 mg tablet 5 mg PO BID metoprolol succinate 50 mg tablet extended release 24 hr 50 mg PO Q12H torsemide 20 mg tablet 20 mg PO DAILY metformin 500 mg tablet 1,000 mg PO BID (DME) FreeStyle Lite Strips Strip MISCELLANEOUS BID allopurinol 100 mg tablet 100 mg PO DAILY lisinopril 2.5 mg tablet 2.5 mg PO DAILY (DME) lancets [FreeStyle Lancets] 28 gauge misc MISCELLANEOUS BID Ozempic 0.25 mg or 0.5 mg (2 mg/3 mL) pen injector 0.5 mg subcut QWEEK Primary Care Provider: Hannah Garcia Referrals: Hannah Garcia MD [Primary Care Provider] - 1 Week Activity Restrictions/Additional Instructions: Fall with no apparent injury. Chest x-ray negative. Flu a positive. Take medication as prescribed. Continue fluids for hydration. Follow-up with your doctor. Print Language: Austrian Disposition Disposition: Home, Self Care Discharge Date/Time: 08/11/24 22:34
--- NOTE | 2024-08-11 21:00 | RAD_ITS ---
PROCEDURE: CHEST PA AND LATERAL REASON FOR EXAM: COUGH TECHNIQUE: Frontal and lateral views of the chest. COMPARISON: Chest x-ray dated 02/12/2024. FINDINGS: There are median sternotomy wires present, new since prior examination. Prosthetic device seen within the mediastinum, also new since prior examination. The cardiac silhouette is borderline prominent. No focal infiltrate or consolidation is seen. There is no pneumothorax. Degenerative changes seen within the bilateral shoulders. RAD/Chest PA and Lateral IMPRESSION: Postsurgical changes noted within the chest, new since prior examination. No n ew infiltrate or consolidation is seen within the lungs. Reading Location: [id number]
[2024-08-11 22:14] VITALS: BP 136/77; PULSE 84; RESP 16; O2SAT 98
[2024-08-11] MEDS: Oseltamivir Phosphate 75 MG Capsule PO (22:16)
[2024-08-11 22:33] VITALS: BP 136/77; PULSE 84; RESP 16; TEMP 37.2; O2SAT 98
== END 2024-08-11 22:34 | disposition home or self-care (01) ==
PROVIDERS: Emergency Provider Emergency Medicine; PCP Internal Medicine; Referring Provider Emergency Medicine; Visit Provider Emergency Medicine
DX: Z04.3 Encounter for examination and observation following other accident (principal); E11.9 Type 2 diabetes mellitus without complications; J10.1 Influenza due to other identified influenza virus with other respiratory manifestations; I25.10 Atherosclerotic heart disease of native coronary artery without angina pectoris; I10 Essential (primary) hypertension; Z95.1 Presence of aortocoronary bypass graft; Z79.01 Long term (current) use of anticoagulants; Z79.84 Long term (current) use of oral hypoglycemic drugs; Z79.899 Other long term (current) drug therapy
CPT/HCPCS: 71046; 87631; 99282

== ENCOUNTER → 2024-09-09 | Outpatient (CLI) | payer MEDICARE, SELFPAY ==
--- NOTE | 2024-09-09 08:05 | PCM.CR.HP2 ---
CR - History & Physical General Arrival date:: 09/09/24 Arrival time:: 08:05 Date of Referral:: 08/30/24 Date of CR Evaluation:: 09/09/24 Referring Physician: Dr. Silverio Primary Diagnosis: s/p CABG History of Present Cardiac Event Onset Date Coronary Artery Bypass Graft:: Yes (02/19/24 onset) Vessel: SANTANA-LAD, Ao-SVG-OM, Ao-SVG-PDA Medications Ambulatory Orders ?Medication ?Instructions ?Recorded allopurinol 100 mg tablet 100 mg PO DAILY 02/12/24 blood sugar diagnostic (FreeStyle 02/12/24 Lite Strips) lancets 28 gauge (FreeStyle 02/12/24 Lancets) lisinopril 2.5 mg tablet 2.5 mg PO DAILY 02/12/24 metformin 500 mg tablet 1,000 mg PO BID 02/12/24 semaglutide 0.25 mg or 0.5 mg (2 0.5 mg subcut QWEEK 02/12/24 mg/3 mL) subcutaneous pen injector (WinFreeCandy) apixaban 5 mg tablet (Eliquis) 5 mg PO BID 08/11/24 atorvastatin 40 mg tablet 40 mg PO DAILY 08/11/24 metoprolol succinate 50 mg 50 mg PO Q12H 08/11/24 tablet,extended release 24 hr oseltamivir 75 mg capsule (Tamiflu) 75 mg PO BID 5 days #10 caps 08/11/24 torsemide 20 mg tablet 20 mg PO DAILY 08/11/24 Allergies Allergies niacin Adverse Reaction (Intermediate, Verified 08/11/24 20:14) HOT morphine Adverse Reaction (Mild, Verified 08/11/24 20:14) Vomiting Sleep Disorder Evaluation Hx of Sleep Apnea: No Do you snore loudly (louder than talking or can be heard through closed doors)?: No Do you often feel tired/ fatigued/ sleepy during daytime?: No Has anyone observed you stop breathing during sleep?: No History of Hypertension (for STOP score): Yes STOP Results: Negative Advanced Directives Advanced Directives Do you 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 Living Will: No Advance Directives Information Provided: No Advance Directives on File: No DNR Order?:: No Past Medical History Covid-19 Screening Physicial Symptoms Other Clinical Concerns Exposure Risk Pertinent Comorbidities 65 years or older:: Yes Has a serious heart condition:: Yes Diabetic:: Yes Past Medical Illness Medical History Pneumothorax Diabetes Essential hypertension Morbid obesity with BMI of 40.0-44.9, adult Hyperglycemia Elevated blood pressure reading Past Surgical History Surgical History History of open heart surgery Social History Smoking History Smoking Status: Never smoker Alcohol Use Alcohol Usage: No Substance Abuse Hx Substance Use: No Occupation Occupation (List type of work in comments):: Retired Social Environment Status Marital Status: Current Living Arrangements Living Environment:: Alone Children How many children do you have?: 5 Do any of your children live nearby?: Yes Safety Do you feel safe in your surroundings?: Yes Assistance Do you need any assistance at home?: no Review of Systems Review of Systems Hints Review of Present Symptoms: Reports Shortness of Breath with Exertion, PVD, Wound Healing, Fatigue, Appetite - Normal, Appetite - Special Diet and Sleep - Normal; Denies Shortness of Breath at Rest, Operative Discomfort, Angina, Dizziness/Lightheadedness, Heart Arrhythmia/Irregularities or Sexual Changes Pain Is Patient Pain Free?: Yes Risk Factor Assessment Chief Complaint Chief Complaint: s/p CABG Vital Signs Pulse Ox: 95 Blood Pressure: 98/60 Pulse Pulse Rate: 87 Pulse Rhythm: Regular Hypertension How long have you been treated?: since Blood Pressure Sitting - Left Arm: 98/60 Diabetes Diabetic History: Type II Nutrition Referral for Diabetes: No Obesity Height: 5 ft 2 in Weight:: 205 lb Weight in Pounds: 205.0 lbs Body Mass Index (BMI): 37.5 Nutritional Referral for Obesity: No (Declines at this time. Has appointment at another facility.) Physical Inactivity Physical Inactivity: Recreational activity Risk Stratification Risk Guidelines: Lowest Risk: Risk Factor for Smoking, Moderate Risk: Risk Factor for Sedentary Lifestyle and Risk Factor for Depression and Highest Risk: Risk Factor for Dyslipidemia, Risk Factor for Diabetes, Risk Factor for Obesity and Risk Factor for Hypertension For Smoking Smoking Risk Guidelines For Dyslipidemia Dyslipidemia Risk Guidelines For Diabetes Mellitus Diabetes Risk Guidelines For Obesity/Overweight Obesity/Overweight Risk Guidelines For Hypertension Hypertension Risk Guidelines For Sedentary Lifestyle Sedentary Lifestyle Risk Guidelines For Depression Depression Risk Guidelines Motivation Motivation to Participate On a scale of 1 to 10, how prepared are you to commit to attending program?: 8 What do you see as barriers to successfully being able to complete the program?: nothing What do you see as the benefits of succesfully completing the program? In other words, what do you hope to get out of participating in the program?: more energy and walk better Are there issues you are dealing with that will interfere with completing the program?: no Do you have a spouse or signficant other, family or friends who will help support you to complete the program?: yes
--- NOTE | 2024-09-09 08:11 | PCM.CR.ITP ---
Diagnosis General Information Admitting Diagnosis: s/p CABG Personal Learning Style:: Audio/Visual Barriers to Learning: No Barriers Stage of change r/t lifestyle modifications:: Contemplation Gave educational material for:: Treating Heart Disease, How The Heart Works, What it means to have Heart Disease, How Coronary Artery Disease is Diagnosed, Heart Procedures, What Heart Medications Do, Risk Factors & Modifications, Living an Active Life, Nutrition, Emotions & Heart Disease, Stress Management & Relaxation and Sleep Disorders & Heart Disease Education/Goals Cardiac Rehabilitation Goals Personal Goals: Initial Assessment: Improve energy level, Get back to work, or to resume activities faster, Improve knowledge of cardiac disease, Improve muscle strength and endurance and Improve diet and eating habits (eat healthier) Scale for measuring improvement of personal goals Diagnosis & Disease Process Outcomes/Goals: Pt IDs own risk factors & lifestyle modifications by Session 10, Verbalizes symptoms of angina & response by session 3., Pt independently manages and Other Additional Outcomes/Goals: Plan/Interventions: Assist Pt to ID & engage in lifestyle modification to reduce CVD risk, Instruct on individual risk factors, Review symptoms of angina & emergency actions, Review secondary diagnosis & identify educational needs. and Other see comment 30 day Reassessments:: Not Met 30 day Reassessments:: Not Met 30 day Reassessments:: Not Met 30 day Reassessments:: Not Met Final Reassessments:: Not Met Safety Referral to Physical Therapy: No Referral to [facility] Case Management: No Fall Risk Assessed:: Yes Assistive Devices:: None Exercise - Initial Assessment Visit Date of Eval: 09/09/24 (initial eval ) Mets: Pre-: >3 METS for 30 minutes by discharge, >5 METS for 30 minutes by discharge, >7 METS for 30 minutes by discharge and Unable to meet goal due to: (see comment below) Physician Prescribed Exercise Modalities: Treadmill, Rower, Schwinn Airdyne AD-7, SciFit Stepper, SciFit Pro-II Ergometer and SciFit Lateral [place] Frequency: 3x/week for 12 weeks [36 sessions] Intensity: 60-80% of age predicted maximum heart rate reserve Duration: 30 - 45 minutes Current METSs:: 3 Target Heart Rate:: 87-109 Resting Blood Pressure: 98/60 EKG Type: NSR Outcomes & Goals Goals:: Verbalizes understanding of THR, RPE & goal METS by session 6, Documents in home exercise log/reports 30 min aerobic 5 day/wk by DC, Demonstrates accurate pulse taking by DC and Other additional outcome/goals: see below Intervention & Plan Exercise Program Goals: Instruct on personal THR & RPE, Instruct on MET level & personal MET goal, Show patient to take own pulse /validate performance until accurate, Instruct on home exercise and Other additional plan/int Physical Activity Home Exercise Physical Activity - Home Exercise: Safe Exercise, Warm-up, Self-monitoring, Cool-Down, Home Exercise > 30 min Daily and Sitting Time <3 hours/daily Outcomes & Goals Outcomes/Goals: Demonstrates correct Warm-up/exercise Cool-Down (S3) if = 2.5 METs, Verbalizes symptoms of exercise intolerance by Session 3 (S3), Demonstrate safe equipment use (S3) & follows exercise prescrition (6) and Other: See below Intervention & Plan Plan/Intervention: Instruct warm-up & cool-down if exercising at > 2 METs, Instruct on symptoms of exercise intolerance & actions to take, Instruct & monitor on saf, Assess intial functional capacity & safety risk and Other See below Nutrition - Initial Assessment Program Goals Nutrition Program Goals Patient has diagnosis of Hyperlipidemia (ICD E78)?: Yes Visit Date of Eval: 09/09/24 (initial eval ) Cholesterol/Lipids (Other Core Measures) Determine presence & major risk factors that modify LDL goal: Hypertension or hypertensive medication, Low HDL cholesterol <40 mg/dL*, Family history of premature CHD in Male < 55 years: female <65 yearsFa and Age men > 45 years; women >/= 55 years Outcomes/Goals: Pt IDs own risk factors & lifestyle modifications by Session 10, Verbalizes symptoms of angina & response by session 3., Pt independently manages and Other Additional Outcomes/Goals: Intervention/Plan: Advocate for lipid panel cholesterol medication if applicable, Instruct on personal lipid levels & lipid goals/NCEP guidelines, Instruct on cholesterol and Other additional plan/int Diabetes (Other Core Measures) Diabetes Type: Diagnosis Type II ICD-10 E11 Insulin dependent injection/pump?: No Non-Insulin Dependent?: Yes Referral to Diabetic Clinic:: No (Pt meets with her physician on a regular scheduled basis to control her BS.) Weight Mgt (Other Care) Height: 5 ft 2 in Weight:: 205 lb BMI: 37.5 Diagnosis Overweight/Obesity BMI> 30% ICD-10 E66: Yes Diagnosis High BMI/Morbid Obesity BMI> 35% ICD-10 Z68: Yes Outcomes/Goals: Pt sets, maintains & shows weight loss goal & trend during rehab and Other additional outcomes/goals Intervention/Plan: Instruct on ideal BMI & set weight loss goal w/patient, Assist pt to ID & incorporate diet changes for weight loss by S9, Refer to Structured Weight Loss program as appropriate, Encourage goal of using 250-300dcal per session for weight loss and Other additional plan/interventions Healthy Eating Habits Will attend diet classes:: Yes Outcomes/Goals:: Consume diet rich in vegs,fruits,whole grain/high fiber,fish,lean meat, Limit sat/trans fats,cholesterol & added salts & sugars and Other additional outcome/goals: Intervention/Plan:: Assess current eating habits and Other Additional plan/interventions Education Gave educational materials for:: Signs & symptoms of hypoglycemia, Signs & symptoms of hyperglycemia, Relate diabetes to coronary artery disease and Healthy eating Core - Initial Assessment Visit Date of Eval: 09/09/24 (initial eval ) Medication Compliance Preventative Medication(s):: JENARO inhibitor, Statin/lipid, Beta bill and Eliquis H/O mental health issues: depression, anxiety, or addiction?: No Doesn?t believe in the benefits of treatment?: No Believes medications are unnecessary or harmful?: No Has a concern about medication side effects?: No Expresses concern over the cost of medications?: No Outcomes/Goals: Verbalizes medications,desired effect & common side effects @ DC, Pt self-reports following medication regimen, Keeps card in wallet w/medications listed by DC and Other additional outcome/goals: Interventions/plans: Instruct on medication effects & side effects, Review medication list w/patient every two weeks, Instruct importance of taking meds as ordered & assist problem solving and Other additional Tobacco Use Tobacco Use: Non-smoker Hypertension Hypertension Diagnosis:: Hypertension ICD-10 I10 Resting Blood Pressure:: 98/60 [place] [employer] Hypertension Guidelines Outcomes/Goals: Able to verbalize/achieve optimal blood pressure <130/80, Incorporates diet changes & exercise for blood pressure control by DC and Other additional outcomes/goals Interventions/plan: Instruct on optimal blood pressure, hypertension & medications, Instruct on effects of sodium, alcohol, stress, exercise &hypertension and Other additional plan/interventions Tobacco Cessation Referral Smoking Cessation Referral:: No Individual Education/Counseling:: No Education Schedule Given:: Yes Psychosocial - Initial Assess VIsit Date of Eval: 09/09/24 (initial eval ) History of previous Mental disease:: No Target Goals Target Goals Psychosocial Test Tool Used:: Williams Hendrickson QOL Cardiac and PHQ-9 Questionnaire phq-9 Severity Referral to Behavioral Health PS - Interventions: Yes: Attend Stress Management Classes Outcomes/Goals: See list Psychosocial Outcomes/Goals:: ID's personal stressors & 2 strategies to manage stress by discharge and Other Additional outcome/goals: Intervention/Plan: See List Interventions/Plan:: Assess stressors,coping strategies & signs of derpression on admission, Instruct/assist pt to develop coping & personal stress Mgt strategies, Refer to Behavioral Health if appropriate, Refer to Physician if appropriate, Instruct patient to recognize signs & symptoms of depression, Instruct patient to recog and Other additional plan/intervention Comments:: Pt denies any psychosocial issues at this time. Patient Health Questionnaire PHQ-9 Screening Initial Assessment: 1. Little interest or pleasure in doing things: Several days 2. Feeling down, depressed, or hopeless: Not at all 3. Trouble falling or staying asleep, or sleeping too much: Several days 4. Feeling tired or having little energy: Several days 5. Poor appetite or overeating: Not at all 6. Feeling bad about yourself -- or that you are a failure or have let yourself or your family down: Not at all 7. Trouble concentrating on things, such as reading the newspaper or watching television: Not at all 8. Moving or speaking so slowly that other people could have noticed. Or the opposite - being so fidgety or restless that you have been moving around a lot more than usual: Not at all 9. Thoughts that you would be better off , or of hurting yourself in some way: Not at all How difficult have these problems made it for you to do your work, take care of things at home, or get along with other people?: Somewhat difficult Total Score: 3 GABRIEL-Q SV Test Statements CAD is a disease of the arteries in the heart: False Examples of risk factors for heart disease: True Angina is chest pain or discomfort: True The benefits of resistance training include: True Eating more meat and dairy products: I Don't Know Anti-platelet medications such as aspirin are important: True The only effective way to manage stress: False An exercise warm-up slowly increases heart rate: True Prepared, processed foods usually have high sodium: True Depression is common after a heart attack: True The statin medications lower cholesterol: True To control blood pressure, lower the amount of sodium: True If someone gets chest discomfort during walking: False Transfats are partially hydrogenated vegetable oils: True Sleep apnea that is not treated increases the risk: True To control cholesterol, one should become a vegetarian: False Someone knows if he/she is exercising at the right level: True Diabetes cannot be prevented with exercise & health eating: False Stress is a large risk for heart attack: I Don't Know A diet that can help lower blood pressure is rich in: True Total Score Total Correct Responses: 17 Self-Efficacy 6-Item Scale Initial Assessment: We would like to know how confident you are in doing certain activities. Please select your confidence level for: Fatigue Select Number: 5 Physical Discomfort or Pain Select Number: 5 Emotional Distress Select Number: 9 Other Symptoms or Health Problems Select Number: 9 Different Tasks and Activities Select Number: 7 Medication Select Number: 9 Total Score:: 7 Nutrition Survey Nutrition Survey Instructions Scoring Instructions Nutrition Survey Initial: Have you lost >10 lbs over the past 2 months without trying?: Yes Are you following a special diet at home for diabetes, low fat, or low salt?: Yes Are you interested in meeting with a dietitian for help understanding your diet?: No Do you eat less than 3 meals a day?: Yes Do you eat fatty meats (cedillo, sausage, ribs, etc), fried foods, desserts, large amounts of salad dressings, margarine, butter, or cheese most days?: No Do you have food allergies? [Enter types in comment field]: No Do you eat in restaurants more than 3 times a week?: Yes Do you season food with salt, seasoning salt, or garlic salt?: No Do you used canned, boxed, frozen meals, or soups, seasoning packets?: No Total Score:: 4 Exercise - 30-day Assessment Physician Prescribed Exercise Modalities: Treadmill, RowerJarvis AD-7, SciFit Stepper, SciFit Pro-II Ergometer and SciFit Lateral Performance Test Engineer Exercise - 60-day Assessment Physician Prescribed Exercise Modalities: Treadmill, RowerJarvisne AD-7, SciFit Stepper, SciFit Pro-II Ergometer and SciFit Lateral [place] Exercise - 90-day Assessment Physician Prescribed Exercise Modalities: Treadmill, Rower, Schwinn Airdyne AD-7, SciFit Stepper, SciFit Pro-II Ergometer and SciFit Lateral [place] Exercise - Final/Discharge Physician Prescribed Exercise Modalities: Treadmill, Rower, Schwinn Airdyne AD-7, SciFit Stepper, SciFit Pro-II Ergometer and SciFit Lateral Performance Test Engineer Frequency: 3x/week for 12 weeks [36 sessions] Intensity: 60-80% of age predicted maximum heart rate reserve Current METSs:: 3 Target Heart Rate:: 87-109 Nutrition - 30-Day Assessment Weight Mgt (Other Care) Height: 5 ft 2 in Weight:: 205 lb BMI: 37.5 Nutrition - 60-Day Assessment Weight Mgt (Other Care) Height: 5 ft 2 in Weight:: 205 lb BMI: 37.5 Core - Final Assessment Hypertension Resting Blood Pressure:: 98/60 [place] [employer] Hypertension Guidelines Core - 60-Day Assessment Hypertension Resting Blood Pressure:: 98/60 [place] [employer] Hypertension Guidelines Psychosocial - 30-Day Assess Target Goals Target Goals Referral to Behavioral Health PS - Interventions: Yes: Attend Stress Management Classes Psychosocial - 60-Day Assess Target Goals Target Goals Referral to Behavioral Health PS - Interventions: Yes: Attend Stress Management Classes Psychosocial - 90-Day Assess Target Goals Target Goals Referral to Behavioral Health PS - Interventions: Yes: Attend Stress Management Classes Psychosocial - Final Assessmen Target Goals Target Goals Referral to Behavioral Health PS - Interventions: Yes: Attend Stress Management Classes Nutrition - 90-Day Assessment Weight Mgt (Other Care) Height: 5 ft 2 in Weight:: 205 lb BMI: 37.5 Nutrition - Final Assessment Program Goals Patient has diagnosis of Hyperlipidemia (ICD E78)?: Yes Weight Mgt (Other Care) Height: 5 ft 2 in Weight:: 205 lb BMI: 37.5
[2024-09-09 08:26] VITALS: PULSE 87; O2SAT 95; BMI 37.5
[2024-09-09 08:33] VITALS: BP 98/60
[2024-09-09 09:12] VITALS: BP 98/60; BMI 37.5
== END | disposition home or self-care (01) ==
PROVIDERS: PCP Internal Medicine; Referring Provider Nurse Practitioner Family; Visit Provider Nurse Practitioner Family
DX: I25.10 Atherosclerotic heart disease of native coronary artery without angina pectoris (principal); Z95.1 Presence of aortocoronary bypass graft

== ENCOUNTER 2024-09-28 14:15 | Outpatient (RCR) | payer MEDICARE, SELFPAY ==
[2024-09-09 09:12] VITALS: BMI 37.5
== END 2024-09-28 23:59 ==
LOC: CR 14:15
PROVIDERS: PCP Internal Medicine; Referring Provider Nurse Practitioner Family; Visit Provider Nurse Practitioner Family
DX: Z95.1 Presence of aortocoronary bypass graft (principal); I25.10 Atherosclerotic heart disease of native coronary artery without angina pectoris
CPT/HCPCS: 93798

== ENCOUNTER 2024-10-06 08:50 | Outpatient (RCR) | payer SELFPAY ==
[2024-09-09 09:12] VITALS: BMI 37.5
== END 2024-10-29 23:59 ==
LOC: NS 08:50
PROVIDERS: PCP Internal Medicine
DX: Z71.3 Dietary counseling and surveillance (principal)

== ENCOUNTER 2024-10-12 10:37 | Emergency (ER) | payer MEDICARE, SELFPAY ==
[2024-10-07 09:22] VITALS: BMI 38.0
[2024-10-12 10:38] VITALS: BP 137/102; PULSE 88; RESP 16; TEMP 36.6; O2SAT 96
[2024-10-12 10:40] VITALS: BMI 38.7
--- NOTE | 2024-10-12 11:05 | CT_ITS ---
PROCEDURE: BRAIN/HEAD WITHOUT CONTRAST 10/12/2024 REASON FOR EXAM: DIZZINESS TECHNIQUE: Head CT without intravenous contrast. Coronal and Sagittal reconstruction series were provided. One or more dose reduction techniques were used (e.g., Automated exposure control, adjustment of the mA and/or kV according to patient size, use of iterative reconstruction technique. RADIATION DOSE SUMMARY: CTDlvol: 44.99 mGy DLP: 796.11 mGycm COMPARISON: None FINDINGS: Brain: Low density in the periventricular white matter suggests mild chronic small vessel ischemic changes. CSF Spaces: Mild generalized cerebral atrophy Sinuses/Mastoids: Clear at visualized levels Bones: Unremarkable CT/Brain/Head without Contrast IMPRESSION: CHRONIC CHANGES. NO ACUTE FINDINGS. Reading Location: [id number]
--- NOTE | 2024-10-12 11:05 | EKG12_ITS ---
Test Reason : Blood Pressure : */* mmHG Vent. 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
--- NOTE | 2024-10-12 11:07 | EX.ED.DYSGE1 ---
HPI History of Present Illness Chief Complaint: Dizziness Detail of Chief Complaint: Dizziness Informant: patient Narrative Narrative: Patient presents with complaint of dizziness and not feeling well for the last 2 days. Patient states her head just did not feel right for 2 days and felt somewhat lightheaded. Today got up and sat on the side of the bed before getting up because she did not feel right and then went to the bathroom and describes vertiginous type symptoms. Symptoms worse with head position. She denies ringing in her ears. She denies hearing loss. She denies recent fall or head trauma. She is on Eliquis for history of A-fib. She has history of coronary artery disease. She denies any chest pain. Denies recent illness. [facility] Medical History Pneumothorax Diabetes Essential hypertension Morbid obesity with BMI of 40.0-44.9, adult Hyperglycemia Elevated blood pressure reading Home Medications ?Medication ?Instructions ?Recorded ?Last Taken ?Type allopurinol 100 mg tablet 100 mg PO DAILY 02/12/24 10/11/24 [facility] Unknown History Lite Strips) lancets 28 gauge (FreeStyle 02/12/24 Unknown History Lancets) lisinopril 2.5 mg tablet 2.5 mg PO DAILY 02/12/24 10/11/24 History metformin 500 mg tablet 500 mg PO BID 02/12/24 10/11/24 History semaglutide 0.25 mg or 0.5 mg (2 0.5 mg subcut QWEEK 02/12/24 10/11/24 History mg/3 mL) subcutaneous pen injector (Ozempic) apixaban 5 mg tablet (Eliquis) 5 mg PO BID 08/11/24 10/11/24 History atorvastatin 40 mg tablet 40 mg PO QHS 08/11/24 10/11/24 History metoprolol succinate 50 mg 50 mg PO BID 08/11/24 10/11/24 History tablet,extended release 24 hr torsemide 20 mg tablet 20 mg PO DAILY PRN edema 08/11/24 Unknown History acetaminophen 500 mg tablet 500 - 1,000 mg PO Q6H PRN fever or 10/12/24 10/11/24 History (Acetaminophen Extra Strength) pain calcium carbonate (Calcium 500) 500 mg PO BID 10/12/24 Unknown History meclizine 25 mg chewable tablet 25 mg PO TID PRN dizziness #14 tabs 10/12/24 Unknown Rx (Travel-Ease (meclizine)) omega 1-uxh-yfw-fish oil 1,200 mg 1 cap PO BID 10/12/24 Unknown History (144 mg-216 mg) capsule (Fish Oil) ondansetron 4 mg disintegrating 4 mg PO Q8H PRN PRN Nausea #10 tabs 10/12/24 Unknown Rx tablet Allergy/AdvReac Type Severity Reaction Status Date / Time niacin AdvReac Intermediate HOT Verified 10/12/24 10:40 morphine AdvReac Mild Vomiting Verified 10/12/24 10:40 Surgical History History of open heart surgery Social History household members: none housing: house current occupational status: retired Smoking Status: Never smoker ROS ROS ED Review of Systems ROS Unobtainable: other Constitutional Constitutional ED: Reports lethargy; Denies chills, fever(s), sweats or weight loss Eyes Eyes: Denies blurry vision, change in vision or diplopia ENT ENT ED: Denies rhinorrhea or sore throat Cardiovascular Cardiovascular: Denies chest pain, orthopnea or racing heartbeat Respiratory/Chest Respiratory/Chest: Denies cough, dyspnea, dyspnea on exertion, orthopnea or sputum Gastrointestinal Gastrointestinal: Denies abdominal pain, diarrhea, nausea or vomiting Genitourinary Genitourinary ED: Denies dysuria, hematuria or urinary frequency Musculoskeletal Musculoskeletal: Denies arthralgias, back pain, myalgias or neck pain Integumentary Denies abscess, Abrasions or rash Neurologic Neurologic: Reports other Details: Dizziness ; Denies headache(s) or weakness Psychiatric Psychiatric: Denies anxiety, depression or suicidal thoughts Endocrine Endocrinology: Denies polydipsia, polyphagia or polyuria Hematologic/Lymphatic Hematologic/Lymphatic: Denies easy bleeding, easy bruising or lymphadenopathy Allergic/Immunologic Allergic/Immunologic ED: Denies mouth swelling, tongue swelling or urticaria EXAM Physical Exam Const Vital Signs: 10/12/24 10:38 10/12/24 12:38 10/12/24 13:05 Temperature 97.9 F Temperature Source Oral Pulse Rate 88 86 Pulse Rate [Lying] 86 Pulse Rate [Sitting (for 1 minute prior to obtaining)] 92 Pulse Rate [Standing (for 1 minute prior to obtaining)] 94 Respiratory Rate 16 16 Blood Pressure 137/102 H 136/84 H Blood Pressure [Lying] 117/73 Blood Pressure [Sitting (for 1 minute prior to obtaining)] 140/89 H Blood Pressure [Standing (for 1 minute prior to obtaining)] 158/96 H Blood Pressure Mean 113 101 Blood Pressure Mean [Lying] 87 Blood Pressure Mean [Sitting (for 1 minute prior to obtaining)] 106 Blood Pressure Mean [Standing (for 1 minute prior to obtaining)] 116 Pulse Ox 96 96 Oxygen Delivery Method Room Air Room Air Positive well nourished and well developed General Appearance ED: well developed and NAD HEENT Reports TM's clear and moist mucous membranes normocephalic and atraumatic; Negative for trauma or tenderness Tympanic Membrane ED: Yes TM's clear Eyes PERRL and EOMs intact bilaterally General Eye ED: Negative for pale conjunctiva or scleral icterus Neck no lymphadenopathy, supple and no JVD General: Negative for tenderness Chest Wall inspection of chest normal and palpation of chest normal Chest: Negative for tenderness Resp normal respiratory effort and clear to auscultation bilaterally Effort and Inspection: Negative for respiratory distress or pain with movement Auscultation: Negative for rhonchi, wheezes or diminished lung sounds Cardio regular rate, regular rhythm, S1 normal heart sound, S2 normal heart sound and no murmurs Peripheral Pulses: pulses 2+ throughout GI normal to inspection, nondistended, normoactive bowel sounds, soft to palpation, non-tender, non-distended and no masses Back/Spine no CVA tenderness and no thoracic nor lumbar tenderness Extremity normal to inspection General Extremety ED: Negative for edema General Extremity: Negative for edema Neuro oriented x3, CN's II-XII intact bilaterally, no sensory deficits noted and gait normal Neuro Narrative: Finger-nose and heel matthews testing within normal limits, negative Romberg, negative pronator drift, fundi benign. Hallpike maneuver performed and there was no nystagmus. Somewhat symptomatic with head turn to the right. Sensorium / Orientation: awake, alert, oriented to person, oriented to place and oriented to time Motor Exam: strength 5/5 throughout and strength abnormal Psych mental status grossly normal Skin no rashes or lesions noted and no wounds MDM MDM MDM Narrative Medical decision making narrative: Patient presents with dizziness that she started 2 days ago and worsened this morning. Complains of vertiginous symptoms and head position making symptoms worse. 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 She denies chest pain or palpitations or racing heart. In the differential would be peripheral vertigo much less likely to be central. IV line established. CBC with differential obtained showing an of 8.0 with hemoglobin 12.3 and platelet count of 258. Chemistries unremarkable. First troponin was minimally elevated 19. Delta troponin 2-hour was 16. Urinalysis without signs of infection. EKG obtained arrival shows sinus rhythm with rate of 86 bpm with old septal infarct noted. Also old anterior infarct noted. CT scan of the brain was obtained to rule out acute intracranial process such as hemorrhage. CT brain was essentially unremarkable. While in department she was medicated with Antivert 25 mg p.o. She had good symptom relief with that. She was able to ambulate without difficulty after. At this point suspect likely benign positional vertigo. Will order prescription for Antivert as well as Zofran for home. Advised to follow-up with primary care physician next 3 to 5 days. Will also refer to ENT. Lab Data Attestation: I reviewed the patient's lab results. Labs: Laboratory Results - last 24 hr 10/12/24 10/12/24 10/12/24 11:18 12:58 13:38 WBC 8.0 RBC 4.43 Hgb 12.3 Hct 39.3 MCV 88.7 MCH 27.8 MCHC 31.3 L RDW Std Deviation 47.1 H RDW Coeff of Renae 14.5 Plt Count 258 MPV 10.0 Immature Gran % (Auto) 0.200 Neut % (Auto) 63.1 Lymph % (Auto) 27.8 [place] % (Auto) 5.7 Eos % (Auto) 2.5 Baso % (Auto) 0.7 Absolute Neuts (auto) 5.1 Absolute Lymphs (auto) 2.23 Nucleated RBC % 0 Sodium 138 Potassium 4.5 Chloride 103 Carbon Dioxide 23.9 Anion Gap 11 BUN 13 Creatinine 0.77 Estim Creat Clear Calc 65.67 Est GFR (MDRD) Non-Af 80 BUN/Creatinine Ratio 17.3 Glucose 131 H Calcium 9.3 Troponin T High Sens 19 H Troponin T Hi Sens 2 Hr 16 H Urine Color Yellow Urine Clarity Sl. Cloudy Urine pH 6.5 Ur Specific [place] 1.010 Urine Protein 15 H Urine Glucose (UA) Normal Urine Ketones Negative Urine Occult Blood Negative Urine Nitrite Negative Urine Bilirubin Negative Urine Urobilinogen Normal Ur Leukocyte Esterase 500 H Urine RBC 0 SEEN Urine WBC 5-10 SEEN Ur Squamous Epith Cells 0-5 SEEN Urine Bacteria 0 SEEN Urine Mucus 0 SEEN Radiography Diagnostic Testing: Clinical Impression(s) from Imaging Studies Brain CT 10/12/24 11:05 IMPRESSION: CHRONIC CHANGES. NO ACUTE FINDINGS. Reading Location: [facility] EKG Initial EKG: Attestation: I personally reviewed and interpreted this EKG as follows: Comments: Sinus rhythm with ventricular rate of 86 bpm with old inferior and old septal infarct Prior EKG tracings: available for review Prior: Changed Discharge Plan Triage Chief Complaint: Dizziness ED Provider: Vasu [facility] Dx/Rx/DC Orders Clinical Impression: Benign paroxysmal positional vertigo Instructions: ED BPV Vertigo Prescriptions: New meclizine [Travel-Ease (meclizine)] 25 mg tablet,chewable 25 mg PO TID PRN (Reason: dizziness) Qty: 14 0RF ondansetron 4 mg tablet,disintegrating 4 mg PO Q8H PRN PRN (Reason: Nausea) Qty: 10 0RF No Action atorvastatin 40 mg tablet 40 mg PO QHS Eliquis 5 mg tablet 5 mg PO BID metoprolol succinate 50 mg tablet extended release 24 hr 50 mg PO BID torsemide 20 mg tablet 20 mg PO DAILY PRN (Reason: edema) metformin 500 mg tablet 500 mg PO BID (DME) FreeStyle Lite Strips Strip MISCELLANEOUS BID allopurinol 100 mg tablet 100 mg PO DAILY lisinopril 2.5 mg tablet 2.5 mg PO DAILY (DME) lancets [FreeStyle Lancets] 28 gauge misc MISCELLANEOUS BID Ozempic 0.25 mg or 0.5 mg (2 mg/3 mL) pen injector 0.5 mg subcut QWEEK Patient Comments: PT TAKES ON TUESDAYS calcium carbonate [Calcium 500] 500 mg calcium (1,250 mg) tablet,chewable 500 mg PO BID Patient Comments: PT TAKES WHEN SHE REMEMBERS omega 2-pqr-fzt-fish oil [Fish Oil] 1,200 (144-216) mg capsule 1 cap PO BID Patient Comments: PT TAKS WHEN SHE REMEMBERS acetaminophen [Acetaminophen Extra Strength] 500 mg tablet 500 - 1,000 mg PO Q6H PRN (Reason: fever or pain) Patient Comments: PT TAKES 2 IN THE MORNING AND 1 AT NIGHT Primary Care Provider: Hannah Garcia Referrals: Rick Collins MD [Med Staff - Active Staff] - 3-5 Days Hannah Garcia MD [Primary Care Provider] - 3-5 Days Print Language: Czech Disposition Disposition: Home, Self Care
[2024-10-12] MEDS: Meclizine HCl 25 MG Tablet PO (11:17)
[2024-10-12] MEDS: 0.9% Normal Saline (1000mL) 1,000 ML 150 ML IV (11:17)
[2024-10-12 11:27] LABS: Absolute Lymphocyte Count 2.23 X10^3/uL (0.83-4.51); Absolute Neutrophil Count 5.1 X10^3/uL (2.0-7.7); Basophil# 0.06 X10^3/uL; Basophil% 0.7 % (0-1); Eosinophils% 2.5 % (0-5); Hematocrit 39.3 % (37-47); Hemoglobin 12.3 g/dL (12.0-15.0); Lymphocyte # 2.23 X10^3/ul (0.83-4.51); Lymphocyte % 27.8 % (19-41); Mean Corp Hgb Conc 31.3 g/dL (32-36); Mean Corpuscular Hgb 27.8 pg (27.0-32.0); Mean Corpuscular Volume 88.7 fL (81-99); Monocyte# 0.46 X10^3/uL; Monocyte% 5.7 % (0-10); NRBC Flagged by Analyzer 0 % (0-5); Neutrophil # 5.06 X10^3/uL (2.7-7.7); Neutrophil % 63.1 % (47-70); Platelet Count 258 K/mm3 (150-450); RBC Distribution Width CV 14.5 % (11.6-14.6); RBC Distribution Width SD 47.1 fl (35.1-43.9); Red Blood Count 4.43 M/mm3 (4.2-5.4)
[2024-10-12 12:34] LABS: Anion Gap 11 (5-15); BUN 13 mg/dL (4-19); BUN/Creat Ratio 17.3 RATIO (10-20); Calcium,Total 9.3 mg/dL (7.6-11.0); Carbon Dioxide 23.9 mmol/L (21.0-32.0); Chloride 103 mmol/L (98-108); Creatinine, Serum 0.77 mg/dL (0.70-1.20); EST Glomerular Filtration Rate 80 (>60); Estimated Creatinine Clearance 65.67 ml/min (50-250); Glucose 131 mg/dL (70-99); Potassium 4.5 mmol/L (3.3-5.1); Sodium Level 138 mmol/L (133-145); Troponin T High Sensitivity 19 ng/L (<=14)
[2024-10-12 12:38] VITALS: BP 117/73; BP 140/89; BP 158/96; PULSE 86; PULSE 92; PULSE 94
[2024-10-12 13:05] VITALS: BP 136/84; PULSE 86; RESP 16; O2SAT 96
[2024-10-12 13:16] LABS: Bacteria 0 SEEN /hpf (None Seen); Mucous, Urine 0 SEEN /hpf (<or=2+); Red Blood Cells-Urine 0 SEEN /hpf (0-5)
[2024-10-12 13:20] LABS: Color, Urine Yellow (Yellow); Glucose, Dipstick Normal (Normal); Ketone-Dipstick Negative (Negative); Leukocyte Esterase-Dipstick 500 /ul (Negative); Nitrite-Dipstick Negative (Negative); Occult Blood-Urine Negative /ul (Negative); Protein-Dipstick 15 mg/dl (Negative); Urine Bilirubin Dipstick Negative (Negative); Urine Clarity Sl. Cloudy (Clear); Urine Urobilinogen Normal (Normal); Urine pH 6.5 (5.0 - 8.0)
[2024-10-12 13:29] LABS: Squamous Epithelial Cells - UA 0-5 SEEN /hpf (5-10); White Blood Cells 5-10 SEEN /hpf (0-5)
[2024-10-12 14:28] LABS: Troponin T High Sens 2 HR 16 ng/L (<=14)
[2024-10-12 15:20] VITALS: BP 130/81; PULSE 86; RESP 12; TEMP 36.6; O2SAT 96
== END 2024-10-12 15:35 | disposition home or self-care (01) ==
PROVIDERS: Emergency Provider Emergency Medicine; PCP Internal Medicine; Visit Provider Emergency Medicine
DX: H81.10 Benign paroxysmal vertigo, unspecified ear (principal); I48.91 Unspecified atrial fibrillation; E11.9 Type 2 diabetes mellitus without complications; I25.10 Atherosclerotic heart disease of native coronary artery without angina pectoris; I10 Essential (primary) hypertension; Z79.01 Long term (current) use of anticoagulants; Z79.899 Other long term (current) drug therapy; Z79.84 Long term (current) use of oral hypoglycemic drugs; Z79.85 Long-term (current) use of injectable non-insulin antidiabetic drugs; Z95.1 Presence of aortocoronary bypass graft
CPT/HCPCS: 70450; 80048; 81001; 84484; 85025; 93005; 96360; 96361; 99285; A4216

== ENCOUNTER 2024-10-28 14:15 | Outpatient (RCR) | payer MEDICARE, SELFPAY ==
[2024-09-09 09:12] VITALS: BMI 37.5
--- NOTE | 2024-10-07 09:07 | CR.ITP_ITS ---
Exercise - Initial Assessment Visit Session #:: 11 Physician Prescribed Exercise Modalities: SciFit Stepper, SciFit Pro-II Ergometer and SciFit Lateral [place] Nutrition - Initial Assessment Weight Mgt (Other Care) Height: 5 ft 2 in Weight:: 208 lb BMI: 38.0 Psychosocial - Initial Assess Target Goals Target Goals Referral to Behavioral Health PS - Interventions: Yes: Attend Stress Management Classes Patient Health Questionnaire PHQ-9 Screening 30-Day Re-eval Assessment: 1. Little interest or pleasure in doing things: Several days 2. Feeling down, depressed, or hopeless: Not at all 3. Trouble falling or staying asleep, or sleeping too much: Several days 4. Feeling tired or having little energy: Several days 5. Poor appetite or overeating: Not at all 6. Feeling bad about yourself -- or that you are a failure or have let yourself or your family down: Not at all 7. Trouble concentrating on things, such as reading the newspaper or watching television: Not at all 8. Moving or speaking so slowly that other people could have noticed. Or the opposite - being so fidgety or restless that you have been moving around a lot more than usual: Not at all 9. Thoughts that you would be better off , or of hurting yourself in some way: Not at all How difficult have these problems made it for you to do your work, take care of things at home, or get along with other people?: Somewhat difficult Total Score: 3 Self-Efficacy 6-Item Scale 30-Day Re-eval Assessment: We would like to know how confident you are in doing certain activities. Please select your confidence level for: Fatigue Select Number: 5 Physical Discomfort or Pain Select Number: 5 Emotional Distress Select Number: 9 Other Symptoms or Health Problems Select Number: 9 Different Tasks and Activities Select Number: 7 Medication Select Number: 9 Total Score:: 7 Nutrition Survey Nutrition Survey Instructions Scoring Instructions Exercise - 30-day Assessment Visit Date of Eval: 10/07/24 Session #:: 11 Physician Prescribed Exercise Modalities: SciFit Stepper, SciFit Pro-II Ergometer and SciFit Lateral [place] Frequency: 3x/week for 12 weeks [36 sessions] Intensity: 60-80% of age predicted maximum heart rate reserve Duration: 30 - 45 minutes Current METSs:: 3.2 Target Heart Rate:: 87-109 Current RPE:: 12 Maximum Excercise HR:: 101 Resting Blood Pressure: 139/85 Maximum Exercise Blood Pressure: 150/90 EKG Type: NSR to ST with rare pac, pvc Outcomes & Goals Goals:: Verbalizes understanding of THR, RPE & goal METS by session 6, Documents in home exercise log/reports 30 min aerobic 5 day/wk by DC, Demonstrates accurate pulse taking by DC and Other additional outcome/goals: see below Intervention & Plan Exercise Program Goals: Instruct on personal THR & RPE, Instruct on MET level & personal MET goal, Show patient to take own pulse /validate performance until accurate, Instruct on home exercise and Other additional plan/int Physical Activity Home Exercise Physical Activity - Home Exercise: Safe Exercise, Warm-up, Self-monitoring, Cool-Down, Home Exercise > 30 min Daily and Sitting Time <3 hours/daily Outcomes & Goals Outcomes/Goals: Demonstrates correct Warm-up/exercise Cool-Down (S3) if = 2.5 METs, Verbalizes symptoms of exercise intolerance by Session 3 (S3), Demonstrate safe equipment use (S3) & follows exercise prescrition (6) and Other: See below Intervention & Plan Plan/Intervention: Instruct warm-up & cool-down if exercising at > 2 METs, Instruct on symptoms of exercise intolerance & actions to take, Instruct & monitor on saf, Assess intial functional capacity & safety risk and Other See below 30-day Reassessments 30 day Reassessments:: Progressing Reassessment Notes & Comments:: RPE explained to pt. Pt demonstrates understanding in her daily sessions. 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 Nutrition - 30-Day Assessment Program Goals Nutrition Program Goals Patient has diagnosis of Hyperlipidemia (ICD E78)?: Yes Visit Date of Eval: 10/07/24 Session #:: 11 Cholesterol/Lipids (Other Core Measures) Determine presence & major risk factors that modify LDL goal: Hypertension or hypertensive medication, Low HDL cholesterol <40 mg/dL*, Family history of premature CHD in Male < 55 years: female <65 yearsFa and Age men > 45 years; women >/= 55 years Outcomes/Goals: Pt IDs own risk factors & lifestyle modifications by Session 10, Verbalizes symptoms of angina & response by session 3., Pt independently manages and Other Additional Outcomes/Goals: Intervention/Plan: Advocate for lipid panel cholesterol medication if applicable, Instruct on personal lipid levels & lipid goals/NCEP guidelines, Instruct on cholesterol and Other additional plan/int Diabetes (Other Core Measures) Diabetes Type: Not Applicable Weight Mgt (Other Care) Height: 5 ft 2 in Weight:: 208 lb BMI: 38.0 Diagnosis Overweight/Obesity BMI> 30% ICD-10 E66: Yes Diagnosis High BMI/Morbid Obesity BMI> 35% ICD-10 Z68: Yes Outcomes/Goals: Pt sets, maintains & shows weight loss goal & trend during rehab and Other additional outcomes/goals Intervention/Plan: Instruct on ideal BMI & set weight loss goal w/patient, Assist pt to ID & incorporate diet changes for weight loss by S9, Refer to Structured Weight Loss program as appropriate, Encourage goal of using 250- 300dcal per session for weight loss and Other additional plan/interventions 30 day Reassessments:: Progressing Reassessment Notes & Comments:: Pt will be attending nutrition class. Healthy Eating Habits Will attend diet classes:: Yes Outcomes/Goals:: Consume diet rich in vegs,fruits,whole grain/high fiber,fish,lean meat, Limit sat/trans fats,cholesterol & added salts & sugars and Other additional outcome/goals: Intervention/Plan:: Assess current eating habits and Other Additional plan/interventions 30-day Reassessments:: Progressing Reassessment Notes & Comments:: Pt is scheduled to attend nutrition class. Heart healthy low sodium diet will be encouraged and explained. Education Gave educational materials for:: Signs & symptoms of hypoglycemia, Signs & symptoms of hyperglycemia, Relate diabetes to coronary artery disease and Healthy eating Nutrition - 60-Day Assessment Weight Mgt (Other Care) Height: 5 ft 2 in Weight:: 208 lb BMI: 38.0 Core - 30-Day Assessment Visit Date of Eval: 10/07/24 Session #:: 11 Medication Compliance Preventative Medication(s):: JENARO inhibitor, Statin/lipid, Beta bill and Eliquis H/O mental health issues: depression, anxiety, or addiction?: No Doesn?t believe in the benefits of treatment?: No Believes medications are unnecessary or harmful?: No Has a concern about medication side effects?: No Expresses concern over the cost of medications?: No Outcomes/Goals: Verbalizes medications,desired effect & common side effects @ DC, Pt self-reports following medication regimen, Keeps card in wallet w/medications listed by DC and Other additional outcome/goals: Interventions/plans: Instruct on medication effects & side effects, Review medication list w/patient every two weeks, Instruct importance of taking meds as ordered & assist problem solving and Other additional 30-day Reassessments:: Met Reassessment Notes & Comments:: Pt is taking meds as prescribed. Tobacco Use Tobacco Use: Non-smoker Hypertension Hypertension Diagnosis:: Hypertension ICD-10 I10 Resting Blood Pressure:: 139/85 [place] [employer] Hypertension Guidelines Peak Exercise Blood Pressure:: 150/90 Outcomes/Goals: Able to verbalize/achieve optimal blood pressure <130/80, Incorporates diet changes & exercise for blood pressure control by DC and Other additional outcomes/goals Interventions/plan: Instruct on optimal blood pressure, hypertension & medicatio ns, Instruct on effects of sodium, alcohol, stress, exercise &hypertension and Other additional plan/interventions 30 day Reassessments:: Progressing Reassessment Notes & Comments:: Last several sessions the pt's BP's have been elevated. Prior to this they have been within AHA normal limits. Will continue to monitor and report to the pt's physician if necessary. Tobacco Cessation Referral Smoking Cessation Referral:: No Individual Education/Counseling:: No Education Schedule Given:: Yes Psychosocial - 30-Day Assess VIsit Date of Eval: 10/07/24 Session #:: 11 History of previous Mental disease:: No Target Goals Target Goals Psychosocial Test Tool Used:: [employer] QOL Cardiac and PHQ-9 Questionnaire phq-9 Severity See PHQ-9 Score: 3 Referral to Behavioral Health PS - Interventions: Yes: Attend Stress Management Classes Outcomes/Goals: See list Psychosocial Outcomes/Goals:: ID's personal stressors & 2 strategies to manage stress by discharge and Other Additional outcome/goals: Intervention/Plan: See List Interventions/Plan:: Assess stressors,coping strategies & signs of derpression on admission, Instruct/assist pt to develop coping & personal stress Mgt strategies, Refer to Behavioral Health if appropriate, Refer to Physician if appropriate, Instruct patient to recognize signs & symptoms of depression, Instruct patient to recog and Other additional plan/intervention 30-day Reassessments: 30 day Reassessments:: Progressing Reassessment Notes & Comments:: Pt to attend stress management class. Pt denies any psychosocial issues at this time. Psychosocial - 60-Day Assess Target Goals Target Goals Referral to Behavioral Health PS - Interventions: Yes: Attend Stress Management Classes Outcomes/Goals: See list Psychosocial Outcomes/Goals:: ID's personal stressors & 2 strategies to manage stress by discharge and Other Additional outcome/goals: Psychosocial - 90-Day Assess Target Goals Target Goals Referral to Behavioral Health PS - Interventions: Yes: Attend Stress Management Classes Psychosocial - Final Assessmen Target Goals Target Goals Referral to Behavioral Health PS - Interventions: Yes: Attend Stress Management Classes Nutrition - 90-Day Assessment Weight Mgt (Other Care) Height: 5 ft 2 in Weight:: 208 lb BMI: 38.0 Nutrition - Final Assessment Weight Mgt (Other Care) Height: 5 ft 2 in Weight:: 208 lb BMI: 38.0
[2024-10-07 09:22] VITALS: BP 139/85; BMI 38.0
== END 2024-10-29 23:59 ==
LOC: CR 14:15
PROVIDERS: PCP Internal Medicine; Referring Provider Nurse Practitioner Family; Visit Provider Nurse Practitioner Family
DX: Z95.1 Presence of aortocoronary bypass graft (principal); I25.10 Atherosclerotic heart disease of native coronary artery without angina pectoris
CPT/HCPCS: 93798

== ENCOUNTER 2024-11-28 14:15 | Outpatient (RCR) | payer MEDICARE, SELFPAY ==
[2024-10-07 09:22] VITALS: BMI 38.0
[2024-10-30 00:20] VITALS: BP 139/85
[2024-10-30 00:22] VITALS: BMI 37.5
--- NOTE | 2024-11-04 11:16 | CR.ITP_ITS ---
Exercise - Initial Assessment Physician Prescribed Exercise Modalities: SciFit Stepper, SciFit Pro-II Ergometer and SciFit Lateral Doctor Of Pharmacy Nutrition - Initial Assessment Weight Mgt (Other Care) Height: 5 ft 2 in Weight:: 207 lb 8 oz BMI: 37.9 Core - Initial Assessment Hypertension Resting Blood Pressure:: 130/72 [employer] [place] [employer] Hypertension Guidelines Psychosocial - Initial Assess Target Goals Target Goals Referral to Behavioral Health PS - Interventions: Yes: Attend Stress Management Classes Patient Health Questionnaire PHQ-9 Screening 60-Day Re-eval Assessment: 1. Little interest or pleasure in doing things: Several days 2. Feeling down, depressed, or hopeless: Not at all 3. Trouble falling or staying asleep, or sleeping too much: Several days 4. Feeling tired or having little energy: Several days 5. Poor appetite or overeating: Not at all 6. Feeling bad about yourself -- or that you are a failure or have let yourself or your family down: Not at all 7. Trouble concentrating on things, such as reading the newspaper or watching television: Not at all 8. Moving or speaking so slowly that other people could have noticed. Or the opposite - being so fidgety or restless that you have been moving around a lot more than usual: Not at all 9. Thoughts that you would be better off , or of hurting yourself in some way: Not at all How difficult have these problems made it for you to do your work, take care of things at home, or get along with other people?: Somewhat difficult Total Score: 3 Self-Efficacy 6-Item Scale 60-Day Re-eval Assessment: We would like to know how confident you are in doing certain activities. Please select your confidence level for: Fatigue Select Number: 5 Physical Discomfort or Pain Select Number: 5 Emotional Distress Select Number: 9 Other Symptoms or Health Problems Select Number: 9 Different Tasks and Activities Select Number: 7 Medication Select Number: 9 Total Score:: 7 Nutrition Survey Nutrition Survey Instructions Scoring Instructions Exercise - 30-day Assessment Physician Prescribed Exercise Modalities: SciFit Stepper, SciFit Pro-II Ergometer and SciFit Lateral [place] Exercise - 60-day Assessment Visit Date of Eval: 11/04/24 Session #:: 20 Physician Prescribed Exercise Modalities: SciFit Stepper, SciFit Pro-II Ergometer and SciFit Lateral Doctor Of Pharmacy Frequency: 3x/week for 12 weeks [36 sessions] Intensity: 60-80% of age predicted maximum heart rate reserve Duration: 30 - 45 minutes Current METSs:: 4 Target Heart Rate:: 87-109 Current RPE:: 12-12.5 Maximum Excercise HR:: 104 Resting Blood Pressure: 124/78 Maximum Exercise Blood Pressure: 122/76 EKG Type: NSR to ST w/ rare pac, rare multifocal pvc. Outcomes & Goals Goals:: Verbalizes understanding of THR, RPE & goal METS by session 6, Documents in home exercise log/reports 30 min aerobic 5 day/wk by DC, Demonstrates accurate pulse taking by DC and Other additional outcome/goals: see below Intervention & Plan Exercise Program Goals: Instruct on personal THR & RPE, Instruct on MET level & personal MET goal, Show patient to take own pulse /validate performance until accurate, Instruct on home exercise and Other additional plan/int Physical Activity Home Exercise Physical Activity - Home Exercise: Safe Exercise, Warm-up, Self-monitoring, Cool-Down, Home Exercise > 30 min Daily and Sitting Time <3 hours/daily Outcomes & Goals Outcomes/Goals: Demonstrates correct Warm-up/exercise Cool-Down (S3) if = 2.5 METs, Verbalizes symptoms of exercise intolerance by Session 3 (S3), Demonstrate safe equipment use (S3) & follows exercise prescrition (6) and Other: See below Intervention & Plan Plan/Intervention: Instruct warm-up & cool-down if exercising at > 2 METs, Instruct on symptoms of exercise intolerance & actions to take, Instruct & monitor on saf, Assess intial functional capacity & safety risk and Other See below 30-day Reassessments 30 day Reassessments:: Progressing Reassessment Notes & Comments:: Proper wqarm up and cool down explained and demonstrated to pt. Pt is able to return demonstration in her daily sessions. Exercise - 90-day Assessment Physician Prescribed Exercise Modalities: SciFit Stepper, SciFit Pro-II Ergometer and SciFit Lateral Doctor Of Pharmacy Exercise - Final/Discharge Physician Prescribed Exercise Modalities: SciFit Stepper, SciFit Pro-II Ergometer and SciFit Lateral Pence Nutrition - 30-Day Assessment Weight Mgt (Other Care) Height: 5 ft 2 in Weight:: 207 lb 8 oz BMI: 37.9 Nutrition - 60-Day Assessment Program Goals Nutrition Program Goals Patient has diagnosis of Hyperlipidemia (ICD E78)?: Yes Visit Date of Eval: 11/04/24 Session #:: 20 Cholesterol/Lipids (Other Core Measures) Determine presence & major risk factors that modify LDL goal: Hypertension or hypertensive medication, Low HDL cholesterol <40 mg/dL*, Family history of premature CHD in Male < 55 years: female <65 yearsFa and Age men > 45 years; women >/= 55 years Outcomes/Goals: Pt IDs own risk factors & lifestyle modifications by Session 10, Verbalizes symptoms of angina & response by session 3., Pt independently manages and Other Additional Outcomes/Goals: Intervention/Plan: Advocate for lipid panel cholesterol medication if applicable, Instruct on personal lipid levels & lipid goals/NCEP guidelines, Instruct on cholesterol and Other additional plan/int Diabetes (Other Core Measures) Diabetes Type: Not Applicable Weight Mgt (Other Care) Not Applicable: Yes Height: 5 ft 2 in Weight:: 207 lb 8 oz BMI: 37.9 Diagnosis Overweight/Obesity BMI> 30% ICD-10 E66: Yes Diagnosis High BMI/Morbid Obesity BMI> 35% ICD-10 Z68: Yes Outcomes/Goals: Pt sets, maintains & shows weight loss goal & trend during rehab and Other additional outcomes/goals Intervention/Plan: Instruct on ideal BMI & set weight loss goal w/patient, Assist pt to ID & incorporate diet changes for weight loss by S9, Refer to Structured Weight Loss program as appropriate, Encourage goal of using 250- 300dcal per session for weight loss and Other additional plan/interventions Healthy Eating Habits Will attend diet classes:: Yes Outcomes/Goals:: Consume diet rich in vegs,fruits,whole grain/high fiber,fish,lean meat, Limit sat/trans fats,cholesterol & added salts & sugars and Other additional outcome/goals: Intervention/Plan:: Assess current eating habits and Other Additional plan/interventions 30-day Reassessments:: Progressing Reassessment Notes & Comments:: Pt has attended nutrition class. Heart healthy low sodium diet encouraged. Pt encouraged to keep a food diary Education Gave educational materials for:: Signs & symptoms of hypoglycemia, Signs & symptoms of hyperglycemia, Relate diabetes to coronary artery disease and Healthy eating Core - Final Assessment Hypertension Resting Blood Pressure:: 130/72 [employer] [place] [employer] Hypertension Guidelines Core - 60-Day Assessment Visit Date of Eval: 11/04/24 Session #:: 20 Medication Compliance Preventative Medication(s):: JENARO inhibitor, Statin/lipid, Beta bill and Eliquis H/O mental health issues: depression, anxiety, or addiction?: No Doesn’t believe in the benefits of treatment?: No Believes medications are unnecessary or harmful?: No Has a concern about medication side effects?: No Expresses concern over the cost of medications?: No Outcomes/Goals: Verbalizes medications,desired effect & common side effects @ DC, Pt self-reports following medication regimen, Keeps card in wallet w/medications listed by DC and Other additional outcome/goals: Interventions/plans: Instruct on medication effects & side effects, Review medication list w/patient every two weeks, Instruct importance of taking meds as ordered & assist problem solving and Other additional Tobacco Use Tobacco Use: Non-smoker Hypertension Hypertension Diagnosis:: Hypertension ICD-10 I10 Resting Blood Pressure:: 124/78 Resting Blood Pressure:: 130/72 [employer] [place] [employer] Hypertension Guidelines Peak Exercise Blood Pressure:: 122/76 Outcomes/Goals: Able to verbalize/achieve optimal blood pressure <130/80, Incorporates diet changes & exercise for blood pressure control by DC and Other additional outcomes/goals Interventions/plan: Instruct on optimal blood pressure, hypertension & medications, Instruct on effects of sodium, alcohol, stress, exercise &hypertension and Other additional plan/interventions 30 day Reassessments:: Progressing Reassessment Notes & Comments:: Pt's BP's have been improving. Low sodium heart healthy diet encouraged. Will continue to monitor and report to pt's physician if necessary. Tobacco Cessation Referral Smoking Cessation Referral:: No Individual Education/Counseling:: No Education Schedule Given:: Yes Psychosocial - 30-Day Assess Target Goals Target Goals Referral to Behavioral Health PS - Interventions: Yes: Attend Stress Management Classes Outcomes/Goals: See list Psychosocial Outcomes/Goals:: ID's personal stressors & 2 strategies to manage stress by discharge and Other Additional outcome/goals: Psychosocial - 60-Day Assess VIsit Date of Eval: 11/04/24 Session #:: 20 History of previous Mental disease:: No Target Goals Target Goals Psychosocial Test Tool Used:: PHQ-9 Questionnaire phq-9 Severity See PHQ-9 Score: 3 Referral to Behavioral Health PS - Interventions: Yes: Attend Stress Management Classes Outcomes/Goals: See list Psychosocial Outcomes/Goals:: ID's personal stressors & 2 strategies to manage stress by discharge and Other Additional outcome/goals: Intervention/Plan: See List Interventions/Plan:: Assess stressors,coping strategies & signs of derpression on admission, Instruct/assist pt to develop coping & personal stress Mgt strategies, Refer to Behavioral Health if appropriate, Refer to Physician if appropriate, Instruct patient to recognize signs & symptoms of depression, Instruct patient to recog and Other additional plan/intervention 30-day Reassessments: 30 day Reassessments:: Met Reassessment Notes & Comments:: Pt has attended stress management class. Pt denies any psychosocial issues at this time. Psychosocial - 90-Day Assess Target Goals Target Goals Referral to Behavioral Health PS - Interventions: Yes: Attend Stress Management Classes Psychosocial - Final Assessmen Target Goals Target Goals Referral to Behavioral Health PS - Interventions: Yes: Attend Stress Management Classes Nutrition - 90-Day Assessment Weight Mgt (Other Care) Height: 5 ft 2 in Weight:: 207 lb 8 oz BMI: 37.9 Nutrition - Final Assessment Weight Mgt (Other Care) Height: 5 ft 2 in Weight:: 207 lb 8 oz BMI: 37.9
[2024-11-04 11:35] VITALS: BP 124/78; BP 130/72; BMI 37.9
== END 2024-11-28 23:59 ==
LOC: CR 14:15
PROVIDERS: PCP Internal Medicine; Referring Provider Nurse Practitioner Family; Visit Provider Nurse Practitioner Family
DX: Z95.1 Presence of aortocoronary bypass graft (principal); I25.10 Atherosclerotic heart disease of native coronary artery without angina pectoris
CPT/HCPCS: 93798

== ENCOUNTER 2024-12-19 14:15 | Outpatient (RCR) | payer MEDICARE, SELFPAY ==
[2024-11-04 11:35] VITALS: BMI 37.9
--- NOTE | 2024-12-01 11:24 | CR.ITP_ITS ---
Exercise - Initial Assessment Physician Prescribed Exercise Modalities: SciFit Stepper and SciFit Lateral Mid Level Project Manager Nutrition - Initial Assessment Weight Mgt (Other Care) Height: 5 ft 2 in Weight:: 207 lb 8 oz BMI: 37.9 Psychosocial - Initial Assess Target Goals Target Goals Referral to Behavioral Health PS - Interventions: Yes: Attend Stress Management Classes Patient Health Questionnaire PHQ-9 Screening 90-Day Re-eval Assessment: 1. Little interest or pleasure in doing things: Several days 2. Feeling down, depressed, or hopeless: Not at all 3. Trouble falling or staying asleep, or sleeping too much: Several days 4. Feeling tired or having little energy: Several days 5. Poor appetite or overeating: Not at all 6. Feeling bad about yourself -- or that you are a failure or have let yourself or your family down: Not at all 7. Trouble concentrating on things, such as reading the newspaper or watching television: Not at all 8. Moving or speaking so slowly that other people could have noticed. Or the opposite - being so fidgety or restless that you have been moving around a lot more than usual: Not at all 9. Thoughts that you would be better off , or of hurting yourself in some way: Not at all How difficult have these problems made it for you to do your work, take care of things at home, or get along with other people?: Somewhat difficult Total Score: 3 Self-Efficacy 6-Item Scale 90-Day Re-eval Assessment: We would like to know how confident you are in doing certain activities. Please select your confidence level for: Fatigue Select Number: 5 Physical Discomfort or Pain Select Number: 5 Emotional Distress Select Number: 9 Other Symptoms or Health Problems Select Number: 9 Different Tasks and Activities Select Number: 7 Medication Select Number: 9 Total Score:: 7 Nutrition Survey Nutrition Survey Instructions Scoring Instructions Exercise - 30-day Assessment Physician Prescribed Exercise Modalities: SciFit Stepper and SciFit Lateral Mid Level Project Manager Exercise - 60-day Assessment Physician Prescribed Exercise Modalities: SciFit Stepper and SciFit Lateral Mid Level Project Manager Exercise - 90-day Assessment Visit Date of Eval: 12/01/24 Session #:: 29 Physician Prescribed Exercise Modalities: SciFit Stepper and SciFit Lateral Bishop Frequency: 3x/week for 12 weeks [36 sessions] Intensity: 60-80% of age predicted maximum heart rate reserve Duration: 30 - 45 minutes Current METSs:: 5.7 Target Heart Rate:: 87-116 Current RPE:: 11.5-12 Maximum Excercise HR:: 104 Resting Blood Pressure: 117/63 Maximum Exercise Blood Pressure: 133/84 EKG Type: NSR to ST with a rare pac, pvc Outcomes & Goals Goals:: Verbalizes understanding of THR, RPE & goal METS by session 6, Documents in home exercise log/reports 30 min aerobic 5 day/wk by DC, Demonstrates accurate pulse taking by DC and Other additional outcome/goals: see below Intervention & Plan Exercise Program Goals: Instruct on personal THR & RPE, Instruct on MET level & personal MET goal, Show patient to take own pulse /validate performance until accurate, Instruct on home exercise and Other additional plan/int Physical Activity Home Exercise Physical Activity - Home Exercise: Safe Exercise, Warm-up, Self-monitoring, Cool-Down, Home Exercise > 30 min Daily and Sitting Time <3 hours/daily Outcomes & Goals Outcomes/Goals: Demonstrates correct Warm-up/exercise Cool-Down (S3) if = 2.5 METs, Verbalizes symptoms of exercise intolerance by Session 3 (S3), Demonstrate safe equipment use (S3) & follows exercise prescrition (6) and Other: See below Intervention & Plan Plan/Intervention: Instruct warm-up & cool-down if exercising at > 2 METs, Instruct on symptoms of exercise intolerance & actions to take, Instruct & monitor on saf, Assess intial functional capacity & safety risk and Other See below 30-day Reassessments 30 day Reassessments:: Met Reassessment Notes & Comments:: Pt is doing very well. Pt understands the benefits of exercise. Will continue to encourage and increase workloads. Exercise - Final/Discharge Physician Prescribed Exercise Modalities: SciFit Stepper and SciFit Lateral Mid Level Project Manager Nutrition - 30-Day Assessment Weight Mgt (Other Care) Height: 5 ft 2 in Weight:: 207 lb 8 oz BMI: 37.9 Nutrition - 60-Day Assessment Weight Mgt (Other Care) Height: 5 ft 2 in Weight:: 207 lb 8 oz BMI: 37.9 Core - 30-Day Assessment Hypertension [employer] [employer] Hypertension Guidelines Reassessment Notes & Comments:: Pt's BP's are within AHA normal limits. Core - Final Assessment Hypertension [place] [employer] [employer] Hypertension Guidelines Reassessment Notes & Comments:: Pt's BP's are within AHA normal limits. Core - Day Assessment Visit Date of Eval: 12/01/24 Session #:: 29 Medication Compliance Preventative Medication(s):: JENARO inhibitor, Statin/lipid, Beta bill and Eliquis H/O mental health issues: depression, anxiety, or addiction?: No Doesn?t believe in the benefits of treatment?: No Believes medications are unnecessary or harmful?: No Has a concern about medication side effects?: No Expresses concern over the cost of medications?: No Outcomes/Goals: Verbalizes medications,desired effect & common side effects @ DC, Pt self-reports following medication regimen, Keeps card in wallet w/medications listed by DC and Other additional outcome/goals: Interventions/plans: Instruct on medication effects & side effects, Review medication list w/patient every two weeks, Instruct importance of taking meds as ordered & assist problem solving and Other additional Tobacco Use Tobacco Use: Non-smoker Hypertension Hypertension Diagnosis:: Hypertension ICD-10 I10 Resting Blood Pressure:: 117/63 [place] [employer] Hypertension Guidelines Peak Exercise Blood Pressure:: 133/84 Outcomes/Goals: Able to verbalize/achieve optimal blood pressure <130/80, Incorporates diet changes & exercise for blood pressure control by DC and Other additional outcomes/goals Interventions/plan: Instruct on optimal blood pressure, hypertension & medications, Instruct on effects of sodium, alcohol, stress, exercise &hypertension and Other additional plan/interventions 30 day Reassessments:: Met Reassessment Notes & Comments:: Pt's BP's are within AHA normal limits. Tobacco Cessation Referral Smoking Cessation Referral:: No Individual Education/Counseling:: No Education Schedule Given:: Yes Psychosocial - 30-Day Assess Target Goals Target Goals Referral to Behavioral Health PS - Interventions: Yes: Attend Stress Management Classes Psychosocial - 60-Day Assess Target Goals Target Goals Referral to Behavioral Health PS - Interventions: Yes: Attend Stress Management Classes Psychosocial - -Day Assess VIsit Date of Eval: 12/01/24 Session #:: 29 History of previous Mental disease:: No History of Emotional Disorders: None Target Goals Target Goals Psychosocial Test Tool Used:: PHQ-9 Questionnaire phq-9 Severity See PHQ-9 Score: 3 Referral to Behavioral Health PS - Interventions: Yes: Attend Stress Management Classes Outcomes/Goals: See list Psychosocial Outcomes/Goals:: ID's personal stressors & 2 strategies to manage stress by discharge and Other Additional outcome/goals: Intervention/Plan: See List Interventions/Plan:: Assess stressors,coping strategies & signs of derpression on admission, Instruct/assist pt to develop coping & personal stress Mgt strategies, Refer to Behavioral Health if appropriate, Refer to Physician if appropriate, Instruct patient to recognize signs & symptoms of depression, Instruct patient to recog and Other additional plan/intervention 30-day Reassessments: 30 day Reassessments:: Met Reassessment Notes & Comments:: Pt denies any psychosocial issues at this time. Pt has attended stress management class. Psychosocial - Final Assessmen Target Goals Target Goals Referral to Behavioral Health PS - Interventions: Yes: Attend Stress Management Classes Nutrition - 90-Day Assessment Program Goals Nutrition Program Goals Patient has diagnosis of Hyperlipidemia (ICD E78)?: Yes Visit Date of Eval: 12/01/24 Session #:: 29 Cholesterol/Lipids (Other Core Measures) Determine presence & major risk factors that modify LDL goal: Hypertension or hypertensive medication, Low HDL cholesterol <40 mg/dL*, Family history of premature CHD in Male < 55 years: female <65 yearsFa and Age men > 45 years; women >/= 55 years Outcomes/Goals: Pt IDs own risk factors & lifestyle modifications by Session 10, Verbalizes symptoms of angina & response by session 3., Pt independently manages and Other Additional Outcomes/Goals: Intervention/Plan: Advocate for lipid panel cholesterol medication if applicable, Instruct on personal lipid levels & lipid goals/NCEP guidelines, Instruct on cholesterol and Other additional plan/int Diabetes (Other Core Measures) Diabetes Type: Not Applicable Weight Mgt (Other Care) Height: 5 ft 2 in Weight:: 207 lb 8 oz BMI: 37.9 Diagnosis Overweight/Obesity BMI> 30% ICD-10 E66: Yes Diagnosis High BMI/Morbid Obesity BMI> 35% ICD-10 Z68: Yes Outcomes/Goals: Pt sets, maintains & shows weight loss goal & trend during rehab and Other additional outcomes/goals Intervention/Plan: Instruct on ideal BMI & set weight loss goal w/patient, Assist pt to ID & incorporate diet changes for weight loss by S9, Refer to Structured Weight Loss program as appropriate, Encourage goal of using 250- 300dcal per session for weight loss and Other additional plan/interventions Healthy Eating Habits Will attend diet classes:: Yes Outcomes/Goals:: Consume diet rich in vegs,fruits,whole grain/high fiber,fish,lean meat, Limit sat/trans fats,cholesterol & added salts & sugars and Other additional outcome/goals: Intervention/Plan:: Assess current eating habits and Other Additional plan/interventions 30-day Reassessments:: Met Reassessment Notes & Comments:: Pt has attended nutrition class. Pt understands the benefits of a heart healthy low sodium diet. Education Gave educational materials for:: Signs & symptoms of hypoglycemia, Signs & symptoms of hyperglycemia, Relate diabetes to coronary artery disease and Healthy eating Nutrition - Final Assessment Weight Mgt (Other Care) Height: 5 ft 2 in Weight:: 207 lb 8 oz BMI: 37.9
[2024-12-01 11:41] VITALS: BP 117/63
[2024-12-01 11:52] VITALS: BP 117/63; BMI 37.9
== END 2024-12-29 23:59 ==
LOC: CR 14:15
PROVIDERS: PCP Internal Medicine; Referring Provider Nurse Practitioner Family; Visit Provider Nurse Practitioner Family
DX: Z95.1 Presence of aortocoronary bypass graft (principal); I25.10 Atherosclerotic heart disease of native coronary artery without angina pectoris
CPT/HCPCS: 93798

== ENCOUNTER 2024-12-29 08:00 | Outpatient (RCR) | payer MEDICARE, SELFPAY ==
[2024-12-01 11:52] VITALS: BMI 37.9
== END 2024-12-29 23:59 ==
LOC: CR 08:00
PROVIDERS: PCP Internal Medicine; Referring Provider Internal Medicine Cardiovascular Disease; Visit Provider Internal Medicine Cardiovascular Disease
DX: Z00.00 Encounter for general adult medical examination without abnormal findings (principal)

== ENCOUNTER 2025-01-19 08:00 | Outpatient (RCR) | payer SELFPAY ==
[2024-12-01 11:52] VITALS: BMI 37.9
== END 2025-01-29 23:59 ==
LOC: CR 08:00
PROVIDERS: PCP Internal Medicine; Referring Provider Internal Medicine Cardiovascular Disease; Visit Provider Internal Medicine Cardiovascular Disease
DX: Z00.00 Encounter for general adult medical examination without abnormal findings (principal)